=== PATIENT | male | born 1985 | race American Indian/Alaskan Native ===

== ENCOUNTER 2021-06-03 16:04 | Inpatient (IN) | payer BC, MEDICAID, OTHER ==
[2021-06-03] MEDS ORDERED: Sodium Chloride 0.9% 1,000 ML IV SCH (16:30)
[2021-06-03 17:31] LABS: PTT,PARTIAL THROMBOPLSTIN TIME 42.3 SEC (22.0-34.0)
[2021-06-03 17:43] LABS: ANION GAP 15.8 mEq/L (7-13); CHLORIDE,CL 96 mmol/L (98-107); SODIUM,NA 130 mmol/L (136-145)
[2021-06-03] MEDS: Sodium Chloride 0.9% 10 ML Syringe FLUSH PRN (17:52)
[2021-06-03] MEDS ORDERED: Cefepime 1 GM in Sodium Chloride 0.9% 50 ML IV ONE (18:07)
[2021-06-03 18:17] LABS: CORONAVIRUS COVID-19 NAA NEGATIVE (NEGATIVE); RESPIRATORY SYNCYTIAL VIR NAA NEGATIVE (NEGATIVE)
--- NOTE | 2021-06-03 18:34 | CT ---
PROCEDURE INFORMATION: Exam: CT Head Without Contrast Exam date and time: 06/03/2021 6:16 PM Age: 35 years old Clinical indication: Other: Encephalopathy, ? intracranial bleed TECHNIQUE: Imaging protocol: Computed tomography of the head without contrast. Radiation optimization: All CT scans at this facility use at least one of these dose optimization techniques: automated exposure control; mA and/or kV adjustment per patient size (includes targeted exams where dose is matched to clinical indication); or iterative reconstruction. COMPARISON: No relevant prior studies available. FINDINGS: Brain: No evidence for acute transcortical infarct. No mass effect or midline shift. No extra-axial collection. No acute intracranial hemorrhage. Basal cisterns are patent. Cerebral ventricles: No ventriculomegaly. Paranasal sinuses: Visualized sinuses are unremarkable. No fluid levels. Mastoid air cells: Visualized mastoid air cells are well aerated. Bones/joints: Unremarkable. No acute fracture. Soft tissues: Unremarkable. IMPRESSION: No evidence for acute transcortical infarct, acute intracranial hemorrhage, or mass effect.
--- NOTE | 2021-06-03 18:38 | CT ---
PROCEDURE INFORMATION: Exam: CT Chest Without Contrast; Diagnostic Exam date and time: 06/03/2021 6:20 PM Age: 35 years old Clinical indication: Other: Severe sepsis TECHNIQUE: Imaging protocol: Diagnostic computed tomography of the chest without contrast. Radiation optimization: All CT scans at this facility use at least one of these dose optimization techniques: automated exposure control; mA and/or kV adjustment per patient size (includes targeted exams where dose is matched to clinical indication); or iterative reconstruction. COMPARISON: No relevant prior studies available. FINDINGS: Lungs: Micro nodules in left lower lobe, dependent right lower lobe posterior margin of right upper lobe. No focal consolidation . Pleural spaces: Unremarkable. No pneumothorax. No pleural effusion. Heart: Unremarkable. No cardiomegaly. No pericardial effusion. Aorta: Unremarkable. No aortic aneurysm. Lymph nodes: Unremarkable. No enlarged lymph nodes. Bones/joints: Unremarkable. No acute fracture. Soft tissues: Unremarkable. IMPRESSION: Infectious or inflammatory bronchiolitis scattered throughout both lungs PROCEDURE INFORMATION: Exam: CT Abdomen And Pelvis Without Contrast Exam date and time: 06/03/2021 6:20 PM Age: 35 years old Clinical indication: Other: Severe sepsis TECHNIQUE: Imaging protocol: Computed tomography of the abdomen and pelvis without contrast. Radiation optimization: All CT scans at this facility use at least one of these dose optimization techniques: automated exposure control; mA and/or kV adjustment per patient size (includes targeted exams where dose is matched to clinical indication); or iterative reconstruction. COMPARISON: No relevant prior studies available. FINDINGS: Liver: Normal. No mass. Gallbladder and bile ducts: Normal. No calcified stones. No ductal dilation. Pancreas: Normal. No ductal dilation. Spleen: Normal. No splenomegaly. Adrenal glands: Normal. No mass. Kidneys and ureters: Normal. No hydronephrosis. Stomach and bowel: Unremarkable. No obstruction. No mucosal thickening. Appendix: No evidence of appendicitis. Intraperitoneal space: Small amount of free fluid pelvis . Vasculature: Unremarkable. No abdominal aortic aneurysm. Lymph nodes: Unremarkable. No enlarged lymph nodes. Urinary bladder: Unremarkable as visualized. Reproductive: Unremarkable as visualized. Bones/joints: Unremarkable. No acute fracture. Soft tissues: Unremarkable. IMPRESSION: Nonspecific small amount of free fluid in pelvis
[2021-06-03] MEDS ORDERED: Albuterol/Ipratropium 3.0-0.5 MG/3 ML Neb Soln NEB ONE (18:46)
[2021-06-03] MEDS ORDERED: Albuterol/Ipratropium 3.0-0.5 MG/3 ML Neb Soln ONE (18:53)
[2021-06-03] MEDS ORDERED: metroNIDAZOLE/Normal Saline 500 MG in Premix Bag 100 BAG IV ONE (19:17)
--- NOTE | 2021-06-03 19:23 | EDM.PDOC ---
Scribed by Anne-Marie Sanchez 06/03/21 1920 for Josse Aguayo MD ED HPI GENERAL MEDICAL PROBLEM - General Chief Complaint: General Stated Complaint: AMBULANCE Time Seen by Provider: 06/03/21 16:16 Source of Information: Reports: Patient, EMS, EMS Notes Reviewed, RN, RN Notes Reviewed History Limitations: Reports: No Limitations - History of Present Illness INITIAL COMMENTS - FREE TEXT/NARRATIVE: Patient arrives by [facility] Patient was seen at [facility] for weakness and was sent here after lab results in clinic indicated elevated WBC, low sodium, and pt with confusion and unexplained wt loss. Patient arrives confused and appears cachetic with dry mucous membranes and states that he has not been able to eat much for about 2 months. Patient does have complaint of bilateral leg pain and has a mild cough. Pt is unable to provide any further history. No old records are available at this time. Onset: Gradual Duration: Getting Worse Location: Reports: Generalized Quality: Reports: Ache Severity: Severe Improves with: Reports: None Worsens with: Reports: None Associated Symptoms: Reports: No Other Symptoms - Related Data Home Meds: Home Meds . [No Known Home Meds] 06/03/21 [History] Social & Family History - Family History Family Medical History: Unobtainable - Living Situation & Occupation Living situation: Reports: with Family Occupation: Unemployed ED ROS GENERAL - Review of Systems Review Of Systems: Unable To Obtain Reason Not Obtained: altered mental status ED EXAM, GENERAL - Physical Exam Exam: See Below Exam Limited By: Altered Mental Status General Appearance: Alert, Cachetic Eye Exam: Bilateral Eye: EOMI, Normal Inspection, PERRL Ears: Hearing Grossly Normal Nose: Normal Inspection Throat/Mouth: Normal Voice, No Airway Compromise, Other (Very dry oral mucosa) Head: Atraumatic, Normocephalic Neck: Normal Inspection, Supple, Non-Tender, Full Range of Motion Respiratory/Chest: No Respiratory Distress, Lungs Clear, No Accessory Muscle Use, Chest Non-Tender, Decreased Breath Sounds, Other (Occ. dry cough). No: Crackles, Rales, Rhonchi, Wheezing Cardiovascular: Regular Rate, Rhythm, No Edema GI/Abdominal: Normal Bowel Sounds, Soft, Non-Tender, No Organomegaly, No Distention, No Mass. No: Guarding, Rigid, Rebound Back Exam: Normal Inspection Extremities: Normal Inspection Neurological: No Motor/Sensory Deficits, Confused Psychiatric: Flat Affect Skin Exam: Warm, Dry, Intact, Normal Color, No Rash #1 Interpretation EKG Date: 06/03/21 Time: 16:37 Rhythm: A-Fib Rate (Beats/Min): 121 Mary D: Normal P-Wave: Present QRS: Normal ST-T: Normal QT: Normal Course - Vital Signs Last Recorded V/S: Last Vital Signs Temp 97.5 F 06/03/21 16:21 Pulse 87 06/03/21 16:21 Resp 20 06/03/21 16:21 BP 105/57 L 06/03/21 16:21 Pulse Ox 97 06/03/21 16:21 - Orders/Labs/Meds Orders: Active Orders 24 hr Category Date Time Status EKG 12 Lead [EKG Documentation Completion] [RC] STAT Care 06/03/21 16:16 Active Peripheral IV Care [RC] . DIRECTED Care 06/03/21 16:18 Active CBC WITH AUTO DIFF [HEME] Stat Lab 06/03/21 17:01 Results CULTURE BLOOD [BC] Stat Lab 06/03/21 16:55 Received CULTURE BLOOD [BC] Stat Lab 06/03/21 17:01 Received DRUG SCREEN URINE BIORAD [URCHEM] Stat Lab 06/03/21 16:16 Ordered HEPATITIS PANEL (4) [REF] Routine Lab 06/03/21 17:01 Received MANUAL DIFFERENTIAL QA/NC [HEME] Stat Lab 06/03/21 17:01 Results REFLEX LACTIC ACID YES OR NO [CHEM] Routine Lab 06/03/21 17:58 Received RPR (SYPHILIS SERO) W/ RFLX [REF] Routine Lab 06/03/21 17:01 Received UA RFX SURINDER AND CULT IF INDIC [URIN] Stat Lab 06/03/21 16:17 Ordered Sodium Chloride 0.9% [Normal Saline] 1,000 ml Med 06/03/21 16:30 Active IV ASDIRECTED Sodium Chloride 0.9% [Saline Flush] Med 06/03/21 16:17 Active 10 ml FLUSH ASDIRECTED PRN Blood Culture x2 Reflex Set [OM.PC] Stat Oth 06/03/21 16:16 Ordered Peripheral IV Insertion Adult [OM.PC] Stat Oth 06/03/21 16:16 Ordered Medication Orders Sodium Chloride (Normal Saline) 1,000 mls @ 100 mls/hr IV ASDIRECTED NABIL Last Admin: 06/03/21 17:52 Dose: 100 mls/hr Documented by: [email or web address] Sodium Chloride (Sodium Chloride 0.9% 10 Ml Syringe) 10 ml FLUSH ASDIRECTED PRN PRN Reason: Keep Vein Open Last Admin: 06/03/21 17:52 Dose: 10 ml Documented by: [email or web address] Labs: Laboratory Tests 06/03/21 06/03/21 06/03/21 Range/Units 16:55 17:01 17:01 WBC 19.2 H (5.0-10.0) 10^3/uL RBC 4.34 L (4.6-6.2) 10^6/uL Hgb 10.7 L (14.0-18.0) g/dL Hct 31.6 L (40.0-54.0) % MCV 72.8 L (80-100) fL MCH 24.7 L (27.0-34.0) pg MCHC 33.9 (33.0-35.0) g/dL Plt Count 131 L (150-450) 10^3/uL Neut % (Auto) 95.7 H (42.2-75.2) % Lymph % (Auto) 1.9 L (20.5-50.1) % [place] % (Auto) 2.3 (2-8) % Eos % (Auto) 0.0 L (1.0-3.0) % Baso % (Auto) 0.1 (0.0-1.0) % Add Manual Diff Yes PT 12.3 H (9.0-12.0) SEC INR 1.2 (0.9-1.2) APTT 42.3 H (22.0-34.0) SEC Sodium 130 L (136-145) mmol/L Potassium 4.8 (3.5-5.1) mmol/L Chloride 96 L (98-107) mmol/L Carbon Dioxide 23 (21-32) mmol/L Anion Gap 15.8 H (7-13) mEq/L BUN 35 H (7-18) mg/dL Creatinine 1.88 H (0.70-1.30) mg/dL Est Cr Clr Drug Dosing TNP Estimated GFR (MDRD) 41 BUN/Creatinine Ratio 18.6 (No establ ref range) Glucose 61 L (70-99) mg/dL Lactic Acid (0.4-2.0) mmol/L Calcium 6.5 L (8.5-10.1) mg/dL Magnesium 1.8 (1.8-2.4) mg/dL Total Bilirubin 0.6 (0.2-1.0) mg/dL AST 170 H (15-37) U/L ALT 131 H (16-63) U/L Alkaline Phosphatase 283 H (46-116) U/L Creatine Kinase 359 H (39-308) U/L Troponin I High Sens 27 (<=76) pg/mL C-Reactive Protein 18.7 H (0.0-0.9) mg/dL Total Protein 6.0 L (6.4-8.2) g/dL Albumin 1.4 L (3.4-5.0) g/dL Globulin 4.6 Albumin/Globulin Ratio 0.30 TSH, Ultra Sensitive 4.12 H (0.36-3.74) uIU/mL Ethyl Alcohol < 3 (0) mg/dL HIV-1 Antibody (NONREACTIVE) HIV-2 Antibody (NONREACTIVE) HIV P24 Antigen (NONREACTIVE) Influenza Type A RNA (NEGATIVE) RSV RNA (INAAT) (NEGATIVE) Influenza Type B RNA (NEGATIVE) SARS-CoV-2 RNA (ARGENIS) (NEGATIVE) 06/03/21 06/03/21 06/03/21 Range/Units 17:01 17:01 17:17 WBC (5.0-10.0) 10^3/uL RBC (4.6-6.2) 10^6/uL Hgb (14.0-18.0) g/dL Hct (40.0-54.0) % MCV (80-100) fL MCH (27.0-34.0) pg MCHC (33.0-35.0) g/dL Plt Count (150-450) 10^3/uL Neut % (Auto) (42.2-75.2) % Lymph % (Auto) (20.5-50.1) % [place] % (Auto) (2-8) % Eos % (Auto) (1.0-3.0) % Baso % (Auto) (0.0-1.0) % Add Manual Diff PT (9.0-12.0) SEC INR (0.9-1.2) APTT (22.0-34.0) SEC Sodium (136-145) mmol/L Potassium (3.5-5.1) mmol/L Chloride (98-107) mmol/L Carbon Dioxide (21-32) mmol/L Anion Gap (7-13) mEq/L BUN (7-18) mg/dL Creatinine (0.70-1.30) mg/dL Est Cr Clr Drug Dosing Estimated GFR (MDRD) BUN/Creatinine Ratio (No establ ref range) Glucose (70-99) mg/dL Lactic Acid 4.2 H* (0.4-2.0) mmol/L Calcium (8.5-10.1) mg/dL Magnesium (1.8-2.4) mg/dL Total Bilirubin (0.2-1.0) mg/dL AST (15-37) U/L ALT (16-63) U/L Alkaline Phosphatase (46-116) U/L Creatine Kinase (39-308) U/L Troponin I High Sens (<=76) pg/mL C-Reactive Protein (0.0-0.9) mg/dL Total Protein (6.4-8.2) g/dL Albumin (3.4-5.0) g/dL Globulin Albumin/Globulin Ratio TSH, Ultra Sensitive (0.36-3.74) uIU/mL Ethyl Alcohol (0) mg/dL HIV-1 Antibody Non-reactive (NONREACTIVE) HIV-2 Antibody Non-reactive (NONREACTIVE) HIV P24 Antigen Non-reactive (NONREACTIVE) Influenza Type A RNA Negative (NEGATIVE) RSV RNA (INAAT) Negative (NEGATIVE) Influenza Type B RNA Negative (NEGATIVE) SARS-CoV-2 RNA (ARGENIS) Negative (NEGATIVE) Meds: Medications Generic Name Dose Route Start Last Admin Trade Name Freq PRN Reason Stop Dose Admin Sodium Chloride 1,000 mls @ 100 mls/hr 06/03/21 16:30 06/03/21 17:52 Normal Saline IV 100 mls/hr ASDIRECTED NABIL Administration Sodium Chloride 10 ml 06/03/21 16:17 06/03/21 17:52 Sodium Chloride 0.9% 10 Ml Syringe FLUSH 10 ml ASDIRECTED PRN Administration Keep Vein Open Discontinued Medications Generic Name Dose Route Start Last Admin Trade Name Freq PRN Reason Stop Dose Admin Albuterol/Ipratropium 3 ml 06/03/21 18:46 06/03/21 18:53 Albuterol/Ipratropium 3.0-0.5 Mg/3 Ml Neb Soln NEB 06/03/21 18:47 3 ml ONETIME ONE Administration Albuterol/Ipratropium Confirm 06/03/21 18:53 Albuterol/Ipratropium 3.0-0.5 Mg/3 Ml Neb Soln Administered 06/03/21 18:54 Dose 3 ml .ROUTE .STK-MED ONE Cefepime HCl 1 gm/ Sodium 50 mls @ 100 mls/hr 06/03/21 18:07 06/03/21 18:48 Chloride IV 06/03/21 18:36 100 mls/hr ONETIME ONE Administration - Radiology Interpretation Free Text/Narrative:: CT Head: see Rad. report. CT Chest/Abd/Pelvic: see Rad. report. Departure - Departure Time of Disposition: 19:21 (admit to Dr. Patterson/[place]) Disposition: Admitted As Inpatient 64 Condition: Fair, Undetermined Clinical Impression: Cachexia, Hyponatremia, Unexplained weight loss Sepsis Qualifiers: Sepsis type: sepsis due to unspecified organism Sepsis acute organ dysfunction status: without acute organ dysfunction Qualified Code(s): A41.9 - Sepsis, unspecified organism - Discharge Information Sepsis Event Note (ED) - Focused Exam Vital Signs: Vital Signs Temp Pulse Resp BP Pulse Ox 06/03/21 16:21 97.5 F 87 20 105/57 L 97 - My Orders Last 24 Hours: My Active Orders 06/03/21 16:16 EKG 12 Lead [EKG Documentation Completion] [RC] STAT DRUG SCREEN URINE BIORAD [URCHEM] Stat Blood Culture x2 Reflex Set [OM.PC] Stat Peripheral IV Insertion Adult [OM.PC] Stat 06/03/21 16:17 UA RFX SURINDER AND CULT IF INDIC [URIN] Stat Sodium Chloride 0.9% [Saline Flush] 10 ml FLUSH ASDIRECTED PRN 06/03/21 16:18 Peripheral IV Care [RC] . DIRECTED 06/03/21 16:30 Sodium Chloride 0.9% [Normal Saline] 1,000 ml IV ASDIRECTED 06/03/21 16:55 CULTURE BLOOD [BC] Stat 06/03/21 17:01 CBC WITH AUTO DIFF [HEME] Stat CULTURE BLOOD [BC] Stat HEPATITIS PANEL (4) [REF] Routine MANUAL DIFFERENTIAL QA/NC [HEME] Stat RPR (SYPHILIS SERO) W/ RFLX [REF] Routine 06/03/21 17:58 REFLEX LACTIC ACID YES OR NO [CHEM] Routine - Assessment/Plan Last 24 Hours: My Active Orders 06/03/21 16:16 EKG 12 Lead [EKG Documentation Completion] [RC] STAT DRUG SCREEN URINE BIORAD [URCHEM] Stat Blood Culture x2 Reflex Set [OM.PC] Stat Peripheral IV Insertion Adult [OM.PC] Stat 06/03/21 16:17 UA RFX SURINDER AND CULT IF INDIC [URIN] Stat Sodium Chloride 0.9% [Saline Flush] 10 ml FLUSH ASDIRECTED PRN 06/03/21 16:18 Peripheral IV Care [RC] . DIRECTED 06/03/21 16:30 Sodium Chloride 0.9% [Normal Saline] 1,000 ml IV ASDIRECTED 06/03/21 16:55 CULTURE BLOOD [BC] Stat 06/03/21 17:01 CBC WITH AUTO DIFF [HEME] Stat CULTURE BLOOD [BC] Stat HEPATITIS PANEL (4) [REF] Routine MANUAL DIFFERENTIAL QA/NC [HEME] Stat RPR (SYPHILIS SERO) W/ RFLX [REF] Routine 06/03/21 17:58 REFLEX LACTIC ACID YES OR NO [CHEM] Routine I have read and agree with the documentation that has been completed regarding this visit. By signing this record, I attest that the documentation was completed in my physical presence and is an accurate record of the encounter.
[2021-06-03] MEDS ORDERED: 50% Dextrose in Water 50 ML Syringe ONE (19:49)
[2021-06-03] MEDS ORDERED: 50% Dextrose in Water 50 ML Syringe IVPUSH ONE (19:53)
[2021-06-03] MEDS ORDERED: Acetaminophen 325 MG Tab PO PRN (20:13)
[2021-06-03] MEDS ORDERED: Ondansetron 4 MG Tab.DIS PO PRN (20:13)
[2021-06-03] MEDS ORDERED: Ondansetron 4 MG/2 ML SDV IVPUSH PRN (20:13)
--- NOTE | 2021-06-03 20:26 | PCM.HP ---
H&P History of Present Illness - General Date of Service: 06/03/21 Admit Problem/Dx: Admission Diagnosis/Problem Admission Diagnosis/Problem Septicemia, Sepsis Source of Information: Patient, Provider (ER) - History of Present Illness Initial Comments - Free Text/Narative: 35 yo with limited information from his past from patient - he denies chronic medical problems has been loosing wght for 2-3 months getting weaker has cough diffuse joint pain c/o cough for days feels warm not taking meds, no known allergy went to local clinic - noted hyponatremia NA: 126, wght loss sent to ER - Related Data Allergies/Adverse Reactions: Allergies Allergy/AdvReac Type Severity Reaction Status Date / Time No Known Allergies Allergy Verified 06/03/21 17:30 Home Medications: Home Meds . [No Known Home Meds] 06/03/21 [History] Past Medical History Respiratory History: Reports: Asthma Psychiatric History: Reports: Depression Endocrine/Metabolic History: Reports: Hyperthyroidism Social & Family History - Family History Family Medical History: Unobtainable - Tobacco Use Tobacco Use Status *Q: Current Status Unknown - Recreational Drug Use Recreational Drug Use: No - Living Situation & Occupation Living situation: Reports: with Family Occupation: Unemployed H&P Review of Systems - Review of Systems: Review Of Systems: Unable To Obtain Reason Not Obtained: limited due to poor historian, confusion General: Reports: Fever (subjective) Pulmonary: Reports: Cough, Sputum. Denies: Shortness of Breath, Hemoptysis Cardiovascular: Denies: Chest Pain, Edema Gastrointestinal: Reports: Anorexia, Decreased Appetite. Denies: Nausea Musculoskeletal: Reports: Muscle Stiffness Psychiatric: Reports: Confusion Neurological: Reports: Confusion Hematologic/Lymphatic: Reports: Anemia Exam - Exam Exam: See Below - Vital Signs Vital Signs: Last Vital Signs Temp 97.5 F 06/03/21 16:21 Pulse 87 06/03/21 16:21 Resp 20 06/03/21 16:21 BP 105/57 L 06/03/21 16:21 Pulse Ox 97 06/03/21 16:21 Weight: 111 lb - Exam General: Alert, Other (severely cachectic) HEENT: EOMI Neck: Supple Lungs: Clear to Auscultation, Normal Respiratory Effort. No: Wheezing Cardiovascular: Regular Rate, Regular Rhythm, Tachycardia GI/Abdominal Exam: Normal Bowel Sounds, Soft, Non-Tender Extremities: No Pedal Edema - Patient Data Lab Results Last 24 hrs: Laboratory Results - last 24 hr 06/03/21 06/03/21 06/03/21 Range/Units 16:55 17:01 17:01 WBC 19.2 H (5.0-10.0) 10^3/uL RBC 4.34 L (4.6-6.2) 10^6/uL Hgb 10.7 L (14.0-18.0) g/dL Hct 31.6 L (40.0-54.0) % MCV 72.8 L (80-100) fL MCH 24.7 L (27.0-34.0) pg MCHC 33.9 (33.0-35.0) g/dL Plt Count 131 L (150-450) 10^3/uL Neut % (Auto) 95.7 H (42.2-75.2) % Lymph % (Auto) 1.9 L (20.5-50.1) % Starke % (Auto) 2.3 (2-8) % Eos % (Auto) 0.0 L (1.0-3.0) % Baso % (Auto) 0.1 (0.0-1.0) % Add Manual Diff Yes PT 12.3 H (9.0-12.0) SEC INR 1.2 (0.9-1.2) APTT 42.3 H (22.0-34.0) SEC Sodium 130 L (136-145) mmol/L Potassium 4.8 (3.5-5.1) mmol/L Chloride 96 L (98-107) mmol/L Carbon Dioxide 23 (21-32) mmol/L Anion Gap 15.8 H (7-13) mEq/L BUN 35 H (7-18) mg/dL Creatinine 1.88 H (0.70-1.30) mg/dL Est Cr Clr Drug Dosing TNP Estimated GFR (MDRD) 41 BUN/Creatinine Ratio 18.6 (No establ ref range) Glucose 61 L (70-99) mg/dL POC Glucose (70-99) mg/dL Lactic Acid (0.4-2.0) mmol/L Calcium 6.5 L (8.5-10.1) mg/dL Magnesium 1.8 (1.8-2.4) mg/dL Total Bilirubin 0.6 (0.2-1.0) mg/dL AST 170 H (15-37) U/L ALT 131 H (16-63) U/L Alkaline Phosphatase 283 H (46-116) U/L Creatine Kinase 359 H (39-308) U/L Troponin I High Sens 27 (<=76) pg/mL C-Reactive Protein 18.7 H (0.0-0.9) mg/dL Total Protein 6.0 L (6.4-8.2) g/dL Albumin 1.4 L (3.4-5.0) g/dL Globulin 4.6 Albumin/Globulin Ratio 0.30 TSH, Ultra Sensitive 4.12 H (0.36-3.74) uIU/mL Ethyl Alcohol < 3 (0) mg/dL HIV-1 Antibody (NONREACTIVE) HIV-2 Antibody (NONREACTIVE) HIV P24 Antigen (NONREACTIVE) Influenza Type A RNA (NEGATIVE) RSV RNA (INAAT) (NEGATIVE) Influenza Type B RNA (NEGATIVE) SARS-CoV-2 RNA (ARGENIS) (NEGATIVE) 06/03/21 06/03/21 06/03/21 Range/Units 17:01 17:01 17:17 WBC (5.0-10.0) 10^3/uL RBC (4.6-6.2) 10^6/uL Hgb (14.0-18.0) g/dL Hct (40.0-54.0) % MCV (80-100) fL MCH (27.0-34.0) pg MCHC (33.0-35.0) g/dL Plt Count (150-450) 10^3/uL Neut % (Auto) (42.2-75.2) % Lymph % (Auto) (20.5-50.1) % Starke % (Auto) (2-8) % Eos % (Auto) (1.0-3.0) % Baso % (Auto) (0.0-1.0) % Add Manual Diff PT (9.0-12.0) SEC INR (0.9-1.2) APTT (22.0-34.0) SEC Sodium (136-145) mmol/L Potassium (3.5-5.1) mmol/L Chloride (98-107) mmol/L Carbon Dioxide (21-32) mmol/L Anion Gap (7-13) mEq/L BUN (7-18) mg/dL Creatinine (0.70-1.30) mg/dL Est Cr Clr Drug Dosing Estimated GFR (MDRD) BUN/Creatinine Ratio (No establ ref range) Glucose (70-99) mg/dL POC Glucose (70-99) mg/dL Lactic Acid 4.2 H* (0.4-2.0) mmol/L Calcium (8.5-10.1) mg/dL Magnesium (1.8-2.4) mg/dL Total Bilirubin (0.2-1.0) mg/dL AST (15-37) U/L ALT (16-63) U/L Alkaline Phosphatase (46-116) U/L Creatine Kinase (39-308) U/L Troponin I High Sens (<=76) pg/mL C-Reactive Protein (0.0-0.9) mg/dL Total Protein (6.4-8.2) g/dL Albumin (3.4-5.0) g/dL Globulin Albumin/Globulin Ratio TSH, Ultra Sensitive (0.36-3.74) uIU/mL Ethyl Alcohol (0) mg/dL HIV-1 Antibody Non-reactive (NONREACTIVE) HIV-2 Antibody Non-reactive (NONREACTIVE) HIV P24 Antigen Non-reactive (NONREACTIVE) Influenza Type A RNA Negative (NEGATIVE) RSV RNA (INAAT) Negative (NEGATIVE) Influenza Type B RNA Negative (NEGATIVE) SARS-CoV-2 RNA (ARGENIS) Negative (NEGATIVE) 06/03/21 Range/Units 19:48 WBC (5.0-10.0) 10^3/uL RBC (4.6-6.2) 10^6/uL Hgb (14.0-18.0) g/dL Hct (40.0-54.0) % MCV (80-100) fL MCH (27.0-34.0) pg MCHC (33.0-35.0) g/dL Plt Count (150-450) 10^3/uL Neut % (Auto) (42.2-75.2) % Lymph % (Auto) (20.5-50.1) % Starke % (Auto) (2-8) % Eos % (Auto) (1.0-3.0) % Baso % (Auto) (0.0-1.0) % Add Manual Diff PT (9.0-12.0) SEC INR (0.9-1.2) APTT (22.0-34.0) SEC Sodium (136-145) mmol/L Potassium (3.5-5.1) mmol/L Chloride (98-107) mmol/L Carbon Dioxide (21-32) mmol/L Anion Gap (7-13) mEq/L BUN (7-18) mg/dL Creatinine (0.70-1.30) mg/dL Est Cr Clr Drug Dosing Estimated GFR (MDRD) BUN/Creatinine Ratio (No establ ref range) Glucose (70-99) mg/dL POC Glucose 37 L* (70-99) mg/dL Lactic Acid (0.4-2.0) mmol/L Calcium (8.5-10.1) mg/dL Magnesium (1.8-2.4) mg/dL Total Bilirubin (0.2-1.0) mg/dL AST (15-37) U/L ALT (16-63) U/L Alkaline Phosphatase (46-116) U/L Creatine Kinase (39-308) U/L Troponin I High Sens (<=76) pg/mL C-Reactive Protein (0.0-0.9) mg/dL Total Protein (6.4-8.2) g/dL Albumin (3.4-5.0) g/dL Globulin Albumin/Globulin Ratio TSH, Ultra Sensitive (0.36-3.74) uIU/mL Ethyl Alcohol (0) mg/dL HIV-1 Antibody (NONREACTIVE) HIV-2 Antibody (NONREACTIVE) HIV P24 Antigen (NONREACTIVE) Influenza Type A RNA (NEGATIVE) RSV RNA (INAAT) (NEGATIVE) Influenza Type B RNA (NEGATIVE) SARS-CoV-2 RNA (ARGENIS) (NEGATIVE) Result Diagrams: 06/03/21 17:01 06/03/21 17:01 - Problem List (1) Pneumonia SNOMED Code(s): 979008762 ICD Code: J18.9 - PNEUMONIA, UNSPECIFIED ORGANISM Status: Acute Current Visit: Yes (2) Pneumonia SNOMED Code(s): 702823229 ICD Code: J18.9 - PNEUMONIA, UNSPECIFIED ORGANISM Status: Acute Current Visit: Yes (3) Renal failure SNOMED Code(s): 24853026 ICD Code: N19 - UNSPECIFIED KIDNEY FAILURE Status: Acute Current Visit: Yes (4) Anemia SNOMED Code(s): 924859076 ICD Code: D64.9 - ANEMIA, UNSPECIFIED Status: Acute Current Visit: Yes (5) Acute metabolic encephalopathy SNOMED Code(s): 11654867, 702448681 ICD Code: G93.41 - METABOLIC ENCEPHALOPATHY Status: Acute Current Visit: Yes (6) Cachexia SNOMED Code(s): 047689933 ICD Code: R64 - CACHEXIA Status: Acute Current Visit: Yes (7) Hyponatremia SNOMED Code(s): 85413864 ICD Code: E87.1 - HYPO-OSMOLALITY AND HYPONATREMIA Status: Acute Current Visit: Yes (8) Sepsis SNOMED Code(s): 42026491 ICD Code: A41.9 - SEPSIS, UNSPECIFIED ORGANISM Status: Acute Current Visit: Yes Qualifiers: Sepsis type: sepsis due to unspecified organism Sepsis acute organ dysfunction status: without acute organ dysfunction Qualified Code(s): A41.9 - Sepsis, unspecified organism (9) Unexplained weight loss SNOMED Code(s): 295714969 ICD Code: R63.4 - ABNORMAL WEIGHT LOSS Status: Acute Current Visit: Yes Problem List Initiated/Reviewed/Updated: Yes Orders Last 24hrs: Active Orders 24 hr Category Date Time Status Admission Diagnosis [ADT] Stat ADT 06/03/21 18:02 Ordered Admission Status [Patient Status] [ADT] Routine ADT 06/03/21 18:02 Active Nurse Communication: Isolation [RC] ASDIRECTED Care 06/03/21 19:33 Active Oxygen Therapy [RC] PRN Care 06/03/21 20:13 Ordered Peripheral IV Care [RC] . DIRECTED Care 06/03/21 16:18 Active RT Aerosol Therapy [RC] ASDIRECTED Care 06/03/21 18:46 Active Up With Assistance [RC] ASDIRECTED Care 06/03/21 20:13 Ordered VTE/DVT Education [RC] PER UNIT ROUTINE Care 06/03/21 20:13 Ordered Vital Signs [RC] Q4H Care 06/03/21 20:13 Ordered OT Evaluation and Treatment [CONS] Routine Cons 06/03/21 20:13 Ordered PT Evaluation and Treatment [CONS] Routine Cons 06/03/21 20:13 Ordered Regular Diet [DIET] Diet 06/03/21 Breakfast Ordered ACID FAST BACILLI SMEAR [AFB] DAILY Lab 06/04/21 19:45 Ordered ACID FAST BACILLI SMEAR [AFB] DAILY Lab 06/05/21 19:45 Ordered AMMONIA VENOUS [CHEM] Routine Lab 06/03/21 19:12 Ordered BASIC METABOLIC PANEL,BMP [CHEM] AM Lab 06/04/21 05:15 Ordered CBC WITH AUTO DIFF [HEME] AM Lab 06/04/21 05:15 Ordered CBC WITH AUTO DIFF [HEME] Stat Lab 06/03/21 17:01 Results CULTURE BLOOD [BC] Stat Lab 06/03/21 16:55 Received CULTURE BLOOD [BC] Stat Lab 06/03/21 17:01 Received CULTURE SPUTUM + SMEAR [RM] Routine Lab 06/03/21 19:32 Ordered DRUG SCREEN URINE BIORAD [URCHEM] Stat Lab 06/03/21 16:16 Ordered FOLIC ACID [CHEM] AM Lab 06/04/21 05:11 Ordered FREE T3 [REF] AM Lab 06/04/21 05:11 Ordered HEPATIC FUNCTION PANEL,HFP [CHEM] AM Lab 06/04/21 05:11 Ordered HEPATITIS PANEL (4) [REF] Routine Lab 06/03/21 17:01 Received IRON,FE [CHEM] Routine Lab 06/04/21 05:00 Ordered IRON/TIBC [CHEM] Routine Lab 06/04/21 05:00 Ordered LACTIC ACID [CHEM] Q4H Lab 06/04/21 00:03 Ordered LACTIC ACID [CHEM] Q4H Lab 06/04/21 04:03 Ordered LACTIC ACID [CHEM] Routine Lab 06/03/21 19:58 Ordered MAGNESIUM [CHEM] AM Lab 06/04/21 05:11 Ordered MANUAL DIFFERENTIAL QA/NC [HEME] Stat Lab 06/03/21 17:01 Results PHOSPHORUS [CHEM] AM Lab 06/04/21 05:11 Ordered RETICULOCYTE COUNT [HEME] Routine Lab 06/03/21 20:05 Ordered RPR (SYPHILIS SERO) W/ RFLX [REF] Routine Lab 06/03/21 17:01 Received T4 FREE [CHEM] AM Lab 06/04/21 05:11 Ordered TOTAL IRON BINDING CAPACITY [CHEM] Routine Lab 06/04/21 05:00 Ordered UA RFX SURINDER AND CULT IF INDIC [URIN] Stat Lab 06/03/21 16:17 Ordered VITAMIN B12 [CHEM] AM Lab 06/04/21 05:11 Ordered Acetaminophen [TylenoL] Med 06/03/21 20:13 Ordered 650 mg PO Q4H PRN Acetaminophen/HYDROcodone [Cecil 325-10 MG] Med 06/03/21 20:13 Ordered 1 tab PO Q4H PRN Cefepime [Maxipime] 1 gm Med 06/04/21 02:00 Ordered Sodium Chloride 0.9% [Normal Saline AdvBag] 50 ml IV Q8HR Dextrose 5%-0.9% NaCl [Dextrose 5%-Normal Saline] 1,000 Med 06/03/21 20:00 Ordered ml IV ASDIRECTED Heparin Sodium Med 06/03/21 22:00 Ordered 5,000 units SUBCUT Q8HR Ondansetron [Zofran ODT] Med 06/03/21 20:13 Ordered 4 mg PO Q4H PRN Ondansetron [Zofran] Med 06/03/21 20:13 Ordered 4 mg IVPUSH Q4H PRN Sodium Chloride 0.9% [Saline Flush] Med 06/03/21 16:17 Active 10 ml FLUSH ASDIRECTED PRN metroNIDAZOLE/Normal Saline [Flagyl in NS 500 MG/100 ML Med 06/04/21 02:00 Ordered ] 500 mg Premix Bag 100 bag IV Q8H Blood Culture x2 Reflex Set [OM.PC] Stat Oth 06/03/21 16:16 Ordered Isolation [COMM] Routine Oth 06/03/21 19:32 Active Peripheral IV Insertion Adult [OM.PC] Stat Oth 06/03/21 16:16 Ordered Resuscitation Status Routine Resus Stat 06/03/21 20:13 Ordered Medication Orders Acetaminophen (Acetaminophen 325 Mg Tab) 650 mg PO Q4H PRN PRN Reason: Pain (Mild 1-3)/fever Hydrocodone Bitart/Acetaminophen (Acetaminophen/Hydrocodone 325-10 Mg Tab) 1 tab PO Q4H PRN PRN Reason: Pain (moderate 4-6) Heparin Sodium (Porcine) (Heparin Sodium 5,000 Units/Ml Vial) 5,000 units SUBCUT Q8HR NABIL Cefepime HCl 1 gm/ Sodium (Chloride) 50 mls @ 100 mls/hr IV Q8H NABIL Dextrose/Sodium Chloride (Dextrose 5%-Normal Saline) 1,000 mls @ 150 mls/hr IV ASDIRECTED NABIL Metronidazole 500 mg/ Premix 100 mls @ 100 mls/hr IV Q8H NABIL Ondansetron HCl (Ondansetron 4 Mg Tab.Dis) 4 mg PO Q4H PRN PRN Reason: nausea, able to take PO Ondansetron HCl (Ondansetron 4 Mg/2 Ml Sdv) 4 mg IVPUSH Q4H PRN PRN Reason: Nausea/Vomiting Sodium Chloride (Sodium Chloride 0.9% 10 Ml Syringe) 10 ml FLUSH ASDIRECTED PRN PRN Reason: Keep Vein Open Last Admin: 06/03/21 17:52 Dose: 10 ml Documented by: [id number] Assessment/Plan Comment:: presented with wght loss, tachycardia, cough appears chronically ill Sepsis Likely due to pulmonary infection Will give IVF Trend lactic acid Treat infection Pneumonia Atypical nodules on CT chest Obtain sputum cx Obtain blood cx Obtain ua and urine cx Obtain acid fast bacilli Droplet isolation for possible TB Hypoglycemia Severe malnutrition Give d50 one dose now Start IVF with D5 Check BS q4h and give dextrose as needed Acute encephalopathy likely acute, metabolic Might relate to sepsis Might relate to hypoglycemia correct Check ammonia, check urine drug Doubt meningitis Hyponatremia Mild Will follow with hydration Anemia, microcytic Likely anemia of chronic disease Will follow hgb Check b12, folate, iron, retic count Elevated LFts High ast/alt Normal tbili Check for viral hepatitis Malnutrition Severe HIV negative Ct chest/abd/pelvis negative for malignancy 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 Tb TSH mildly elevated likely not enough for this severe wght loss check free t3, free t4 Renal failure Likely acute Will hydrate well Dvt prophylaxis Sq heparin
[2021-06-03] MEDS: Acetaminophen/HYDROcodone 325-10 MG Tab PO PRN (21:11)
[2021-06-03] MEDS: Heparin Sodium 5,000 Units/ML Vial SUBCUT SCH (21:11)
[2021-06-03] MEDS: Dextrose 5%-0.9% NaCl 1,000 ML IV SCH (21:17)
[2021-06-03] MEDS: 50% Dextrose in Water 50 ML Syringe IVPUSH PRN (23:09)
[2021-06-03 23:46] LABS: AMPHETAMINES,URINE NEGATIVE (NEGATIVE); BARBITURATES,URINE NEGATIVE (NEGATIVE); BENZODIAZEPINE,URINE NEGATIVE (NEGATIVE); MDMA (ECSTASY), URINE NEGATIVE (NEGATIVE); METHADONE,URINE NEGATIVE (NEGATIVE); METHAMPHETAMINES,URINE NEGATIVE (NEGATIVE); OPIATES,URINE NEGATIVE (NEGATIVE); OXYCODONE,URINE NEGATIVE (NEGATIVE); PHENCYCLIDINE,URINE NEGATIVE (NEGATIVE); TCA,URINE NEGATIVE (NEGATIVE)
[2021-06-04] MEDS: Cefepime 1 GM in Sodium Chloride 0.9% 50 ML IV SCH ×3 (01:32→17:21)
[2021-06-04] MEDS: 50% Dextrose in Water 50 ML Syringe IVPUSH PRN ×4 (01:37→08:33)
[2021-06-04] MEDS: metroNIDAZOLE/Normal Saline 500 MG in Premix Bag 100 BAG IV SCH ×3 (04:05→20:40)
[2021-06-04] MEDS: Dextrose 5%-0.9% NaCl 1,000 ML IV SCH ×3 (05:01→18:20)
[2021-06-04] MEDS: Heparin Sodium 5,000 Units/ML Vial SUBCUT SCH ×3 (05:54→21:40)
[2021-06-04] MEDS: Acetaminophen/HYDROcodone 325-10 MG Tab PO PRN ×2 (06:13→14:09)
[2021-06-04 08:45] LABS: ANION GAP 16.3 mEq/L (7-13)
[2021-06-04] MEDS: Sodium Chloride 0.9% 10 ML Syringe FLUSH PRN ×2 (12:38→17:22)
--- NOTE | 2021-06-04 14:55 | PCM.PN ---
- General Info Date of Service: 06/04/21 Subjective Update: overnight had recurrent hypoglycemia, received multiple doses of D50 push more alert this morning starting to eat/drink no c/o headache, no associated focal neuro deficit had a formed BM with small amount of fresh red blood Functional Status: Reports: Tolerating Diet - Review of Systems General: Reports: Weakness. Denies: Fever Pulmonary: Denies: Shortness of Breath Cardiovascular: Denies: Chest Pain, Edema Neurological: Reports: Confusion Psychiatric: Denies: Anxiety, Agitation - Patient Data Vitals - Most Recent: Last Vital Signs Temp 96.4 F L 06/04/21 12:00 Pulse 86 06/04/21 12:00 Resp 20 06/04/21 12:00 BP 92/51 L 06/04/21 12:00 Pulse Ox 98 06/04/21 12:00 Weight - Most Recent: 107 lb 3.2 oz I&O - Last 24 Hours: Intake & Output 06/03/21 06/04/21 06/04/21 22:59 06:59 14:59 Intake Total 600 650 Output Total 500 Balance 600 -500 650 Lab Results Last 24 Hours: Laboratory Results - last 24 hr 06/03/21 06/03/21 06/03/21 Range/Units 16:55 17:01 17:01 WBC 19.2 H (5.0-10.0) 10^3/uL RBC 4.34 L (4.6-6.2) 10^6/uL Hgb 10.7 L (14.0-18.0) g/dL Hct 31.6 L (40.0-54.0) % MCV 72.8 L (80-100) fL MCH 24.7 L (27.0-34.0) pg MCHC 33.9 (33.0-35.0) g/dL Plt Count 131 L (150-450) 10^3/uL Neut % (Auto) 95.7 H (42.2-75.2) % Lymph % (Auto) 1.9 L (20.5-50.1) % [place] % (Auto) 2.3 (2-8) % Eos % (Auto) 0.0 L (1.0-3.0) % Baso % (Auto) 0.1 (0.0-1.0) % Add Manual Diff Yes Neutrophils % (Manual) 38 L (42-75) % Band Neutrophils % 60 % Lymphocytes % (Manual) 1 L (20-50) % Monocytes % (Manual) 1 L (2-8) % Vacuolated Monocytes Few Toxic Granulation Few Platelet Estimate Decreased Hypochromasia 1+ slight Poikilocytosis 2+ moderate Anisocytosis 1+ slight Microcytosis 2+ moderate Percent Retic (0.5-1.5) % PT 12.3 H (9.0-12.0) SEC INR 1.2 (0.9-1.2) APTT 42.3 H (22.0-34.0) SEC Sodium 130 L (136-145) mmol/L Potassium 4.8 (3.5-5.1) mmol/L Chloride 96 L (98-107) mmol/L Carbon Dioxide 23 (21-32) mmol/L Anion Gap 15.8 H (7-13) mEq/L BUN 35 H (7-18) mg/dL Creatinine 1.88 H (0.70-1.30) mg/dL Est Cr Clr Drug Dosing TNP Estimated GFR (MDRD) 41 BUN/Creatinine Ratio 18.6 (No establ ref range) Glucose 61 L (70-99) mg/dL POC Glucose (70-99) mg/dL Lactic Acid (0.4-2.0) mmol/L Calcium 6.5 L (8.5-10.1) mg/dL Phosphorus (2.6-4.7) mg/dL Magnesium 1.8 (1.8-2.4) mg/dL Iron (65-175) ug/dL TIBC (250-450) ug/dL % Saturation (20.0-50.0) % Total Bilirubin 0.6 (0.2-1.0) mg/dL Direct Bilirubin (0.0-0.2) mg/dL Indirect Bilirubin AST 170 H (15-37) U/L ALT 131 H (16-63) U/L Alkaline Phosphatase 283 H (46-116) U/L Ammonia (11-32) umol/L Creatine Kinase 359 H (39-308) U/L Troponin I High Sens 27 (<=76) pg/mL C-Reactive Protein 18.7 H (0.0-0.9) mg/dL Total Protein 6.0 L (6.4-8.2) g/dL Albumin 1.4 L (3.4-5.0) g/dL Globulin 4.6 Albumin/Globulin Ratio 0.30 Vitamin B12 (193-986) pg/mL Folate (8.6-58.9) ng/mL Free T4 (0.76-1.46) ng/dL TSH, Ultra Sensitive 4.12 H (0.36-3.74) uIU/mL Urine Color (YELLOW) Urine Appearance (CLEAR) Urine pH (5.0-9.0) Ur Specific [place] (1.005-1.030) Urine Protein (NEGATIVE) Urine Glucose (UA) (NEGATIVE) Urine Ketones (NEGATIVE) Urine Occult Blood (NEGATIVE) Urine Nitrite (NEGATIVE) Urine Bilirubin (NEGATIVE) Urine Urobilinogen (0.2-1.0) mg/dL Ur Leukocyte Esterase (NEGATIVE) Urine RBC (0-5) /HPF Urine WBC (0-5/HPF) /HPF Ur Epithelial Cells (NOT SEEN) /HPF Urine Bacteria (0-FEW/HPF) /HPF Fine Granular Casts (NOT SEEN) /LPF Urine Opiates Screen (NEGATIVE) Ur Oxycodone Screen (NEGATIVE) Urine Methadone Screen (NEGATIVE) Ur Barbiturates Screen (NEGATIVE) U Tricyclic Antidepress (NEGATIVE) Ur Phencyclidine Scrn (NEGATIVE) Ur Amphetamine Screen (NEGATIVE) U Methamphetamines Scrn (NEGATIVE) Urine MDMA Screen (NEGATIVE) U Benzodiazepines Scrn (NEGATIVE) Urine Cocaine Screen (NEGATIVE) U Marijuana (THC) Screen (NEGATIVE) Ethyl Alcohol < 3 (0) mg/dL HIV-1 Antibody (NONREACTIVE) HIV-2 Antibody (NONREACTIVE) HIV P24 Antigen (NONREACTIVE) Influenza Type A RNA (NEGATIVE) RSV RNA (INAAT) (NEGATIVE) Influenza Type B RNA (NEGATIVE) SARS-CoV-2 RNA (ARGENIS) (NEGATIVE) 06/03/21 06/03/21 06/03/21 Range/Units 17:01 17:01 17:01 WBC (5.0-10.0) 10^3/uL RBC (4.6-6.2) 10^6/uL Hgb (14.0-18.0) g/dL Hct (40.0-54.0) % MCV (80-100) fL MCH (27.0-34.0) pg MCHC (33.0-35.0) g/dL Plt Count (150-450) 10^3/uL Neut % (Auto) (42.2-75.2) % Lymph % (Auto) (20.5-50.1) % [place] % (Auto) (2-8) % Eos % (Auto) (1.0-3.0) % Baso % (Auto) (0.0-1.0) % Add Manual Diff Neutrophils % (Manual) (42-75) % Band Neutrophils % % Lymphocytes % (Manual) (20-50) % Monocytes % (Manual) (2-8) % Vacuolated Monocytes Toxic Granulation Platelet Estimate Hypochromasia Poikilocytosis Anisocytosis Microcytosis Percent Retic 2 H (0.5-1.5) % PT (9.0-12.0) SEC INR (0.9-1.2) APTT (22.0-34.0) SEC Sodium (136-145) mmol/L Potassium (3.5-5.1) mmol/L Chloride (98-107) mmol/L Carbon Dioxide (21-32) mmol/L Anion Gap (7-13) mEq/L BUN (7-18) mg/dL Creatinine (0.70-1.30) mg/dL Est Cr Clr Drug Dosing Estimated GFR (MDRD) BUN/Creatinine Ratio (No establ ref range) Glucose (70-99) mg/dL POC Glucose (70-99) mg/dL Lactic Acid 4.2 H* (0.4-2.0) mmol/L Calcium (8.5-10.1) mg/dL Phosphorus (2.6-4.7) mg/dL Magnesium (1.8-2.4) mg/dL Iron (65-175) ug/dL TIBC (250-450) ug/dL % Saturation (20.0-50.0) % Total Bilirubin (0.2-1.0) mg/dL Direct Bilirubin (0.0-0.2) mg/dL Indirect Bilirubin AST (15-37) U/L ALT (16-63) U/L Alkaline Phosphatase (46-116) U/L Ammonia (11-32) umol/L Creatine Kinase (39-308) U/L Troponin I High Sens (<=76) pg/mL C-Reactive Protein (0.0-0.9) mg/dL Total Protein (6.4-8.2) g/dL Albumin (3.4-5.0) g/dL Globulin Albumin/Globulin Ratio Vitamin B12 (193-986) pg/mL Folate (8.6-58.9) ng/mL Free T4 (0.76-1.46) ng/dL TSH, Ultra Sensitive (0.36-3.74) uIU/mL Urine Color (YELLOW) Urine Appearance (CLEAR) Urine pH (5.0-9.0) Ur Specific [place] (1.005-1.030) Urine Protein (NEGATIVE) Urine Glucose (UA) (NEGATIVE) Urine Ketones (NEGATIVE) Urine Occult Blood (NEGATIVE) Urine Nitrite (NEGATIVE) Urine Bilirubin (NEGATIVE) Urine Urobilinogen (0.2-1.0) mg/dL Ur Leukocyte Esterase (NEGATIVE) Urine RBC (0-5) /HPF Urine WBC (0-5/HPF) /HPF Ur Epithelial Cells (NOT SEEN) /HPF Urine Bacteria (0-FEW/HPF) /HPF Fine Granular Casts (NOT SEEN) /LPF Urine Opiates Screen (NEGATIVE) Ur Oxycodone Screen (NEGATIVE) Urine Methadone Screen (NEGATIVE) Ur Barbiturates Screen (NEGATIVE) U Tricyclic Antidepress (NEGATIVE) Ur Phencyclidine Scrn (NEGATIVE) Ur Amphetamine Screen (NEGATIVE) U Methamphetamines Scrn (NEGATIVE) Urine MDMA Screen (NEGATIVE) U Benzodiazepines Scrn (NEGATIVE) Urine Cocaine Screen (NEGATIVE) U Marijuana (THC) Screen (NEGATIVE) Ethyl Alcohol (0) mg/dL HIV-1 Antibody Non-reactive (NONREACTIVE) HIV-2 Antibody Non-reactive (NONREACTIVE) HIV P24 Antigen Non-reactive (NONREACTIVE) Influenza Type A RNA (NEGATIVE) RSV RNA (INAAT) (NEGATIVE) Influenza Type B RNA (NEGATIVE) SARS-CoV-2 RNA (ARGENIS) (NEGATIVE) 06/03/21 06/03/21 06/03/21 Range/Units 17:17 19:40 19:48 WBC (5.0-10.0) 10^3/uL RBC (4.6-6.2) 10^6/uL Hgb (14.0-18.0) g/dL Hct (40.0-54.0) % MCV (80-100) fL MCH (27.0-34.0) pg MCHC (33.0-35.0) g/dL Plt Count (150-450) 10^3/uL Neut % (Auto) (42.2-75.2) % Lymph % (Auto) (20.5-50.1) % [place] % (Auto) (2-8) % Eos % (Auto) (1.0-3.0) % Baso % (Auto) (0.0-1.0) % Add Manual Diff Neutrophils % (Manual) (42-75) % Band Neutrophils % % Lymphocytes % (Manual) (20-50) % Monocytes % (Manual) (2-8) % Vacuolated Monocytes Toxic Granulation Platelet Estimate Hypochromasia Poikilocytosis Anisocytosis Microcytosis Percent Retic (0.5-1.5) % PT (9.0-12.0) SEC INR (0.9-1.2) APTT (22.0-34.0) SEC Sodium (136-145) mmol/L Potassium (3.5-5.1) mmol/L Chloride (98-107) mmol/L Carbon Dioxide (21-32) mmol/L Anion Gap (7-13) mEq/L BUN (7-18) mg/dL Creatinine (0.70-1.30) mg/dL Est Cr Clr Drug Dosing Estimated GFR (MDRD) BUN/Creatinine Ratio (No establ ref range) Glucose (70-99) mg/dL POC Glucose 37 L* (70-99) mg/dL Lactic Acid (0.4-2.0) mmol/L Calcium (8.5-10.1) mg/dL Phosphorus (2.6-4.7) mg/dL Magnesium (1.8-2.4) mg/dL Iron (65-175) ug/dL TIBC (250-450) ug/dL % Saturation (20.0-50.0) % Total Bilirubin (0.2-1.0) mg/dL Direct Bilirubin (0.0-0.2) mg/dL Indirect Bilirubin AST (15-37) U/L ALT (16-63) U/L Alkaline Phosphatase (46-116) U/L Ammonia 18 (11-32) umol/L Creatine Kinase (39-308) U/L Troponin I High Sens (<=76) pg/mL C-Reactive Protein (0.0-0.9) mg/dL Total Protein (6.4-8.2) g/dL Albumin (3.4-5.0) g/dL Globulin Albumin/Globulin Ratio Vitamin B12 (193-986) pg/mL Folate (8.6-58.9) ng/mL Free T4 (0.76-1.46) ng/dL TSH, Ultra Sensitive (0.36-3.74) uIU/mL Urine Color (YELLOW) Urine Appearance (CLEAR) Urine pH (5.0-9.0) Ur Specific [place] (1.005-1.030) Urine Protein (NEGATIVE) Urine Glucose (UA) (NEGATIVE) Urine Ketones (NEGATIVE) Urine Occult Blood (NEGATIVE) Urine Nitrite (NEGATIVE) Urine Bilirubin (NEGATIVE) Urine Urobilinogen (0.2-1.0) mg/dL Ur Leukocyte Esterase (NEGATIVE) Urine RBC (0-5) /HPF Urine WBC (0-5/HPF) /HPF Ur Epithelial Cells (NOT SEEN) /HPF Urine Bacteria (0-FEW/HPF) /HPF Fine Granular Casts (NOT SEEN) /LPF Urine Opiates Screen (NEGATIVE) Ur Oxycodone Screen (NEGATIVE) Urine Methadone Screen (NEGATIVE) Ur Barbiturates Screen (NEGATIVE) U Tricyclic Antidepress (NEGATIVE) Ur Phencyclidine Scrn (NEGATIVE) Ur Amphetamine Screen (NEGATIVE) U Methamphetamines Scrn (NEGATIVE) Urine MDMA Screen (NEGATIVE) U Benzodiazepines Scrn (NEGATIVE) Urine Cocaine Screen (NEGATIVE) U Marijuana (THC) Screen (NEGATIVE) Ethyl Alcohol (0) mg/dL HIV-1 Antibody (NONREACTIVE) HIV-2 Antibody (NONREACTIVE) HIV P24 Antigen (NONREACTIVE) Influenza Type A RNA Negative (NEGATIVE) RSV RNA (INAAT) Negative (NEGATIVE) Influenza Type B RNA Negative (NEGATIVE) SARS-CoV-2 RNA (ARGENIS) Negative (NEGATIVE) 06/03/21 06/03/21 06/03/21 Range/Units 20:43 21:15 22:57 WBC (5.0-10.0) 10^3/uL RBC (4.6-6.2) 10^6/uL Hgb (14.0-18.0) g/dL Hct (40.0-54.0) % MCV (80-100) fL MCH (27.0-34.0) pg MCHC (33.0-35.0) g/dL Plt Count (150-450) 10^3/uL Neut % (Auto) (42.2-75.2) % Lymph % (Auto) (20.5-50.1) % [place] % (Auto) (2-8) % Eos % (Auto) (1.0-3.0) % Baso % (Auto) (0.0-1.0) % Add Manual Diff Neutrophils % (Manual) (42-75) % Band Neutrophils % % Lymphocytes % (Manual) (20-50) % Monocytes % (Manual) (2-8) % Vacuolated Monocytes Toxic Granulation Platelet Estimate Hypochromasia Poikilocytosis Anisocytosis Microcytosis Percent Retic (0.5-1.5) % PT (9.0-12.0) SEC INR (0.9-1.2) APTT (22.0-34.0) SEC Sodium (136-145) mmol/L Potassium (3.5-5.1) mmol/L Chloride (98-107) mmol/L Carbon Dioxide (21-32) mmol/L Anion Gap (7-13) mEq/L BUN (7-18) mg/dL Creatinine (0.70-1.30) mg/dL Est Cr Clr Drug Dosing Estimated GFR (MDRD) BUN/Creatinine Ratio (No establ ref range) Glucose (70-99) mg/dL POC Glucose 90 60 L (70-99) mg/dL Lactic Acid 3.1 H* (0.4-2.0) mmol/L Calcium (8.5-10.1) mg/dL Phosphorus (2.6-4.7) mg/dL Magnesium (1.8-2.4) mg/dL Iron (65-175) ug/dL TIBC (250-450) ug/dL % Saturation (20.0-50.0) % Total Bilirubin (0.2-1.0) mg/dL Direct Bilirubin (0.0-0.2) mg/dL Indirect Bilirubin AST (15-37) U/L ALT (16-63) U/L Alkaline Phosphatase (46-116) U/L Ammonia (11-32) umol/L Creatine Kinase (39-308) U/L Troponin I High Sens (<=76) pg/mL C-Reactive Protein (0.0-0.9) mg/dL Total Protein (6.4-8.2) g/dL Albumin (3.4-5.0) g/dL Globulin Albumin/Globulin Ratio Vitamin B12 (193-986) pg/mL Folate (8.6-58.9) ng/mL Free T4 (0.76-1.46) ng/dL TSH, Ultra Sensitive (0.36-3.74) uIU/mL Urine Color (YELLOW) Urine Appearance (CLEAR) Urine pH (5.0-9.0) Ur Specific [place] (1.005-1.030) Urine Protein (NEGATIVE) Urine Glucose (UA) (NEGATIVE) Urine Ketones (NEGATIVE) Urine Occult Blood (NEGATIVE) Urine Nitrite (NEGATIVE) Urine Bilirubin (NEGATIVE) Urine Urobilinogen (0.2-1.0) mg/dL Ur Leukocyte Esterase (NEGATIVE) Urine RBC (0-5) /HPF Urine WBC (0-5/HPF) /HPF Ur Epithelial Cells (NOT SEEN) /HPF Urine Bacteria (0-FEW/HPF) /HPF Fine Granular Casts (NOT SEEN) /LPF Urine Opiates Screen (NEGATIVE) Ur Oxycodone Screen (NEGATIVE) Urine Methadone Screen (NEGATIVE) Ur Barbiturates Screen (NEGATIVE) U Tricyclic Antidepress (NEGATIVE) Ur Phencyclidine Scrn (NEGATIVE) Ur Amphetamine Screen (NEGATIVE) U Methamphetamines Scrn (NEGATIVE) Urine MDMA Screen (NEGATIVE) U Benzodiazepines Scrn (NEGATIVE) Urine Cocaine Screen (NEGATIVE) U Marijuana (THC) Screen (NEGATIVE) Ethyl Alcohol (0) mg/dL HIV-1 Antibody (NONREACTIVE) HIV-2 Antibody (NONREACTIVE) HIV P24 Antigen (NONREACTIVE) Influenza Type A RNA (NEGATIVE) RSV RNA (INAAT) (NEGATIVE) Influenza Type B RNA (NEGATIVE) SARS-CoV-2 RNA (ARGENIS) (NEGATIVE) 06/03/21 06/03/21 06/04/21 Range/Units 23:00 23:00 01:35 WBC (5.0-10.0) 10^3/uL RBC (4.6-6.2) 10^6/uL Hgb (14.0-18.0) g/dL Hct (40.0-54.0) % MCV (80-100) fL MCH (27.0-34.0) pg MCHC (33.0-35.0) g/dL Plt Count (150-450) 10^3/uL Neut % (Auto) (42.2-75.2) % Lymph % (Auto) (20.5-50.1) % [place] % (Auto) (2-8) % Eos % (Auto) (1.0-3.0) % Baso % (Auto) (0.0-1.0) % Add Manual Diff Neutrophils % (Manual) (42-75) % Band Neutrophils % % Lymphocytes % (Manual) (20-50) % Monocytes % (Manual) (2-8) % Vacuolated Monocytes Toxic Granulation Platelet Estimate Hypochromasia Poikilocytosis Anisocytosis Microcytosis Percent Retic (0.5-1.5) % PT (9.0-12.0) SEC INR (0.9-1.2) APTT (22.0-34.0) SEC Sodium (136-145) mmol/L Potassium (3.5-5.1) mmol/L Chloride (98-107) mmol/L Carbon Dioxide (21-32) mmol/L Anion Gap (7-13) mEq/L BUN (7-18) mg/dL Creatinine (0.70-1.30) mg/dL Est Cr Clr Drug Dosing Estimated GFR (MDRD) BUN/Creatinine Ratio (No establ ref range) Glucose (70-99) mg/dL POC Glucose 69 L (70-99) mg/dL Lactic Acid (0.4-2.0) mmol/L Calcium (8.5-10.1) mg/dL Phosphorus (2.6-4.7) mg/dL Magnesium (1.8-2.4) mg/dL Iron (65-175) ug/dL TIBC (250-450) ug/dL % Saturation (20.0-50.0) % Total Bilirubin (0.2-1.0) mg/dL Direct Bilirubin (0.0-0.2) mg/dL Indirect Bilirubin AST (15-37) U/L ALT (16-63) U/L Alkaline Phosphatase (46-116) U/L Ammonia (11-32) umol/L Creatine Kinase (39-308) U/L Troponin I High Sens (<=76) pg/mL C-Reactive Protein (0.0-0.9) mg/dL Total Protein (6.4-8.2) g/dL Albumin (3.4-5.0) g/dL Globulin Albumin/Globulin Ratio Vitamin B12 (193-986) pg/mL Folate (8.6-58.9) ng/mL Free T4 (0.76-1.46) ng/dL TSH, Ultra Sensitive (0.36-3.74) uIU/mL Urine Color Dark yellow (YELLOW) Urine Appearance Cloudy (CLEAR) Urine pH 5.5 (5.0-9.0) Ur Specific [place] 1.020 (1.005-1.030) Urine Protein 100 H (NEGATIVE) Urine Glucose (UA) Negative (NEGATIVE) Urine Ketones Trace H (NEGATIVE) Urine Occult Blood Moderate H (NEGATIVE) Urine Nitrite Negative (NEGATIVE) Urine Bilirubin Small H (NEGATIVE) Urine Urobilinogen 1.0 (0.2-1.0) mg/dL Ur Leukocyte Esterase Negative (NEGATIVE) Urine RBC 5-10 H (0-5) /HPF Urine WBC 5-10 H (0-5/HPF) /HPF Ur Epithelial Cells Few (NOT SEEN) /HPF Urine Bacteria Many H (0-FEW/HPF) /HPF Fine Granular Casts Few H (NOT SEEN) /LPF Urine Opiates Screen Negative (NEGATIVE) Ur Oxycodone Screen Negative (NEGATIVE) Urine Methadone Screen Negative (NEGATIVE) Ur Barbiturates Screen Negative (NEGATIVE) U Tricyclic Antidepress Negative (NEGATIVE) Ur Phencyclidine Scrn Negative (NEGATIVE) Ur Amphetamine Screen Negative (NEGATIVE) U Methamphetamines Scrn Negative (NEGATIVE) Urine MDMA Screen Negative (NEGATIVE) U Benzodiazepines Scrn Negative (NEGATIVE) Urine Cocaine Screen Negative (NEGATIVE) U Marijuana (THC) Screen Negative (NEGATIVE) Ethyl Alcohol (0) mg/dL HIV-1 Antibody (NONREACTIVE) HIV-2 Antibody (NONREACTIVE) HIV P24 Antigen (NONREACTIVE) Influenza Type A RNA (NEGATIVE) RSV RNA (INAAT) (NEGATIVE) Influenza Type B RNA (NEGATIVE) SARS-CoV-2 RNA (ARGENIS) (NEGATIVE) 06/04/21 06/04/21 06/04/21 Range/Units 02:40 04:00 06:09 WBC (5.0-10.0) 10^3/uL RBC (4.6-6.2) 10^6/uL Hgb (14.0-18.0) g/dL Hct (40.0-54.0) % MCV (80-100) fL MCH (27.0-34.0) pg MCHC (33.0-35.0) g/dL Plt Count (150-450) 10^3/uL Neut % (Auto) (42.2-75.2) % Lymph % (Auto) (20.5-50.1) % [place] % (Auto) (2-8) % Eos % (Auto) (1.0-3.0) % Baso % (Auto) (0.0-1.0) % Add Manual Diff Neutrophils % (Manual) (42-75) % Band Neutrophils % % Lymphocytes % (Manual) (20-50) % Monocytes % (Manual) (2-8) % Vacuolated Monocytes Toxic Granulation Platelet Estimate Hypochromasia Poikilocytosis Anisocytosis Microcytosis Percent Retic (0.5-1.5) % PT (9.0-12.0) SEC INR (0.9-1.2) APTT (22.0-34.0) SEC Sodium (136-145) mmol/L Potassium (3.5-5.1) mmol/L Chloride (98-107) mmol/L Carbon Dioxide (21-32) mmol/L Anion Gap (7-13) mEq/L BUN (7-18) mg/dL Creatinine (0.70-1.30) mg/dL Est Cr Clr Drug Dosing Estimated GFR (MDRD) BUN/Creatinine Ratio (No establ ref range) Glucose (70-99) mg/dL POC Glucose 62 L 52 L (70-99) mg/dL Lactic Acid 3.6 H* (0.4-2.0) mmol/L Calcium (8.5-10.1) mg/dL Phosphorus (2.6-4.7) mg/dL Magnesium (1.8-2.4) mg/dL Iron (65-175) ug/dL TIBC (250-450) ug/dL % Saturation (20.0-50.0) % Total Bilirubin (0.2-1.0) mg/dL Direct Bilirubin (0.0-0.2) mg/dL Indirect Bilirubin AST (15-37) U/L ALT (16-63) U/L Alkaline Phosphatase (46-116) U/L Ammonia (11-32) umol/L Creatine Kinase (39-308) U/L Troponin I High Sens (<=76) pg/mL C-Reactive Protein (0.0-0.9) mg/dL Total Protein (6.4-8.2) g/dL Albumin (3.4-5.0) g/dL Globulin Albumin/Globulin Ratio Vitamin B12 (193-986) pg/mL Folate (8.6-58.9) ng/mL Free T4 (0.76-1.46) ng/dL TSH, Ultra Sensitive (0.36-3.74) uIU/mL Urine Color (YELLOW) Urine Appearance (CLEAR) Urine pH (5.0-9.0) Ur Specific [place] (1.005-1.030) Urine Protein (NEGATIVE) Urine Glucose (UA) (NEGATIVE) Urine Ketones (NEGATIVE) Urine Occult Blood (NEGATIVE) Urine Nitrite (NEGATIVE) Urine Bilirubin (NEGATIVE) Urine Urobilinogen (0.2-1.0) mg/dL Ur Leukocyte Esterase (NEGATIVE) Urine RBC (0-5) /HPF Urine WBC (0-5/HPF) /HPF Ur Epithelial Cells (NOT SEEN) /HPF Urine Bacteria (0-FEW/HPF) /HPF Fine Granular Casts (NOT SEEN) /LPF Urine Opiates Screen (NEGATIVE) Ur Oxycodone Screen (NEGATIVE) Urine Methadone Screen (NEGATIVE) Ur Barbiturates Screen (NEGATIVE) U Tricyclic Antidepress (NEGATIVE) Ur Phencyclidine Scrn (NEGATIVE) Ur Amphetamine Screen (NEGATIVE) U Methamphetamines Scrn (NEGATIVE) Urine MDMA Screen (NEGATIVE) U Benzodiazepines Scrn (NEGATIVE) Urine Cocaine Screen (NEGATIVE) U Marijuana (THC) Screen (NEGATIVE) Ethyl Alcohol (0) mg/dL HIV-1 Antibody (NONREACTIVE) HIV-2 Antibody (NONREACTIVE) HIV P24 Antigen (NONREACTIVE) Influenza Type A RNA (NEGATIVE) RSV RNA (INAAT) (NEGATIVE) Influenza Type B RNA (NEGATIVE) SARS-CoV-2 RNA (ARGENIS) (NEGATIVE) 06/04/21 06/04/21 06/04/21 Range/Units 06:50 06:50 06:50 WBC 5.6 (5.0-10.0) 10^3/uL RBC 3.45 L (4.6-6.2) 10^6/uL Hgb 8.6 L D (14.0-18.0) g/dL Hct 25.7 L (40.0-54.0) % MCV 74.5 L (80-100) fL MCH 24.9 L (27.0-34.0) pg MCHC 33.5 (33.0-35.0) g/dL Plt Count 79 L (150-450) 10^3/uL Neut % (Auto) 94.2 H (42.2-75.2) % Lymph % (Auto) 3.6 L (20.5-50.1) % [place] % (Auto) 2.0 (2-8) % Eos % (Auto) 0.0 L (1.0-3.0) % Baso % (Auto) 0.2 (0.0-1.0) % Add Manual Diff Neutrophils % (Manual) (42-75) % Band Neutrophils % % Lymphocytes % (Manual) (20-50) % Monocytes % (Manual) (2-8) % Vacuolated Monocytes Toxic Granulation Platelet Estimate Hypochromasia Poikilocytosis Anisocytosis Microcytosis Percent Retic (0.5-1.5) % PT (9.0-12.0) SEC INR (0.9-1.2) APTT (22.0-34.0) SEC Sodium 129 L (136-145) mmol/L Potassium 4.3 (3.5-5.1) mmol/L Chloride 98 (98-107) mmol/L Carbon Dioxide 19 L (21-32) mmol/L Anion Gap 16.3 H (7-13) mEq/L BUN 37 H (7-18) mg/dL Creatinine 1.68 H (0.70-1.30) mg/dL Est Cr Clr Drug Dosing 41.41 Estimated GFR (MDRD) 46 BUN/Creatinine Ratio (No establ ref range) Glucose 83 (70-99) mg/dL POC Glucose (70-99) mg/dL Lactic Acid 3.7 H* (0.4-2.0) mmol/L Calcium 6.0 L (8.5-10.1) mg/dL Phosphorus 3.8 (2.6-4.7) mg/dL Magnesium 1.3 L (1.8-2.4) mg/dL Iron (65-175) ug/dL TIBC (250-450) ug/dL % Saturation (20.0-50.0) % Total Bilirubin 0.8 (0.2-1.0) mg/dL Direct Bilirubin 0.5 H (0.0-0.2) mg/dL Indirect Bilirubin 0.3 AST 128 H (15-37) U/L ALT 94 H (16-63) U/L Alkaline Phosphatase 175 H (46-116) U/L Ammonia (11-32) umol/L Creatine Kinase (39-308) U/L Troponin I High Sens (<=76) pg/mL C-Reactive Protein (0.0-0.9) mg/dL Total Protein 4.3 L (6.4-8.2) g/dL Albumin 0.9 L (3.4-5.0) g/dL Globulin 3.4 Albumin/Globulin Ratio 0.26 Vitamin B12 4084 H (193-986) pg/mL Folate 3.9 L (8.6-58.9) ng/mL Free T4 1.44 (0.76-1.46) ng/dL TSH, Ultra Sensitive (0.36-3.74) uIU/mL Urine Color (YELLOW) Urine Appearance (CLEAR) Urine pH (5.0-9.0) Ur Specific [place] (1.005-1.030) Urine Protein (NEGATIVE) Urine Glucose (UA) (NEGATIVE) Urine Ketones (NEGATIVE) Urine Occult Blood (NEGATIVE) Urine Nitrite (NEGATIVE) Urine Bilirubin (NEGATIVE) Urine Urobilinogen (0.2-1.0) mg/dL Ur Leukocyte Esterase (NEGATIVE) Urine RBC (0-5) /HPF Urine WBC (0-5/HPF) /HPF Ur Epithelial Cells (NOT SEEN) /HPF Urine Bacteria (0-FEW/HPF) /HPF Fine Granular Casts (NOT SEEN) /LPF Urine Opiates Screen (NEGATIVE) Ur Oxycodone Screen (NEGATIVE) Urine Methadone Screen (NEGATIVE) Ur Barbiturates Screen (NEGATIVE) U Tricyclic Antidepress (NEGATIVE) Ur Phencyclidine Scrn (NEGATIVE) Ur Amphetamine Screen (NEGATIVE) U Methamphetamines Scrn (NEGATIVE) Urine MDMA Screen (NEGATIVE) U Benzodiazepines Scrn (NEGATIVE) Urine Cocaine Screen (NEGATIVE) U Marijuana (THC) Screen (NEGATIVE) Ethyl Alcohol (0) mg/dL HIV-1 Antibody (NONREACTIVE) HIV-2 Antibody (NONREACTIVE) HIV P24 Antigen (NONREACTIVE) Influenza Type A RNA (NEGATIVE) RSV RNA (INAAT) (NEGATIVE) Influenza Type B RNA (NEGATIVE) SARS-CoV-2 RNA (ARGENIS) (NEGATIVE) 06/04/21 06/04/21 06/04/21 Range/Units 06:50 08:21 10:47 WBC (5.0-10.0) 10^3/uL RBC (4.6-6.2) 10^6/uL Hgb (14.0-18.0) g/dL Hct (40.0-54.0) % MCV (80-100) fL MCH (27.0-34.0) pg MCHC (33.0-35.0) g/dL Plt Count (150-450) 10^3/uL Neut % (Auto) (42.2-75.2) % Lymph % (Auto) (20.5-50.1) % [place] % (Auto) (2-8) % Eos % (Auto) (1.0-3.0) % Baso % (Auto) (0.0-1.0) % Add Manual Diff Neutrophils % (Manual) (42-75) % Band Neutrophils % % Lymphocytes % (Manual) (20-50) % Monocytes % (Manual) (2-8) % Vacuolated Monocytes Toxic Granulation Platelet Estimate Hypochromasia Poikilocytosis Anisocytosis Microcytosis Percent Retic (0.5-1.5) % PT (9.0-12.0) SEC INR (0.9-1.2) APTT (22.0-34.0) SEC Sodium (136-145) mmol/L Potassium (3.5-5.1) mmol/L Chloride (98-107) mmol/L Carbon Dioxide (21-32) mmol/L Anion Gap (7-13) mEq/L BUN (7-18) mg/dL Creatinine (0.70-1.30) mg/dL Est Cr Clr Drug Dosing Estimated GFR (MDRD) BUN/Creatinine Ratio (No establ ref range) Glucose (70-99) mg/dL POC Glucose 50 L 102 H (70-99) mg/dL Lactic Acid (0.4-2.0) mmol/L Calcium (8.5-10.1) mg/dL Phosphorus (2.6-4.7) mg/dL Magnesium (1.8-2.4) mg/dL Iron 12 L (65-175) ug/dL TIBC 79 L (250-450) ug/dL % Saturation 15.2 L (20.0-50.0) % Total Bilirubin (0.2-1.0) mg/dL Direct Bilirubin (0.0-0.2) mg/dL Indirect Bilirubin AST (15-37) U/L ALT (16-63) U/L Alkaline Phosphatase (46-116) U/L Ammonia (11-32) umol/L Creatine Kinase (39-308) U/L Troponin I High Sens (<=76) pg/mL C-Reactive Protein (0.0-0.9) mg/dL Total Protein (6.4-8.2) g/dL Albumin (3.4-5.0) g/dL Globulin Albumin/Globulin Ratio Vitamin B12 (193-986) pg/mL Folate (8.6-58.9) ng/mL Free T4 (0.76-1.46) ng/dL TSH, Ultra Sensitive (0.36-3.74) uIU/mL Urine Color (YELLOW) Urine Appearance (CLEAR) Urine pH (5.0-9.0) Ur Specific [place] (1.005-1.030) Urine Protein (NEGATIVE) Urine Glucose (UA) (NEGATIVE) Urine Ketones (NEGATIVE) Urine Occult Blood (NEGATIVE) Urine Nitrite (NEGATIVE) Urine Bilirubin (NEGATIVE) Urine Urobilinogen (0.2-1.0) mg/dL Ur Leukocyte Esterase (NEGATIVE) Urine RBC (0-5) /HPF Urine WBC (0-5/HPF) /HPF Ur Epithelial Cells (NOT SEEN) /HPF Urine Bacteria (0-FEW/HPF) /HPF Fine Granular Casts (NOT SEEN) /LPF Urine Opiates Screen (NEGATIVE) Ur Oxycodone Screen (NEGATIVE) Urine Methadone Screen (NEGATIVE) Ur Barbiturates Screen (NEGATIVE) U Tricyclic Antidepress (NEGATIVE) Ur Phencyclidine Scrn (NEGATIVE) Ur Amphetamine Screen (NEGATIVE) U Methamphetamines Scrn (NEGATIVE) Urine MDMA Screen (NEGATIVE) U Benzodiazepines Scrn (NEGATIVE) Urine Cocaine Screen (NEGATIVE) U Marijuana (THC) Screen (NEGATIVE) Ethyl Alcohol (0) mg/dL HIV-1 Antibody (NONREACTIVE) HIV-2 Antibody (NONREACTIVE) HIV P24 Antigen (NONREACTIVE) Influenza Type A RNA (NEGATIVE) RSV RNA (INAAT) (NEGATIVE) Influenza Type B RNA (NEGATIVE) SARS-CoV-2 RNA (ARGENIS) (NEGATIVE) 06/04/21 06/04/21 Range/Units 11:52 13:44 WBC (5.0-10.0) 10^3/uL RBC (4.6-6.2) 10^6/uL Hgb (14.0-18.0) g/dL Hct (40.0-54.0) % MCV (80-100) fL MCH (27.0-34.0) pg MCHC (33.0-35.0) g/dL Plt Count (150-450) 10^3/uL Neut % (Auto) (42.2-75.2) % Lymph % (Auto) (20.5-50.1) % [place] % (Auto) (2-8) % Eos % (Auto) (1.0-3.0) % Baso % (Auto) (0.0-1.0) % Add Manual Diff Neutrophils % (Manual) (42-75) % Band Neutrophils % % Lymphocytes % (Manual) (20-50) % Monocytes % (Manual) (2-8) % Vacuolated Monocytes Toxic Granulation Platelet Estimate Hypochromasia Poikilocytosis Anisocytosis Microcytosis Percent Retic (0.5-1.5) % PT (9.0-12.0) SEC INR (0.9-1.2) APTT (22.0-34.0) SEC Sodium (136-145) mmol/L Potassium (3.5-5.1) mmol/L Chloride (98-107) mmol/L Carbon Dioxide (21-32) mmol/L Anion Gap (7-13) mEq/L BUN (7-18) mg/dL Creatinine (0.70-1.30) mg/dL Est Cr Clr Drug Dosing Estimated GFR (MDRD) BUN/Creatinine Ratio (No establ ref range) Glucose (70-99) mg/dL POC Glucose 80 72 (70-99) mg/dL Lactic Acid (0.4-2.0) mmol/L Calcium (8.5-10.1) mg/dL Phosphorus (2.6-4.7) mg/dL Magnesium (1.8-2.4) mg/dL Iron (65-175) ug/dL TIBC (250-450) ug/dL % Saturation (20.0-50.0) % Total Bilirubin (0.2-1.0) mg/dL Direct Bilirubin (0.0-0.2) mg/dL Indirect Bilirubin AST (15-37) U/L ALT (16-63) U/L Alkaline Phosphatase (46-116) U/L Ammonia (11-32) umol/L Creatine Kinase (39-308) U/L Troponin I High Sens (<=76) pg/mL C-Reactive Protein (0.0-0.9) mg/dL Total Protein (6.4-8.2) g/dL Albumin (3.4-5.0) g/dL Globulin Albumin/Globulin Ratio Vitamin B12 (193-986) pg/mL Folate (8.6-58.9) ng/mL Free T4 (0.76-1.46) ng/dL TSH, Ultra Sensitive (0.36-3.74) uIU/mL Urine Color (YELLOW) Urine Appearance (CLEAR) Urine pH (5.0-9.0) Ur Specific [place] (1.005-1.030) Urine Protein (NEGATIVE) Urine Glucose (UA) (NEGATIVE) Urine Ketones (NEGATIVE) Urine Occult Blood (NEGATIVE) Urine Nitrite (NEGATIVE) Urine Bilirubin (NEGATIVE) Urine Urobilinogen (0.2-1.0) mg/dL Ur Leukocyte Esterase (NEGATIVE) Urine RBC (0-5) /HPF Urine WBC (0-5/HPF) /HPF Ur Epithelial Cells (NOT SEEN) /HPF Urine Bacteria (0-FEW/HPF) /HPF Fine Granular Casts (NOT SEEN) /LPF Urine Opiates Screen (NEGATIVE) Ur Oxycodone Screen (NEGATIVE) Urine Methadone Screen (NEGATIVE) Ur Barbiturates Screen (NEGATIVE) U Tricyclic Antidepress (NEGATIVE) Ur Phencyclidine Scrn (NEGATIVE) Ur Amphetamine Screen (NEGATIVE) U Methamphetamines Scrn (NEGATIVE) Urine MDMA Screen (NEGATIVE) U Benzodiazepines Scrn (NEGATIVE) Urine Cocaine Screen (NEGATIVE) U Marijuana (THC) Screen (NEGATIVE) Ethyl Alcohol (0) mg/dL HIV-1 Antibody (NONREACTIVE) HIV-2 Antibody (NONREACTIVE) HIV P24 Antigen (NONREACTIVE) Influenza Type A RNA (NEGATIVE) RSV RNA (INAAT) (NEGATIVE) Influenza Type B RNA (NEGATIVE) SARS-CoV-2 RNA (ARGENIS) (NEGATIVE) Lane Results Last 24 Hours: Microbiology 06/03/21 16:55 Aerobic Blood Culture - Preliminary Blood - Arm, Left Anaerobic Blood Culture - Preliminary 06/03/21 17:01 Aerobic Blood Culture - Preliminary Blood - Arm, Right Anaerobic Blood Culture - Preliminary Med Orders - Current: Current Medications Acetaminophen (Acetaminophen 325 Mg Tab) 650 mg PO Q4H PRN PRN Reason: Pain (Mild 1-3)/fever Hydrocodone Bitart/Acetaminophen (Acetaminophen/Hydrocodone 325-10 Mg Tab) 1 tab PO Q4H PRN PRN Reason: Pain (moderate 4-6) Last Admin: 06/04/21 14:09 Dose: 1 tab Documented by: Dextrose/Water (50% Dextrose In Water 50 Ml Syringe) 50 ml IVPUSH ASDIRECTED PRN PRN Reason: Hypoglycemia BS<70 Last Admin: 06/04/21 08:33 Dose: 50 ml Documented by: Folic Acid (Folic Acid 1 Mg Tab) 1 mg PO DAILY [facility] Heparin Sodium (Porcine) (Heparin Sodium 5,000 Units/Ml Vial) 5,000 units SUBCUT Q8HR [facility] Last Admin: 06/04/21 14:11 Dose: 5,000 units Documented by: Cefepime HCl 1 gm/ Sodium (Chloride) 50 mls @ 100 mls/hr IV Q8H [facility] Last Infusion: 06/04/21 12:39 Dose: Infused Documented by: Dextrose/Sodium Chloride (Dextrose 5%-Normal Saline) 1,000 mls @ 150 mls/hr IV ASDIRECTED [facility] Last Admin: 06/04/21 11:19 Dose: 150 mls/hr Documented by: Metronidazole 500 mg/ Premix 100 mls @ 100 mls/hr IV Q8H [facility] Last Admin: 06/04/21 12:38 Dose: 100 mls/hr Documented by: Multivitamins/Minerals (Multivitamins With Iron/Calcium/Folic Acid/Minerals Tab) 1 tab PO DAILY [facility] Ondansetron HCl (Ondansetron 4 Mg Tab.Dis) 4 mg PO Q4H PRN PRN Reason: nausea, able to take PO Ondansetron HCl (Ondansetron 4 Mg/2 Ml Sdv) 4 mg IVPUSH Q4H PRN PRN Reason: Nausea/Vomiting Polysaccharide Iron Complex (Iron Polysaccharides Complex 150 Mg Cap) 150 mg PO DAILY [facility] Sodium Chloride (Sodium Chloride 0.9% 10 Ml Syringe) 10 ml FLUSH ASDIRECTED PRN PRN Reason: Keep Vein Open Last Admin: 06/04/21 12:38 Dose: 10 ml Documented by: Thiamine HCl (Thiamine 100 Mg Tab) 100 mg PO DAILY [facility] Discontinued Medications Albuterol/Ipratropium (Albuterol/Ipratropium 3.0-0.5 Mg/3 Ml Neb Soln) 3 ml NEB ONETIME ONE Stop: 06/03/21 18:47 Last Admin: 06/03/21 18:53 Dose: 3 ml Documented by: Albuterol/Ipratropium (Albuterol/Ipratropium 3.0-0.5 Mg/3 Ml Neb Soln) Confirm Administered Dose 3 ml .ROUTE .STK-MED ONE Stop: 06/03/21 18:54 Last Admin: 06/03/21 19:24 Dose: Not Given Documented by: Dextrose/Water (50% Dextrose In Water 50 Ml Syringe) Confirm Administered Dose 50 ml .ROUTE .STK-MED ONE Stop: 06/03/21 19:50 Last Admin: 06/03/21 19:51 Dose: 50 ml Documented by: Dextrose/Water (50% Dextrose In Water 50 Ml Syringe) 50 ml IVPUSH ONETIME ONE Stop: 06/03/21 19:54 Last Admin: 06/04/21 01:14 Dose: Not Given Documented by: Dextrose/Water (50% Dextrose In Water 50 Ml Syringe) 25 ml IVPUSH ASDIRECTED PRN PRN Reason: Hypoglycemia BS<70 Last Admin: 06/04/21 06:12 Dose: 25 ml Documented by: Sodium Chloride (Normal Saline) 1,000 mls @ 100 mls/hr IV ASDIRECTED [facility] Last Admin: 06/03/21 17:52 Dose: 100 mls/hr Documented by: Cefepime HCl 1 gm/ Sodium (Chloride) 50 mls @ 100 mls/hr IV ONETIME ONE Stop: 06/03/21 18:36 Last Admin: 06/03/21 18:48 Dose: 100 mls/hr Documented by: Metronidazole 500 mg/ Premix 100 mls @ 100 mls/hr IV ONETIME ONE Stop: 06/03/21 20:16 Last Admin: 06/03/21 21:10 Dose: 100 mls/hr Documented by: - Exam General: Alert, Lethargic (but improved, ) HEENT: Pupils Equal, EOMI Neck: Supple Lungs: Clear to Auscultation, Normal Respiratory Effort Cardiovascular: Regular Rate, Regular Rhythm GI/Abdominal Exam: Normal Bowel Sounds, Soft, Non-Tender Extremities: No Pedal Edema Psy/Mental Status: Alert. No: Agitated - Patient Data Lab Results Last 24 hrs: Laboratory Results - last 24 hr 06/03/21 06/03/21 06/03/21 Range/Units 16:55 17:01 17:01 WBC 19.2 H (5.0-10.0) 10^3/uL RBC 4.34 L (4.6-6.2) 10^6/uL Hgb 10.7 L (14.0-18.0) g/dL Hct 31.6 L (40.0-54.0) % MCV 72.8 L (80-100) fL MCH 24.7 L (27.0-34.0) pg MCHC 33.9 (33.0-35.0) g/dL Plt Count 131 L (150-450) 10^3/uL Neut % (Auto) 95.7 H (42.2-75.2) % Lymph % (Auto) 1.9 L (20.5-50.1) % [place] % (Auto) 2.3 (2-8) % Eos % (Auto) 0.0 L (1.0-3.0) % Baso % (Auto) 0.1 (0.0-1.0) % Add Manual Diff Yes Neutrophils % (Manual) 38 L (42-75) % Band Neutrophils % 60 % Lymphocytes % (Manual) 1 L (20-50) % Monocytes % (Manual) 1 L (2-8) % Vacuolated Monocytes Few Toxic Granulation Few Platelet Estimate Decreased Hypochromasia 1+ slight Poikilocytosis 2+ moderate Anisocytosis 1+ slight Microcytosis 2+ moderate Percent Retic (0.5-1.5) % PT 12.3 H (9.0-12.0) SEC INR 1.2 (0.9-1.2) APTT 42.3 H (22.0-34.0) SEC Sodium 130 L (136-145) mmol/L Potassium 4.8 (3.5-5.1) mmol/L Chloride 96 L (98-107) mmol/L Carbon Dioxide 23 (21-32) mmol/L Anion Gap 15.8 H (7-13) mEq/L BUN 35 H (7-18) mg/dL Creatinine 1.88 H (0.70-1.30) mg/dL Est Cr Clr Drug Dosing TNP Estimated GFR (MDRD) 41 BUN/Creatinine Ratio 18.6 (No establ ref range) Glucose 61 L (70-99) mg/dL POC Glucose (70-99) mg/dL Lactic Acid (0.4-2.0) mmol/L Calcium 6.5 L (8.5-10.1) mg/dL Phosphorus (2.6-4.7) mg/dL Magnesium 1.8 (1.8-2.4) mg/dL Iron (65-175) ug/dL TIBC (250-450) ug/dL % Saturation (20.0-50.0) % Total Bilirubin 0.6 (0.2-1.0) mg/dL Direct Bilirubin (0.0-0.2) mg/dL Indirect Bilirubin AST 170 H (15-37) U/L ALT 131 H (16-63) U/L Alkaline Phosphatase 283 H (46-116) U/L Ammonia (11-32) umol/L Creatine Kinase 359 H (39-308) U/L Troponin I High Sens 27 (<=76) pg/mL C-Reactive Protein 18.7 H (0.0-0.9) mg/dL Total Protein 6.0 L (6.4-8.2) g/dL Albumin 1.4 L (3.4-5.0) g/dL Globulin 4.6 Albumin/Globulin Ratio 0.30 Vitamin B12 (193-986) pg/mL Folate (8.6-58.9) ng/mL Free T4 (0.76-1.46) ng/dL TSH, Ultra Sensitive 4.12 H (0.36-3.74) uIU/mL Urine Color (YELLOW) Urine Appearance (CLEAR) Urine pH (5.0-9.0) Ur Specific [place] (1.005-1.030) Urine Protein (NEGATIVE) Urine Glucose (UA) (NEGATIVE) Urine Ketones (NEGATIVE) Urine Occult Blood (NEGATIVE) Urine Nitrite (NEGATIVE) Urine Bilirubin (NEGATIVE) Urine Urobilinogen (0.2-1.0) mg/dL Ur Leukocyte Esterase (NEGATIVE) Urine RBC (0-5) /HPF Urine WBC (0-5/HPF) /HPF Ur Epithelial Cells (NOT SEEN) /HPF Urine Bacteria (0-FEW/HPF) /HPF Fine Granular Casts (NOT SEEN) /LPF Urine Opiates Screen (NEGATIVE) Ur Oxycodone Screen (NEGATIVE) Urine Methadone Screen (NEGATIVE) Ur Barbiturates Screen (NEGATIVE) U Tricyclic Antidepress (NEGATIVE) Ur Phencyclidine Scrn (NEGATIVE) Ur Amphetamine Screen (NEGATIVE) U Methamphetamines Scrn (NEGATIVE) Urine MDMA Screen (NEGATIVE) U Benzodiazepines Scrn (NEGATIVE) Urine Cocaine Screen (NEGATIVE) U Marijuana (THC) Screen (NEGATIVE) Ethyl Alcohol < 3 (0) mg/dL HIV-1 Antibody (NONREACTIVE) HIV-2 Antibody (NONREACTIVE) HIV P24 Antigen (NONREACTIVE) Influenza Type A RNA (NEGATIVE) RSV RNA (INAAT) (NEGATIVE) Influenza Type B RNA (NEGATIVE) SARS-CoV-2 RNA (ARGENIS) (NEGATIVE) 06/03/21 06/03/21 06/03/21 Range/Units 17:01 17:01 17:01 WBC (5.0-10.0) 10^3/uL RBC (4.6-6.2) 10^6/uL Hgb (14.0-18.0) g/dL Hct (40.0-54.0) % MCV (80-100) fL MCH (27.0-34.0) pg MCHC (33.0-35.0) g/dL Plt Count (150-450) 10^3/uL Neut % (Auto) (42.2-75.2) % Lymph % (Auto) (20.5-50.1) % [place] % (Auto) (2-8) % Eos % (Auto) (1.0-3.0) % Baso % (Auto) (0.0-1.0) % Add Manual Diff Neutrophils % (Manual) (42-75) % Band Neutrophils % % Lymphocytes % (Manual) (20-50) % Monocytes % (Manual) (2-8) % Vacuolated Monocytes Toxic Granulation Platelet Estimate Hypochromasia Poikilocytosis Anisocytosis Microcytosis Percent Retic 2 H (0.5-1.5) % PT (9.0-12.0) SEC INR (0.9-1.2) APTT (22.0-34.0) SEC Sodium (136-145) mmol/L Potassium (3.5-5.1) mmol/L Chloride (98-107) mmol/L Carbon Dioxide (21-32) mmol/L Anion Gap (7-13) mEq/L BUN (7-18) mg/dL Creatinine (0.70-1.30) mg/dL Est Cr Clr Drug Dosing Estimated GFR (MDRD) BUN/Creatinine Ratio (No establ ref range) Glucose (70-99) mg/dL POC Glucose (70-99) mg/dL Lactic Acid 4.2 H* (0.4-2.0) mmol/L Calcium (8.5-10.1) mg/dL Phosphorus (2.6-4.7) mg/dL Magnesium (1.8-2.4) mg/dL Iron (65-175) ug/dL TIBC (250-450) ug/dL % Saturation (20.0-50.0) % Total Bilirubin (0.2-1.0) mg/dL Direct Bilirubin (0.0-0.2) mg/dL Indirect Bilirubin AST (15-37) U/L ALT (16-63) U/L Alkaline Phosphatase (46-116) U/L Ammonia (11-32) umol/L Creatine Kinase (39-308) U/L Troponin I High Sens (<=76) pg/mL C-Reactive Protein (0.0-0.9) mg/dL Total Protein (6.4-8.2) g/dL Albumin (3.4-5.0) g/dL Globulin Albumin/Globulin Ratio Vitamin B12 (193-986) pg/mL Folate (8.6-58.9) ng/mL Free T4 (0.76-1.46) ng/dL TSH, Ultra Sensitive (0.36-3.74) uIU/mL Urine Color (YELLOW) Urine Appearance (CLEAR) Urine pH (5.0-9.0) Ur Specific [place] (1.005-1.030) Urine Protein (NEGATIVE) Urine Glucose (UA) (NEGATIVE) Urine Ketones (NEGATIVE) Urine Occult Blood (NEGATIVE) Urine Nitrite (NEGATIVE) Urine Bilirubin (NEGATIVE) Urine Urobilinogen (0.2-1.0) mg/dL Ur Leukocyte Esterase (NEGATIVE) Urine RBC (0-5) /HPF Urine WBC (0-5/HPF) /HPF Ur Epithelial Cells (NOT SEEN) /HPF Urine Bacteria (0-FEW/HPF) /HPF Fine Granular Casts (NOT SEEN) /LPF Urine Opiates Screen (NEGATIVE) Ur Oxycodone Screen (NEGATIVE) Urine Methadone Screen (NEGATIVE) Ur Barbiturates Screen (NEGATIVE) U Tricyclic Antidepress (NEGATIVE) Ur Phencyclidine Scrn (NEGATIVE) Ur Amphetamine Screen (NEGATIVE) U Methamphetamines Scrn (NEGATIVE) Urine MDMA Screen (NEGATIVE) U Benzodiazepines Scrn (NEGATIVE) Urine Cocaine Screen (NEGATIVE) U Marijuana (THC) Screen (NEGATIVE) Ethyl Alcohol (0) mg/dL HIV-1 Antibody Non-reactive (NONREACTIVE) HIV-2 Antibody Non-reactive (NONREACTIVE) HIV P24 Antigen Non-reactive (NONREACTIVE) Influenza Type A RNA (NEGATIVE) RSV RNA (INAAT) (NEGATIVE) Influenza Type B RNA (NEGATIVE) SARS-CoV-2 RNA (ARGENIS) (NEGATIVE) 06/03/21 06/03/21 06/03/21 Range/Units 17:17 19:40 19:48 WBC (5.0-10.0) 10^3/uL RBC (4.6-6.2) 10^6/uL Hgb (14.0-18.0) g/dL Hct (40.0-54.0) % MCV (80-100) fL MCH (27.0-34.0) pg MCHC (33.0-35.0) g/dL Plt Count (150-450) 10^3/uL Neut % (Auto) (42.2-75.2) % Lymph % (Auto) (20.5-50.1) % [place] % (Auto) (2-8) % Eos % (Auto) (1.0-3.0) % Baso % (Auto) (0.0-1.0) % Add Manual Diff Neutrophils % (Manual) (42-75) % Band Neutrophils % % Lymphocytes % (Manual) (20-50) % Monocytes % (Manual) (2-8) % Vacuolated Monocytes Toxic Granulation Platelet Estimate Hypochromasia Poikilocytosis Anisocytosis Microcytosis Percent Retic (0.5-1.5) % PT (9.0-12.0) SEC INR (0.9-1.2) APTT (22.0-34.0) SEC Sodium (136-145) mmol/L Potassium (3.5-5.1) mmol/L Chloride (98-107) mmol/L Carbon Dioxide (21-32) mmol/L Anion Gap (7-13) mEq/L BUN (7-18) mg/dL Creatinine (0.70-1.30) mg/dL Est Cr Clr Drug Dosing Estimated GFR (MDRD) BUN/Creatinine Ratio (No establ ref range) Glucose (70-99) mg/dL POC Glucose 37 L* (70-99) mg/dL Lactic Acid (0.4-2.0) mmol/L Calcium (8.5-10.1) mg/dL Phosphorus (2.6-4.7) mg/dL Magnesium (1.8-2.4) mg/dL Iron (65-175) ug/dL TIBC (250-450) ug/dL % Saturation (20.0-50.0) % Total Bilirubin (0.2-1.0) mg/dL Direct Bilirubin (0.0-0.2) mg/dL Indirect Bilirubin AST (15-37) U/L ALT (16-63) U/L Alkaline Phosphatase (46-116) U/L Ammonia 18 (11-32) umol/L Creatine Kinase (39-308) U/L Troponin I High Sens (<=76) pg/mL C-Reactive Protein (0.0-0.9) mg/dL Total Protein (6.4-8.2) g/dL Albumin (3.4-5.0) g/dL Globulin Albumin/Globulin Ratio Vitamin B12 (193-986) pg/mL Folate (8.6-58.9) ng/mL Free T4 (0.76-1.46) ng/dL TSH, Ultra Sensitive (0.36-3.74) uIU/mL Urine Color (YELLOW) Urine Appearance (CLEAR) Urine pH (5.0-9.0) Ur Specific [place] (1.005-1.030) Urine Protein (NEGATIVE) Urine Glucose (UA) (NEGATIVE) Urine Ketones (NEGATIVE) Urine Occult Blood (NEGATIVE) Urine Nitrite (NEGATIVE) Urine Bilirubin (NEGATIVE) Urine Urobilinogen (0.2-1.0) mg/dL Ur Leukocyte Esterase (NEGATIVE) Urine RBC (0-5) /HPF Urine WBC (0-5/HPF) /HPF Ur Epithelial Cells (NOT SEEN) /HPF Urine Bacteria (0-FEW/HPF) /HPF Fine Granular Casts (NOT SEEN) /LPF Urine Opiates Screen (NEGATIVE) Ur Oxycodone Screen (NEGATIVE) Urine Methadone Screen (NEGATIVE) Ur Barbiturates Screen (NEGATIVE) U Tricyclic Antidepress (NEGATIVE) Ur Phencyclidine Scrn (NEGATIVE) Ur Amphetamine Screen (NEGATIVE) U Methamphetamines Scrn (NEGATIVE) Urine MDMA Screen (NEGATIVE) U Benzodiazepines Scrn (NEGATIVE) Urine Cocaine Screen (NEGATIVE) U Marijuana (THC) Screen (NEGATIVE) Ethyl Alcohol (0) mg/dL HIV-1 Antibody (NONREACTIVE) HIV-2 Antibody (NONREACTIVE) HIV P24 Antigen (NONREACTIVE) Influenza Type A RNA Negative (NEGATIVE) RSV RNA (INAAT) Negative (NEGATIVE) Influenza Type B RNA Negative (NEGATIVE) SARS-CoV-2 RNA (ARGEINS) Negative (NEGATIVE) 06/03/21 06/03/21 06/03/21 Range/Units 20:43 21:15 22:57 WBC (5.0-10.0) 10^3/uL RBC (4.6-6.2) 10^6/uL Hgb (14.0-18.0) g/dL Hct (40.0-54.0) % MCV (80-100) fL MCH (27.0-34.0) pg MCHC (33.0-35.0) g/dL Plt Count (150-450) 10^3/uL Neut % (Auto) (42.2-75.2) % Lymph % (Auto) (20.5-50.1) % [place] % (Auto) (2-8) % Eos % (Auto) (1.0-3.0) % Baso % (Auto) (0.0-1.0) % Add Manual Diff Neutrophils % (Manual) (42-75) % Band Neutrophils % % Lymphocytes % (Manual) (20-50) % Monocytes % (Manual) (2-8) % Vacuolated Monocytes Toxic Granulation Platelet Estimate Hypochromasia Poikilocytosis Anisocytosis Microcytosis Percent Retic (0.5-1.5) % PT (9.0-12.0) SEC INR (0.9-1.2) APTT (22.0-34.0) SEC Sodium (136-145) mmol/L Potassium (3.5-5.1) mmol/L Chloride (98-107) mmol/L Carbon Dioxide (21-32) mmol/L Anion Gap (7-13) mEq/L BUN (7-18) mg/dL Creatinine (0.70-1.30) mg/dL Est Cr Clr Drug Dosing Estimated GFR (MDRD) BUN/Creatinine Ratio (No establ ref range) Glucose (70-99) mg/dL POC Glucose 90 60 L (70-99) mg/dL Lactic Acid 3.1 H* (0.4-2.0) mmol/L Calcium (8.5-10.1) mg/dL Phosphorus (2.6-4.7) mg/dL Magnesium (1.8-2.4) mg/dL Iron (65-175) ug/dL TIBC (250-450) ug/dL % Saturation (20.0-50.0) % Total Bilirubin (0.2-1.0) mg/dL Direct Bilirubin (0.0-0.2) mg/dL Indirect Bilirubin AST (15-37) U/L ALT (16-63) U/L Alkaline Phosphatase (46-116) U/L Ammonia (11-32) umol/L Creatine Kinase (39-308) U/L Troponin I High Sens (<=76) pg/mL C-Reactive Protein (0.0-0.9) mg/dL Total Protein (6.4-8.2) g/dL Albumin (3.4-5.0) g/dL Globulin Albumin/Globulin Ratio Vitamin B12 (193-986) pg/mL Folate (8.6-58.9) ng/mL Free T4 (0.76-1.46) ng/dL TSH, Ultra Sensitive (0.36-3.74) uIU/mL Urine Color (YELLOW) Urine Appearance (CLEAR) Urine pH (5.0-9.0) Ur Specific [place] (1.005-1.030) Urine Protein (NEGATIVE) Urine Glucose (UA) (NEGATIVE) Urine Ketones (NEGATIVE) Urine Occult Blood (NEGATIVE) Urine Nitrite (NEGATIVE) Urine Bilirubin (NEGATIVE) Urine Urobilinogen (0.2-1.0) mg/dL Ur Leukocyte Esterase (NEGATIVE) Urine RBC (0-5) /HPF Urine WBC (0-5/HPF) /HPF Ur Epithelial Cells (NOT SEEN) /HPF Urine Bacteria (0-FEW/HPF) /HPF Fine Granular Casts (NOT SEEN) /LPF Urine Opiates Screen (NEGATIVE) Ur Oxycodone Screen (NEGATIVE) Urine Methadone Screen (NEGATIVE) Ur Barbiturates Screen (NEGATIVE) U Tricyclic Antidepress (NEGATIVE) Ur Phencyclidine Scrn (NEGATIVE) Ur Amphetamine Screen (NEGATIVE) U Methamphetamines Scrn (NEGATIVE) Urine MDMA Screen (NEGATIVE) U Benzodiazepines Scrn (NEGATIVE) Urine Cocaine Screen (NEGATIVE) U Marijuana (THC) Screen (NEGATIVE) Ethyl Alcohol (0) mg/dL HIV-1 Antibody (NONREACTIVE) HIV-2 Antibody (NONREACTIVE) HIV P24 Antigen (NONREACTIVE) Influenza Type A RNA (NEGATIVE) RSV RNA (INAAT) (NEGATIVE) Influenza Type B RNA (NEGATIVE) SARS-CoV-2 RNA (ARGENIS) (NEGATIVE) 06/03/21 06/03/21 06/04/21 Range/Units 23:00 23:00 01:35 WBC (5.0-10.0) 10^3/uL RBC (4.6-6.2) 10^6/uL Hgb (14.0-18.0) g/dL Hct (40.0-54.0) % MCV (80-100) fL MCH (27.0-34.0) pg MCHC (33.0-35.0) g/dL Plt Count (150-450) 10^3/uL Neut % (Auto) (42.2-75.2) % Lymph % (Auto) (20.5-50.1) % [place] % (Auto) (2-8) % Eos % (Auto) (1.0-3.0) % Baso % (Auto) (0.0-1.0) % Add Manual Diff Neutrophils % (Manual) (42-75) % Band Neutrophils % % Lymphocytes % (Manual) (20-50) % Monocytes % (Manual) (2-8) % Vacuolated Monocytes Toxic Granulation Platelet Estimate Hypochromasia Poikilocytosis Anisocytosis Microcytosis Percent Retic (0.5-1.5) % PT (9.0-12.0) SEC INR (0.9-1.2) APTT (22.0-34.0) SEC Sodium (136-145) mmol/L Potassium (3.5-5.1) mmol/L Chloride (98-107) mmol/L Carbon Dioxide (21-32) mmol/L Anion Gap (7-13) mEq/L BUN (7-18) mg/dL Creatinine (0.70-1.30) mg/dL Est Cr Clr Drug Dosing Estimated GFR (MDRD) BUN/Creatinine Ratio (No establ ref range) Glucose (70-99) mg/dL POC Glucose 69 L (70-99) mg/dL Lactic Acid (0.4-2.0) mmol/L Calcium (8.5-10.1) mg/dL Phosphorus (2.6-4.7) mg/dL Magnesium (1.8-2.4) mg/dL Iron (65-175) ug/dL TIBC (250-450) ug/dL % Saturation (20.0-50.0) % Total Bilirubin (0.2-1.0) mg/dL Direct Bilirubin (0.0-0.2) mg/dL Indirect Bilirubin AST (15-37) U/L ALT (16-63) U/L Alkaline Phosphatase (46-116) U/L Ammonia (11-32) umol/L Creatine Kinase (39-308) U/L Troponin I High Sens (<=76) pg/mL C-Reactive Protein (0.0-0.9) mg/dL Total Protein (6.4-8.2) g/dL Albumin (3.4-5.0) g/dL Globulin Albumin/Globulin Ratio Vitamin B12 (193-986) pg/mL Folate (8.6-58.9) ng/mL Free T4 (0.76-1.46) ng/dL TSH, Ultra Sensitive (0.36-3.74) uIU/mL Urine Color Dark yellow (YELLOW) Urine Appearance Cloudy (CLEAR) Urine pH 5.5 (5.0-9.0) Ur Specific [place] 1.020 (1.005-1.030) Urine Protein 100 H (NEGATIVE) Urine Glucose (UA) Negative (NEGATIVE) Urine Ketones Trace H (NEGATIVE) Urine Occult Blood Moderate H (NEGATIVE) Urine Nitrite Negative (NEGATIVE) Urine Bilirubin Small H (NEGATIVE) Urine Urobilinogen 1.0 (0.2-1.0) mg/dL Ur Leukocyte Esterase Negative (NEGATIVE) Urine RBC 5-10 H (0-5) /HPF Urine WBC 5-10 H (0-5/HPF) /HPF Ur Epithelial Cells Few (NOT SEEN) /HPF Urine Bacteria Many H (0-FEW/HPF) /HPF Fine Granular Casts Few H (NOT SEEN) /LPF Urine Opiates Screen Negative (NEGATIVE) Ur Oxycodone Screen Negative (NEGATIVE) Urine Methadone Screen Negative (NEGATIVE) Ur Barbiturates Screen Negative (NEGATIVE) U Tricyclic Antidepress Negative (NEGATIVE) Ur Phencyclidine Scrn Negative (NEGATIVE) Ur Amphetamine Screen Negative (NEGATIVE) U Methamphetamines Scrn Negative (NEGATIVE) Urine MDMA Screen Negative (NEGATIVE) U Benzodiazepines Scrn Negative (NEGATIVE) Urine Cocaine Screen Negative (NEGATIVE) U Marijuana (THC) Screen Negative (NEGATIVE) Ethyl Alcohol (0) mg/dL HIV-1 Antibody (NONREACTIVE) HIV-2 Antibody (NONREACTIVE) HIV P24 Antigen (NONREACTIVE) Influenza Type A RNA (NEGATIVE) RSV RNA (INAAT) (NEGATIVE) Influenza Type B RNA (NEGATIVE) SARS-CoV-2 RNA (ARGENIS) (NEGATIVE) 06/04/21 06/04/21 06/04/21 Range/Units 02:40 04:00 06:09 WBC (5.0-10.0) 10^3/uL RBC (4.6-6.2) 10^6/uL Hgb (14.0-18.0) g/dL Hct (40.0-54.0) % MCV (80-100) fL MCH (27.0-34.0) pg MCHC (33.0-35.0) g/dL Plt Count (150-450) 10^3/uL Neut % (Auto) (42.2-75.2) % Lymph % (Auto) (20.5-50.1) % [place] % (Auto) (2-8) % Eos % (Auto) (1.0-3.0) % Baso % (Auto) (0.0-1.0) % Add Manual Diff Neutrophils % (Manual) (42-75) % Band Neutrophils % % Lymphocytes % (Manual) (20-50) % Monocytes % (Manual) (2-8) % Vacuolated Monocytes Toxic Granulation Platelet Estimate Hypochromasia Poikilocytosis Anisocytosis Microcytosis Percent Retic (0.5-1.5) % PT (9.0-12.0) SEC INR (0.9-1.2) APTT (22.0-34.0) SEC Sodium (136-145) mmol/L Potassium (3.5-5.1) mmol/L Chloride (98-107) mmol/L Carbon Dioxide (21-32) mmol/L Anion Gap (7-13) mEq/L BUN (7-18) mg/dL Creatinine (0.70-1.30) mg/dL Est Cr Clr Drug Dosing Estimated GFR (MDRD) BUN/Creatinine Ratio (No establ ref range) Glucose (70-99) mg/dL POC Glucose 62 L 52 L (70-99) mg/dL Lactic Acid 3.6 H* (0.4-2.0) mmol/L Calcium (8.5-10.1) mg/dL Phosphorus (2.6-4.7) mg/dL Magnesium (1.8-2.4) mg/dL Iron (65-175) ug/dL TIBC (250-450) ug/dL % Saturation (20.0-50.0) % Total Bilirubin (0.2-1.0) mg/dL Direct Bilirubin (0.0-0.2) mg/dL Indirect Bilirubin AST (15-37) U/L ALT (16-63) U/L Alkaline Phosphatase (46-116) U/L Ammonia (11-32) umol/L Creatine Kinase (39-308) U/L Troponin I High Sens (<=76) pg/mL C-Reactive Protein (0.0-0.9) mg/dL Total Protein (6.4-8.2) g/dL Albumin (3.4-5.0) g/dL Globulin Albumin/Globulin Ratio Vitamin B12 (193-986) pg/mL Folate (8.6-58.9) ng/mL Free T4 (0.76-1.46) ng/dL TSH, Ultra Sensitive (0.36-3.74) uIU/mL Urine Color (YELLOW) Urine Appearance (CLEAR) Urine pH (5.0-9.0) Ur Specific [place] (1.005-1.030) Urine Protein (NEGATIVE) Urine Glucose (UA) (NEGATIVE) Urine Ketones (NEGATIVE) Urine Occult Blood (NEGATIVE) Urine Nitrite (NEGATIVE) Urine Bilirubin (NEGATIVE) Urine Urobilinogen (0.2-1.0) mg/dL Ur Leukocyte Esterase (NEGATIVE) Urine RBC (0-5) /HPF Urine WBC (0-5/HPF) /HPF Ur Epithelial Cells (NOT SEEN) /HPF Urine Bacteria (0-FEW/HPF) /HPF Fine Granular Casts (NOT SEEN) /LPF Urine Opiates Screen (NEGATIVE) Ur Oxycodone Screen (NEGATIVE) Urine Methadone Screen (NEGATIVE) Ur Barbiturates Screen (NEGATIVE) U Tricyclic Antidepress (NEGATIVE) Ur Phencyclidine Scrn (NEGATIVE) Ur Amphetamine Screen (NEGATIVE) U Methamphetamines Scrn (NEGATIVE) Urine MDMA Screen (NEGATIVE) U Benzodiazepines Scrn (NEGATIVE) Urine Cocaine Screen (NEGATIVE) U Marijuana (THC) Screen (NEGATIVE) Ethyl Alcohol (0) mg/dL HIV-1 Antibody (NONREACTIVE) HIV-2 Antibody (NONREACTIVE) HIV P24 Antigen (NONREACTIVE) Influenza Type A RNA (NEGATIVE) RSV RNA (INAAT) (NEGATIVE) Influenza Type B RNA (NEGATIVE) SARS-CoV-2 RNA (ARGENIS) (NEGATIVE) 06/04/21 06/04/21 06/04/21 Range/Units 06:50 06:50 06:50 WBC 5.6 (5.0-10.0) 10^3/uL RBC 3.45 L (4.6-6.2) 10^6/uL Hgb 8.6 L D (14.0-18.0) g/dL Hct 25.7 L (40.0-54.0) % MCV 74.5 L (80-100) fL MCH 24.9 L (27.0-34.0) pg MCHC 33.5 (33.0-35.0) g/dL Plt Count 79 L (150-450) 10^3/uL Neut % (Auto) 94.2 H (42.2-75.2) % Lymph % (Auto) 3.6 L (20.5-50.1) % [place] % (Auto) 2.0 (2-8) % Eos % (Auto) 0.0 L (1.0-3.0) % Baso % (Auto) 0.2 (0.0-1.0) % Add Manual Diff Neutrophils % (Manual) (42-75) % Band Neutrophils % % Lymphocytes % (Manual) (20-50) % Monocytes % (Manual) (2-8) % Vacuolated Monocytes Toxic Granulation Platelet Estimate Hypochromasia Poikilocytosis Anisocytosis Microcytosis Percent Retic (0.5-1.5) % PT (9.0-12.0) SEC INR (0.9-1.2) APTT (22.0-34.0) SEC Sodium 129 L (136-145) mmol/L Potassium 4.3 (3.5-5.1) mmol/L Chloride 98 (98-107) mmol/L Carbon Dioxide 19 L (21-32) mmol/L Anion Gap 16.3 H (7-13) mEq/L BUN 37 H (7-18) mg/dL Creatinine 1.68 H (0.70-1.30) mg/dL Est Cr Clr Drug Dosing 41.41 Estimated GFR (MDRD) 46 BUN/Creatinine Ratio (No establ ref range) Glucose 83 (70-99) mg/dL POC Glucose (70-99) mg/dL Lactic Acid 3.7 H* (0.4-2.0) mmol/L Calcium 6.0 L (8.5-10.1) mg/dL Phosphorus 3.8 (2.6-4.7) mg/dL Magnesium 1.3 L (1.8-2.4) mg/dL Iron (65-175) ug/dL TIBC (250-450) ug/dL % Saturation (20.0-50.0) % Total Bilirubin 0.8 (0.2-1.0) mg/dL Direct Bilirubin 0.5 H (0.0-0.2) mg/dL Indirect Bilirubin 0.3 AST 128 H (15-37) U/L ALT 94 H (16-63) U/L Alkaline Phosphatase 175 H (46-116) U/L Ammonia (11-32) umol/L Creatine Kinase (39-308) U/L Troponin I High Sens (<=76) pg/mL C-Reactive Protein (0.0-0.9) mg/dL Total Protein 4.3 L (6.4-8.2) g/dL Albumin 0.9 L (3.4-5.0) g/dL Globulin 3.4 Albumin/Globulin Ratio 0.26 Vitamin B12 4084 H (193-986) pg/mL Folate 3.9 L (8.6-58.9) ng/mL Free T4 1.44 (0.76-1.46) ng/dL TSH, Ultra Sensitive (0.36-3.74) uIU/mL Urine Color (YELLOW) Urine Appearance (CLEAR) Urine pH (5.0-9.0) Ur Specific [place] (1.005-1.030) Urine Protein (NEGATIVE) Urine Glucose (UA) (NEGATIVE) Urine Ketones (NEGATIVE) Urine Occult Blood (NEGATIVE) Urine Nitrite (NEGATIVE) Urine Bilirubin (NEGATIVE) Urine Urobilinogen (0.2-1.0) mg/dL Ur Leukocyte Esterase (NEGATIVE) Urine RBC (0-5) /HPF Urine WBC (0-5/HPF) /HPF Ur Epithelial Cells (NOT SEEN) /HPF Urine Bacteria (0-FEW/HPF) /HPF Fine Granular Casts (NOT SEEN) /LPF Urine Opiates Screen (NEGATIVE) Ur Oxycodone Screen (NEGATIVE) Urine Methadone Screen (NEGATIVE) Ur Barbiturates Screen (NEGATIVE) U Tricyclic Antidepress (NEGATIVE) Ur Phencyclidine Scrn (NEGATIVE) Ur Amphetamine Screen (NEGATIVE) U Methamphetamines Scrn (NEGATIVE) Urine MDMA Screen (NEGATIVE) U Benzodiazepines Scrn (NEGATIVE) Urine Cocaine Screen (NEGATIVE) U Marijuana (THC) Screen (NEGATIVE) Ethyl Alcohol (0) mg/dL HIV-1 Antibody (NONREACTIVE) HIV-2 Antibody (NONREACTIVE) HIV P24 Antigen (NONREACTIVE) Influenza Type A RNA (NEGATIVE) RSV RNA (INAAT) (NEGATIVE) Influenza Type B RNA (NEGATIVE) SARS-CoV-2 RNA (ARGENIS) (NEGATIVE) 06/04/21 06/04/21 06/04/21 Range/Units 06:50 08:21 10:47 WBC (5.0-10.0) 10^3/uL RBC (4.6-6.2) 10^6/uL Hgb (14.0-18.0) g/dL Hct (40.0-54.0) % MCV (80-100) fL MCH (27.0-34.0) pg MCHC (33.0-35.0) g/dL Plt Count (150-450) 10^3/uL Neut % (Auto) (42.2-75.2) % Lymph % (Auto) (20.5-50.1) % [place] % (Auto) (2-8) % Eos % (Auto) (1.0-3.0) % Baso % (Auto) (0.0-1.0) % Add Manual Diff Neutrophils % (Manual) (42-75) % Band Neutrophils % % Lymphocytes % (Manual) (20-50) % Monocytes % (Manual) (2-8) % Vacuolated Monocytes Toxic Granulation Platelet Estimate Hypochromasia Poikilocytosis Anisocytosis Microcytosis Percent Retic (0.5-1.5) % PT (9.0-12.0) SEC INR (0.9-1.2) APTT (22.0-34.0) SEC Sodium (136-145) mmol/L Potassium (3.5-5.1) mmol/L Chloride (98-107) mmol/L Carbon Dioxide (21-32) mmol/L Anion Gap (7-13) mEq/L BUN (7-18) mg/dL Creatinine (0.70-1.30) mg/dL Est Cr Clr Drug Dosing Estimated GFR (MDRD) BUN/Creatinine Ratio (No establ ref range) Glucose (70-99) mg/dL POC Glucose 50 L 102 H (70-99) mg/dL Lactic Acid (0.4-2.0) mmol/L Calcium (8.5-10.1) mg/dL Phosphorus (2.6-4.7) mg/dL Magnesium (1.8-2.4) mg/dL Iron 12 L (65-175) ug/dL TIBC 79 L (250-450) ug/dL % Saturation 15.2 L (20.0-50.0) % Total Bilirubin (0.2-1.0) mg/dL Direct Bilirubin (0.0-0.2) mg/dL Indirect Bilirubin AST (15-37) U/L ALT (16-63) U/L Alkaline Phosphatase (46-116) U/L Ammonia (11-32) umol/L Creatine Kinase (39-308) U/L Troponin I High Sens (<=76) pg/mL C-Reactive Protein (0.0-0.9) mg/dL Total Protein (6.4-8.2) g/dL Albumin (3.4-5.0) g/dL Globulin Albumin/Globulin Ratio Vitamin B12 (193-986) pg/mL Folate (8.6-58.9) ng/mL Free T4 (0.76-1.46) ng/dL TSH, Ultra Sensitive (0.36-3.74) uIU/mL Urine Color (YELLOW) Urine Appearance (CLEAR) Urine pH (5.0-9.0) Ur Specific [place] (1.005-1.030) Urine Protein (NEGATIVE) Urine Glucose (UA) (NEGATIVE) Urine Ketones (NEGATIVE) Urine Occult Blood (NEGATIVE) Urine Nitrite (NEGATIVE) Urine Bilirubin (NEGATIVE) Urine Urobilinogen (0.2-1.0) mg/dL Ur Leukocyte Esterase (NEGATIVE) Urine RBC (0-5) /HPF Urine WBC (0-5/HPF) /HPF Ur Epithelial Cells (NOT SEEN) /HPF Urine Bacteria (0-FEW/HPF) /HPF Fine Granular Casts (NOT SEEN) /LPF Urine Opiates Screen (NEGATIVE) Ur Oxycodone Screen (NEGATIVE) Urine Methadone Screen (NEGATIVE) Ur Barbiturates Screen (NEGATIVE) U Tricyclic Antidepress (NEGATIVE) Ur Phencyclidine Scrn (NEGATIVE) Ur Amphetamine Screen (NEGATIVE) U Methamphetamines Scrn (NEGATIVE) Urine MDMA Screen (NEGATIVE) U Benzodiazepines Scrn (NEGATIVE) Urine Cocaine Screen (NEGATIVE) U Marijuana (THC) Screen (NEGATIVE) Ethyl Alcohol (0) mg/dL HIV-1 Antibody (NONREACTIVE) HIV-2 Antibody (NONREACTIVE) HIV P24 Antigen (NONREACTIVE) Influenza Type A RNA (NEGATIVE) RSV RNA (INAAT) (NEGATIVE) Influenza Type B RNA (NEGATIVE) SARS-CoV-2 RNA (ARGENIS) (NEGATIVE) 06/04/21 06/04/21 Range/Units 11:52 13:44 WBC (5.0-10.0) 10^3/uL RBC (4.6-6.2) 10^6/uL Hgb (14.0-18.0) g/dL Hct (40.0-54.0) % MCV (80-100) fL MCH (27.0-34.0) pg MCHC (33.0-35.0) g/dL Plt Count (150-450) 10^3/uL Neut % (Auto) (42.2-75.2) % Lymph % (Auto) (20.5-50.1) % [place] % (Auto) (2-8) % Eos % (Auto) (1.0-3.0) % Baso % (Auto) (0.0-1.0) % Add Manual Diff Neutrophils % (Manual) (42-75) % Band Neutrophils % % Lymphocytes % (Manual) (20-50) % Monocytes % (Manual) (2-8) % Vacuolated Monocytes Toxic Granulation Platelet Estimate Hypochromasia Poikilocytosis Anisocytosis Microcytosis Percent Retic (0.5-1.5) % PT (9.0-12.0) SEC INR (0.9-1.2) APTT (22.0-34.0) SEC Sodium (136-145) mmol/L Potassium (3.5-5.1) mmol/L Chloride (98-107) mmol/L Carbon Dioxide (21-32) mmol/L Anion Gap (7-13) mEq/L BUN (7-18) mg/dL Creatinine (0.70-1.30) mg/dL Est Cr Clr Drug Dosing Estimated GFR (MDRD) BUN/Creatinine Ratio (No establ ref range) Glucose (70-99) mg/dL POC Glucose 80 72 (70-99) mg/dL Lactic Acid (0.4-2.0) mmol/L Calcium (8.5-10.1) mg/dL Phosphorus (2.6-4.7) mg/dL Magnesium (1.8-2.4) mg/dL Iron (65-175) ug/dL TIBC (250-450) ug/dL % Saturation (20.0-50.0) % Total Bilirubin (0.2-1.0) mg/dL Direct Bilirubin (0.0-0.2) mg/dL Indirect Bilirubin AST (15-37) U/L ALT (16-63) U/L Alkaline Phosphatase (46-116) U/L Ammonia (11-32) umol/L Creatine Kinase (39-308) U/L Troponin I High Sens (<=76) pg/mL C-Reactive Protein (0.0-0.9) mg/dL Total Protein (6.4-8.2) g/dL Albumin (3.4-5.0) g/dL Globulin Albumin/Globulin Ratio Vitamin B12 (193-986) pg/mL Folate (8.6-58.9) ng/mL Free T4 (0.76-1.46) ng/dL TSH, Ultra Sensitive (0.36-3.74) uIU/mL Urine Color (YELLOW) Urine Appearance (CLEAR) Urine pH (5.0-9.0) Ur Specific [place] (1.005-1.030) Urine Protein (NEGATIVE) Urine Glucose (UA) (NEGATIVE) Urine Ketones (NEGATIVE) Urine Occult Blood (NEGATIVE) Urine Nitrite (NEGATIVE) Urine Bilirubin (NEGATIVE) Urine Urobilinogen (0.2-1.0) mg/dL Ur Leukocyte Esterase (NEGATIVE) Urine RBC (0-5) /HPF Urine WBC (0-5/HPF) /HPF Ur Epithelial Cells (NOT SEEN) /HPF Urine Bacteria (0-FEW/HPF) /HPF Fine Granular Casts (NOT SEEN) /LPF Urine Opiates Screen (NEGATIVE) Ur Oxycodone Screen (NEGATIVE) Urine Methadone Screen (NEGATIVE) Ur Barbiturates Screen (NEGATIVE) U Tricyclic Antidepress (NEGATIVE) Ur Phencyclidine Scrn (NEGATIVE) Ur Amphetamine Screen (NEGATIVE) U Methamphetamines Scrn (NEGATIVE) Urine MDMA Screen (NEGATIVE) U Benzodiazepines Scrn (NEGATIVE) Urine Cocaine Screen (NEGATIVE) U Marijuana (THC) Screen (NEGATIVE) Ethyl Alcohol (0) mg/dL HIV-1 Antibody (NONREACTIVE) HIV-2 Antibody (NONREACTIVE) HIV P24 Antigen (NONREACTIVE) Influenza Type A RNA (NEGATIVE) RSV RNA (INAAT) (NEGATIVE) Influenza Type B RNA (NEGATIVE) SARS-CoV-2 RNA (ARGENIS) (NEGATIVE) Result Diagrams: 06/04/21 06:50 06/04/21 06:50 Lane Results Last 24 hrs: Microbiology 06/03/21 16:55 Aerobic Blood Culture - Preliminary Blood - Arm, Left Anaerobic Blood Culture - Preliminary 06/03/21 17:01 Aerobic Blood Culture - Preliminary Blood - Arm, Right Anaerobic Blood Culture - Preliminary Sepsis Event Note - Evaluation Sepsis Screening Result: Possible Sepsis Risk - Focused Exam Vital Signs: Vital Signs Temp Pulse Resp BP Pulse Ox 06/04/21 12:00 96.4 F L 86 20 92/51 L 98 06/04/21 08:46 96.1 F L 89 20 89/47 L 98 06/04/21 04:00 98.9 F 92 22 H 94/54 L 96 - Problem List & Annotations (1) Pneumonia SNOMED Code(s): 679596405 Code(s): J18.9 - PNEUMONIA, UNSPECIFIED ORGANISM Status: Acute Current Visit: Yes (2) Pneumonia SNOMED Code(s): 638700753 Code(s): J18.9 - PNEUMONIA, UNSPECIFIED ORGANISM Status: Acute Current Visit: Yes (3) Renal failure SNOMED Code(s): 06645039 Code(s): N19 - UNSPECIFIED KIDNEY FAILURE Status: Acute Current Visit: Yes (4) Anemia SNOMED Code(s): 272804914 Code(s): D64.9 - ANEMIA, UNSPECIFIED Status: Acute Current Visit: Yes (5) Acute metabolic encephalopathy SNOMED Code(s): 43414013, 346558142 Code(s): G93.41 - METABOLIC ENCEPHALOPATHY Status: Acute Current Visit: Yes (6) Cachexia SNOMED Code(s): 861983201 Code(s): R64 - CACHEXIA Status: Acute Current Visit: Yes (7) Hyponatremia SNOMED Code(s): 41500199 Code(s): E87.1 - HYPO-OSMOLALITY AND HYPONATREMIA Status: Acute Current Visit: Yes (8) Sepsis SNOMED Code(s): 87306577 Code(s): A41.9 - SEPSIS, UNSPECIFIED ORGANISM Status: Acute Current Visit: Yes Qualifiers: Sepsis type: sepsis due to unspecified organism Sepsis acute organ dysfunction status: without acute organ dysfunction Qualified Code(s): A41.9 - Sepsis, unspecified organism (9) Unexplained weight loss SNOMED Code(s): 648747926 Code(s): R63.4 - ABNORMAL WEIGHT LOSS Status: Acute Current Visit: Yes - Problem List Review Problem List Initiated/Reviewed/Updated: Yes - My Orders Last 24 Hours: My Active Orders 06/03/21 20:00 Dextrose 5%-0.9% NaCl [Dextrose 5%-Normal Saline] 1,000 ml IV ASDIRECTED 06/03/21 20:13 Oxygen Therapy [RC] PRN Up With Assistance [RC] ASDIRECTED VTE/DVT Education [RC] 08,20 Vital Signs [RC] 00,04,08,12,16,20 OT Evaluation and Treatment [CONS] Routine PT Evaluation and Treatment [CONS] Routine Acetaminophen [TylenoL] 650 mg PO Q4H PRN Acetaminophen/HYDROcodone [Varna 325-10 MG] 1 tab PO Q4H PRN Ondansetron [Zofran ODT] 4 mg PO Q4H PRN Ondansetron [Zofran] 4 mg IVPUSH Q4H PRN Resuscitation Status Routine 06/03/21 20:50 Blood Glucose Check, Bedside [RC] 01,05,09,13,17,21 06/03/21 22:00 Heparin Sodium 5,000 units SUBCUT Q8HR 06/04/21 02:00 Cefepime [Maxipime] 1 gm Sodium Chloride 0.9% [Normal Saline AdvBag] 50 ml IV Q8H 06/04/21 04:00 metroNIDAZOLE/Normal Saline [Flagyl in NS 500 MG/100 ML] 500 mg Premix Bag 100 bag IV Q8H 06/04/21 06:42 Dextrose 50% in Water 50 ml IVPUSH ASDIRECTED PRN 06/04/21 06:50 FREE T3 [REF] AM 06/04/21 14:45 Folic Acid 1 mg PO DAILY Iron Polysaccharides Complex [Ferrex 150] 150 mg PO DAILY Multivitamins w-Iron/Ca/FA/Min [Thera M Plus] 1 tab PO DAILY Thiamine [Vitamin B-1] 100 mg PO DAILY 06/05/21 05:11 ACTH, PLASMA [REF] AM CORTISOL [REF] AM HEPATIC FUNCTION PANEL,HFP [CHEM] AM LACTIC ACID [CHEM] AM MAGNESIUM [CHEM] AM PHOSPHORUS [CHEM] AM 06/05/21 05:15 BASIC METABOLIC PANEL,BMP [CHEM] AM CBC WITH AUTO DIFF [HEME] AM 06/05/21 19:45 ACID FAST BACILLI SMEAR [AFB] DAILY - Plan Plan:: presented with wght loss, tachycardia, cough appears chronically ill Sepsis Likely due to pulmonary infection Blood cx: positive Continue IVF Recheck lactic acid in AM Treat infection Pneumonia Atypical nodules on CT chest putum cx: pending 06/03/21 blood cx: gram pos cocci Ua: neg nitrate, leuk but + bacteria likely contaminant- urine cx pending Obtain acid fast bacilli from sputum Droplet isolation for possible TB Hypoglycemia, severe recurrent Severe malnutrition Received multiple d50 iv injections overnight Cont IVF with D5 Encourage PO intake Check BS q4h and give dextrose as needed Acute encephalopathy likely acute, metabolic Might relate to sepsis Might relate to hypoglycemia correct Negative ammonia, check urine drug Doubt meningitis Hyponatremia Mild Will follow with hydration Anemia, microcytic thrombocytopenia Likely anemia of chronic disease, iron def Will follow hgb b12 normal low folate, iron, elevated retic count will supplement MVI, thiamine, b12, folate, iron check cbc in AM Elevated LFts High ast/alt Normal tbili Check for viral hepatitis Malnutrition Severe HIV negative Ct chest/abd/pelvis negative for malignancy [employer] 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 Tb TSH mildly elevated - likely not enough for this severe wght loss - pending free t3, normal free t4 Check acth and cortisol level Renal failure Likely acute, POA Some improvement Will continue to hydrate well Dvt prophylaxis Sq heparin depending on course he might benefit from specialist consultation with ID, endoc rinology, neurology I have called NHUNG Olivarez, Dami Gutiérrez, Christy Del Cid [facility] - no bed available
[2021-06-04] MEDS: Folic Acid 1 MG Tab PO SCH (17:18)
[2021-06-04] MEDS: Thiamine 100 MG Tab PO SCH (17:19)
[2021-06-04] MEDS: Multivitamins with Iron/Calcium/Folic Acid/Minerals Tab PO SCH (17:19)
[2021-06-04] MEDS: Iron Polysaccharides Complex 150 MG Cap PO SCH (17:19)
[2021-06-05] MEDS: Dextrose 5%-0.9% NaCl 1,000 ML IV SCH ×3 (01:00→16:03)
[2021-06-05] MEDS: 50% Dextrose in Water 50 ML Syringe IVPUSH PRN ×3 (01:53→17:35)
[2021-06-05] MEDS: Cefepime 1 GM in Sodium Chloride 0.9% 50 ML IV SCH ×3 (01:53→17:39)
[2021-06-05] MEDS: metroNIDAZOLE/Normal Saline 500 MG in Premix Bag 100 BAG IV SCH ×2 (03:50→13:03)
[2021-06-05] MEDS: Heparin Sodium 5,000 Units/ML Vial SUBCUT SCH ×2 (05:43→14:56)
[2021-06-05 07:05] LABS: ANION GAP 14.7 mEq/L (7-13)
[2021-06-05] MEDS: Iron Polysaccharides Complex 150 MG Cap PO SCH (10:08)
[2021-06-05] MEDS: Folic Acid 1 MG Tab PO SCH (10:08)
[2021-06-05] MEDS: Thiamine 100 MG Tab PO SCH (10:08)
[2021-06-05] MEDS: Multivitamins with Iron/Calcium/Folic Acid/Minerals Tab PO SCH (10:09)
--- NOTE | 2021-06-05 12:22 | PCM.PN ---
- General Info Date of Service: 06/05/21 Admission Dx/Problem (Free Text): Admission Diagnosis/Problem Admission Diagnosis/Problem Septicemia, Sepsis Subjective Update: continued to have recurrent hypoglycemia, received multiple doses of D50 push, continued IV D5NS alert this morning starting to eat/drink ensure no c/o headache, no associated focal neuro deficit dark urine noted no more blood per rectum - Review of Systems General: Denies: Fever Pulmonary: Denies: Shortness of Breath Cardiovascular: Reports: Edema (trace) Genitourinary: Reports: Hematuria (dark urine). Denies: Dysuria Neurological: Reports: Confusion (improved) - Patient Data Vitals - Most Recent: Last Vital Signs Temp 99.8 F 06/05/21 08:16 Pulse 85 06/05/21 08:16 Resp 20 06/05/21 08:16 BP 82/44 L 06/05/21 08:16 Pulse Ox 97 06/05/21 08:16 Weight - Most Recent: 120 lb 11.2 oz I&O - Last 24 Hours: Intake & Output 06/04/21 06/05/21 06/05/21 22:59 06:59 14:59 Intake Total 320 50 Output Total 150 625 Balance 170 -575 Lab Results Last 24 Hours: Laboratory Results - last 24 hr 06/04/21 06/04/21 06/04/21 Range/Units 06:50 13:44 16:23 WBC (5.0-10.0) 10^3/uL RBC (4.6-6.2) 10^6/uL Hgb (14.0-18.0) g/dL Hct (40.0-54.0) % MCV (80-100) fL MCH (27.0-34.0) pg MCHC (33.0-35.0) g/dL Plt Count (150-450) 10^3/uL Neut % (Auto) (42.2-75.2) % Lymph % (Auto) (20.5-50.1) % [place] % (Auto) (2-8) % Eos % (Auto) (1.0-3.0) % Baso % (Auto) (0.0-1.0) % Add Manual Diff Sodium (136-145) mmol/L Potassium (3.5-5.1) mmol/L Chloride (98-107) mmol/L Carbon Dioxide (21-32) mmol/L Anion Gap (7-13) mEq/L BUN (7-18) mg/dL Creatinine (0.70-1.30) mg/dL Est Cr Clr Drug Dosing mL/min Estimated GFR (MDRD) Glucose (70-99) mg/dL POC Glucose 72 109 H (70-99) mg/dL Lactic Acid (0.4-2.0) mmol/L Calcium (8.5-10.1) mg/dL Phosphorus (2.6-4.7) mg/dL Magnesium (1.8-2.4) mg/dL Total Bilirubin (0.2-1.0) mg/dL Direct Bilirubin (0.0-0.2) mg/dL Indirect Bilirubin AST (15-37) U/L ALT (16-63) U/L Alkaline Phosphatase (46-116) U/L Total Protein (6.4-8.2) g/dL Albumin (3.4-5.0) g/dL Globulin Albumin/Globulin Ratio Free T3 pg/mL 1.55 L (2.50-3.90) pg/mL 06/04/21 06/05/21 06/05/21 Range/Units 20:11 01:45 02:23 WBC (5.0-10.0) 10^3/uL RBC (4.6-6.2) 10^6/uL Hgb (14.0-18.0) g/dL Hct (40.0-54.0) % MCV (80-100) fL MCH (27.0-34.0) pg MCHC (33.0-35.0) g/dL Plt Count (150-450) 10^3/uL Neut % (Auto) (42.2-75.2) % Lymph % (Auto) (20.5-50.1) % [place] % (Auto) (2-8) % Eos % (Auto) (1.0-3.0) % Baso % (Auto) (0.0-1.0) % Add Manual Diff Sodium (136-145) mmol/L Potassium (3.5-5.1) mmol/L Chloride (98-107) mmol/L Carbon Dioxide (21-32) mmol/L Anion Gap (7-13) mEq/L BUN (7-18) mg/dL Creatinine (0.70-1.30) mg/dL Est Cr Clr Drug Dosing mL/min Estimated GFR (MDRD) Glucose (70-99) mg/dL POC Glucose 77 48 L* 125 H (70-99) mg/dL Lactic Acid (0.4-2.0) mmol/L Calcium (8.5-10.1) mg/dL Phosphorus (2.6-4.7) mg/dL Magnesium (1.8-2.4) mg/dL Total Bilirubin (0.2-1.0) mg/dL Direct Bilirubin (0.0-0.2) mg/dL Indirect Bilirubin AST (15-37) U/L ALT (16-63) U/L Alkaline Phosphatase (46-116) U/L Total Protein (6.4-8.2) g/dL Albumin (3.4-5.0) g/dL Globulin Albumin/Globulin Ratio Free T3 pg/mL (2.50-3.90) pg/mL 06/05/21 06/05/21 06/05/21 Range/Units 05:41 06:16 06:16 WBC 20.2 H (5.0-10.0) 10^3/uL RBC 2.63 L (4.6-6.2) 10^6/uL Hgb 6.5 L* D (14.0-18.0) g/dL Hct 19.8 L* (40.0-54.0) % MCV 75.3 L (80-100) fL MCH 24.7 L (27.0-34.0) pg MCHC 32.8 L (33.0-35.0) g/dL Plt Count 52 L (150-450) 10^3/uL Neut % (Auto) 98.1 H (42.2-75.2) % Lymph % (Auto) 0.9 L (20.5-50.1) % [place] % (Auto) 0.9 L (2-8) % Eos % (Auto) 0.0 L (1.0-3.0) % Baso % (Auto) 0.1 (0.0-1.0) % Add Manual Diff Sodium 133 L (136-145) mmol/L Potassium 3.7 (3.5-5.1) mmol/L Chloride 104 (98-107) mmol/L Carbon Dioxide 18 L (21-32) mmol/L Anion Gap 14.7 H (7-13) mEq/L BUN 30 H (7-18) mg/dL Creatinine 1.45 H (0.70-1.30) mg/dL Est Cr Clr Drug Dosing 54.01 mL/min Estimated GFR (MDRD) 55 Glucose 131 H (70-99) mg/dL POC Glucose 45 L* (70-99) mg/dL Lactic Acid (0.4-2.0) mmol/L Calcium 5.9 L* (8.5-10.1) mg/dL Phosphorus 2.9 (2.6-4.7) mg/dL Magnesium 1.3 L (1.8-2.4) mg/dL Total Bilirubin 0.6 (0.2-1.0) mg/dL Direct Bilirubin 0.5 H (0.0-0.2) mg/dL Indirect Bilirubin 0.1 AST 95 H (15-37) U/L ALT 71 H (16-63) U/L Alkaline Phosphatase 146 H (46-116) U/L Total Protein 4.0 L (6.4-8.2) g/dL Albumin 0.7 L (3.4-5.0) g/dL Globulin 3.3 Albumin/Globulin Ratio 0.21 Free T3 pg/mL (2.50-3.90) pg/mL 06/05/21 06/05/21 06/05/21 Range/Units 06:16 07:49 11:46 WBC (5.0-10.0) 10^3/uL RBC (4.6-6.2) 10^6/uL Hgb (14.0-18.0) g/dL Hct (40.0-54.0) % MCV (80-100) fL MCH (27.0-34.0) pg MCHC (33.0-35.0) g/dL Plt Count (150-450) 10^3/uL Neut % (Auto) (42.2-75.2) % Lymph % (Auto) (20.5-50.1) % [place] % (Auto) (2-8) % Eos % (Auto) (1.0-3.0) % Baso % (Auto) (0.0-1.0) % Add Manual Diff Sodium (136-145) mmol/L Potassium (3.5-5.1) mmol/L Chloride (98-107) mmol/L Carbon Dioxide (21-32) mmol/L Anion Gap (7-13) mEq/L BUN (7-18) mg/dL Creatinine (0.70-1.30) mg/dL Est Cr Clr Drug Dosing mL/min Estimated GFR (MDRD) Glucose (70-99) mg/dL POC Glucose 70 70 (70-99) mg/dL Lactic Acid 2.8 H* (0.4-2.0) mmol/L Calcium (8.5-10.1) mg/dL Phosphorus (2.6-4.7) mg/dL Magnesium (1.8-2.4) mg/dL Total Bilirubin (0.2-1.0) mg/dL Direct Bilirubin (0.0-0.2) mg/dL Indirect Bilirubin AST (15-37) U/L ALT (16-63) U/L Alkaline Phosphatase (46-116) U/L Total Protein (6.4-8.2) g/dL Albumin (3.4-5.0) g/dL Globulin Albumin/Globulin Ratio Free T3 pg/mL (2.50-3.90) pg/mL Lane Results Last 24 Hours: Microbiology 06/04/21 16:58 Aerobic Blood Culture - Preliminary Blood - Arm, Right 06/03/21 17:01 Aerobic Blood Culture - Preliminary Blood - Arm, Right Anaerobic Blood Culture - Preliminary 06/03/21 16:55 Aerobic Blood Culture - Preliminary Blood - Arm, Left Anaerobic Blood Culture - Preliminary Med Orders - Current: Current Medications Acetaminophen (Acetaminophen 325 Mg Tab) 650 mg PO Q4H PRN PRN Reason: Pain (Mild 1-3)/fever Hydrocodone Bitart/Acetaminophen (Acetaminophen/Hydrocodone 325-10 Mg Tab) 1 tab PO Q4H PRN PRN Reason: Pain (moderate 4-6) Last Admin: 06/04/21 14:09 Dose: 1 tab Documented by: Dextrose/Water (50% Dextrose In Water 50 Ml Syringe) 50 ml IVPUSH ASDIRECTED PRN PRN Reason: Hypoglycemia BS<70 Last Admin: 06/05/21 05:45 Dose: 50 ml Documented by: Folic Acid (Folic Acid 1 Mg Tab) 1 mg PO DAILY NABIL Last Admin: 06/05/21 10:08 Dose: 1 mg Documented by: Heparin Sodium (Porcine) (Heparin Sodium 5,000 Units/Ml Vial) 5,000 units SUBCUT Q8HR [facility] Last Admin: 06/05/21 05:43 Dose: 5,000 units Documented by: Cefepime HCl 1 gm/ Sodium (Chloride) 50 mls @ 100 mls/hr IV Q8H [facility] Last Admin: 06/05/21 10:09 Dose: 100 mls/hr Documented by: Dextrose/Sodium Chloride (Dextrose 5%-Normal Saline) 1,000 mls @ 150 mls/hr IV ASDIRECTED [facility] Last Admin: 06/05/21 07:53 Dose: 150 mls/hr Documented by: Vancomycin HCl 1 gm/ Sodium (Chloride) 250 mls @ 167 mls/hr IV Q12H [facility] Multivitamins/Minerals (Multivitamins With Iron/Calcium/Folic Acid/Minerals Tab) 1 tab PO DAILY [facility] Last Admin: 06/05/21 10:09 Dose: 1 tab Documented by: Ondansetron HCl (Ondansetron 4 Mg Tab.Dis) 4 mg PO Q4H PRN PRN Reason: nausea, able to take PO Ondansetron HCl (Ondansetron 4 Mg/2 Ml Sdv) 4 mg IVPUSH Q4H PRN PRN Reason: Nausea/Vomiting Polysaccharide Iron Complex (Iron Polysaccharides Complex 150 Mg Cap) 150 mg PO DAILY [facility] Last Admin: 06/05/21 10:08 Dose: 150 mg Documented by: Sodium Chloride (Sodium Chloride 0.9% 10 Ml Syringe) 10 ml FLUSH ASDIRECTED PRN PRN Reason: Keep Vein Open Last Admin: 06/04/21 17:22 Dose: 10 ml Documented by: Thiamine HCl (Thiamine 100 Mg Tab) 100 mg PO DAILY [facility] Last Admin: 06/05/21 10:08 Dose: 100 mg Documented by: Vancomycin HCl (Pharmacy To Dose - Vancomycin) 1 dose .XX ASDIRECTED [facility] Discontinued Medications Albuterol/Ipratropium (Albuterol/Ipratropium 3.0-0.5 Mg/3 Ml Neb Soln) 3 ml NEB ONETIME ONE Stop: 06/03/21 18:47 Last Admin: 06/03/21 18:53 Dose: 3 ml Documented by: Albuterol/Ipratropium (Albuterol/Ipratropium 3.0-0.5 Mg/3 Ml Neb Soln) Confirm Administered Dose 3 ml .ROUTE .STK-MED ONE Stop: 06/03/21 18:54 Last Admin: 06/03/21 19:24 Dose: Not Given Documented by: Dextrose/Water (50% Dextrose In Water 50 Ml Syringe) Confirm Administered Dose 50 ml .ROUTE .STK-MED ONE Stop: 06/03/21 19:50 Last Admin: 06/03/21 19:51 Dose: 50 ml Documented by: Dextrose/Water (50% Dextrose In Water 50 Ml Syringe) 50 ml IVPUSH ONETIME ONE Stop: 06/03/21 19:54 Last Admin: 06/04/21 01:14 Dose: Not Given Documented by: Dextrose/Water (50% Dextrose In Water 50 Ml Syringe) 25 ml IVPUSH ASDIRECTED PRN PRN Reason: Hypoglycemia BS<70 Last Admin: 06/04/21 06:12 Dose: 25 ml Documented by: Sodium Chloride (Normal Saline) 1,000 mls @ 100 mls/hr IV ASDIRECTED [facility] Last Admin: 06/03/21 17:52 Dose: 100 mls/hr Documented by: Cefepime HCl 1 gm/ Sodium (Chloride) 50 mls @ 100 mls/hr IV ONETIME ONE Stop: 06/03/21 18:36 Last Admin: 06/03/21 18:48 Dose: 100 mls/hr Documented by: Metronidazole 500 mg/ Premix 100 mls @ 100 mls/hr IV ONETIME ONE Stop: 06/03/21 20:16 Last Admin: 06/03/21 21:10 Dose: 100 mls/hr Documented by: Metronidazole 500 mg/ Premix 100 mls @ 100 mls/hr IV Q8H [facility] Last Admin: 06/05/21 03:50 Dose: 100 mls/hr Documented by: Magnesium Oxide (Magnesium Oxide 250 Mg Tab) 500 mg PO BIDMEALS [facility] Stop: 06/04/21 18:01 Last Admin: 06/04/21 17:24 Dose: 500 mg Documented by: - Exam General: Alert, Oriented (to place person, recent events), Other (cachectic) Neck: Supple Lungs: Clear to Auscultation, Normal Respiratory Effort Cardiovascular: Regular Rate, Regular Rhythm GI/Abdominal Exam: Normal Bowel Sounds, Soft, Non-Tender Extremities: Pedal Edema (trace b/l ) Skin: Warm, Dry Neurological: No New Focal Deficit Psy/Mental Status: Alert, Normal Affect, Normal Mood - Patient Data Lab Results Last 24 hrs: Laboratory Results - last 24 hr 06/04/21 06/04/21 06/04/21 Range/Units 06:50 13:44 16:23 WBC (5.0-10.0) 10^3/uL RBC (4.6-6.2) 10^6/uL Hgb (14.0-18.0) g/dL Hct (40.0-54.0) % MCV (80-100) fL MCH (27.0-34.0) pg MCHC (33.0-35.0) g/dL Plt Count (150-450) 10^3/uL Neut % (Auto) (42.2-75.2) % Lymph % (Auto) (20.5-50.1) % [place] % (Auto) (2-8) % Eos % (Auto) (1.0-3.0) % Baso % (Auto) (0.0-1.0) % Add Manual Diff Sodium (136-145) mmol/L Potassium (3.5-5.1) mmol/L Chloride (98-107) mmol/L Carbon Dioxide (21-32) mmol/L Anion Gap (7-13) mEq/L BUN (7-18) mg/dL Creatinine (0.70-1.30) mg/dL Est Cr Clr Drug Dosing mL/min Estimated GFR (MDRD) Glucose (70-99) mg/dL POC Glucose 72 109 H (70-99) mg/dL Lactic Acid (0.4-2.0) mmol/L Calcium (8.5-10.1) mg/dL Phosphorus (2.6-4.7) mg/dL Magnesium (1.8-2.4) mg/dL Total Bilirubin (0.2-1.0) mg/dL Direct Bilirubin (0.0-0.2) mg/dL Indirect Bilirubin AST (15-37) U/L ALT (16-63) U/L Alkaline Phosphatase (46-116) U/L Total Protein (6.4-8.2) g/dL Albumin (3.4-5.0) g/dL Globulin Albumin/Globulin Ratio Free T3 pg/mL 1.55 L (2.50-3.90) pg/mL 06/04/21 06/05/21 06/05/21 Range/Units 20:11 01:45 02:23 WBC (5.0-10.0) 10^3/uL RBC (4.6-6.2) 10^6/uL Hgb (14.0-18.0) g/dL Hct (40.0-54.0) % MCV (80-100) fL MCH (27.0-34.0) pg MCHC (33.0-35.0) g/dL Plt Count (150-450) 10^3/uL Neut % (Auto) (42.2-75.2) % Lymph % (Auto) (20.5-50.1) % [place] % (Auto) (2-8) % Eos % (Auto) (1.0-3.0) % Baso % (Auto) (0.0-1.0) % Add Manual Diff Sodium (136-145) mmol/L Potassium (3.5-5.1) mmol/L Chloride (98-107) mmol/L Carbon Dioxide (21-32) mmol/L Anion Gap (7-13) mEq/L BUN (7-18) mg/dL Creatinine (0.70-1.30) mg/dL Est Cr Clr Drug Dosing mL/min Estimated GFR (MDRD) Glucose (70-99) mg/dL POC Glucose 77 48 L* 125 H (70-99) mg/dL Lactic Acid (0.4-2.0) mmol/L Calcium (8.5-10.1) mg/dL Phosphorus (2.6-4.7) mg/dL Magnesium (1.8-2.4) mg/dL Total Bilirubin (0.2-1.0) mg/dL Direct Bilirubin (0.0-0.2) mg/dL Indirect Bilirubin AST (15-37) U/L ALT (16-63) U/L Alkaline Phosphatase (46-116) U/L Total Protein (6.4-8.2) g/dL Albumin (3.4-5.0) g/dL Globulin Albumin/Globulin Ratio Free T3 pg/mL (2.50-3.90) pg/mL 06/05/21 06/05/21 06/05/21 Range/Units 05:41 06:16 06:16 WBC 20.2 H (5.0-10.0) 10^3/uL RBC 2.63 L (4.6-6.2) 10^6/uL Hgb 6.5 L* D (14.0-18.0) g/dL Hct 19.8 L* (40.0-54.0) % MCV 75.3 L (80-100) fL MCH 24.7 L (27.0-34.0) pg MCHC 32.8 L (33.0-35.0) g/dL Plt Count 52 L (150-450) 10^3/uL Neut % (Auto) 98.1 H (42.2-75.2) % Lymph % (Auto) 0.9 L (20.5-50.1) % [place] % (Auto) 0.9 L (2-8) % Eos % (Auto) 0.0 L (1.0-3.0) % Baso % (Auto) 0.1 (0.0-1.0) % Add Manual Diff Sodium 133 L (136-145) mmol/L Potassium 3.7 (3.5-5.1) mmol/L Chloride 104 (98-107) mmol/L Carbon Dioxide 18 L (21-32) mmol/L Anion Gap 14.7 H (7-13) mEq/L BUN 30 H (7-18) mg/dL Creatinine 1.45 H (0.70-1.30) mg/dL Est Cr Clr Drug Dosing 54.01 mL/min Estimated GFR (MDRD) 55 Glucose 131 H (70-99) mg/dL POC Glucose 45 L* (70-99) mg/dL Lactic Acid (0.4-2.0) mmol/L Calcium 5.9 L* (8.5-10.1) mg/dL Phosphorus 2.9 (2.6-4.7) mg/dL Magnesium 1.3 L (1.8-2.4) mg/dL Total Bilirubin 0.6 (0.2-1.0) mg/dL Direct Bilirubin 0.5 H (0.0-0.2) mg/dL Indirect Bilirubin 0.1 AST 95 H (15-37) U/L ALT 71 H (16-63) U/L Alkaline Phosphatase 146 H (46-116) U/L Total Protein 4.0 L (6.4-8.2) g/dL Albumin 0.7 L (3.4-5.0) g/dL Globulin 3.3 Albumin/Globulin Ratio 0.21 Free T3 pg/mL (2.50-3.90) pg/mL 06/05/21 06/05/21 06/05/21 Range/Units 06:16 07:49 11:46 WBC (5.0-10.0) 10^3/uL RBC (4.6-6.2) 10^6/uL Hgb (14.0-18.0) g/dL Hct (40.0-54.0) % MCV (80-100) fL MCH (27.0-34.0) pg MCHC (33.0-35.0) g/dL Plt Count (150-450) 10^3/uL Neut % (Auto) (42.2-75.2) % Lymph % (Auto) (20.5-50.1) % [place] % (Auto) (2-8) % Eos % (Auto) (1.0-3.0) % Baso % (Auto) (0.0-1.0) % Add Manual Diff Sodium (136-145) mmol/L Potassium (3.5-5.1) mmol/L Chloride (98-107) mmol/L Carbon Dioxide (21-32) mmol/L Anion Gap (7-13) mEq/L BUN (7-18) mg/dL Creatinine (0.70-1.30) mg/dL Est Cr Clr Drug Dosing mL/min Estimated GFR (MDRD) Glucose (70-99) mg/dL POC Glucose 70 70 (70-99) mg/dL Lactic Acid 2.8 H* (0.4-2.0) mmol/L Calcium (8.5-10.1) mg/dL Phosphorus (2.6-4.7) mg/dL Magnesium (1.8-2.4) mg/dL Total Bilirubin (0.2-1.0) mg/dL Direct Bilirubin (0.0-0.2) mg/dL Indirect Bilirubin AST (15-37) U/L ALT (16-63) U/L Alkaline Phosphatase (46-116) U/L Total Protein (6.4-8.2) g/dL Albumin (3.4-5.0) g/dL Globulin Albumin/Globulin Ratio Free T3 pg/mL (2.50-3.90) pg/mL Result Diagrams: 06/05/21 06:16 06/05/21 06:16 Lane Results Last 24 hrs: Microbiology 06/04/21 16:58 Aerobic Blood Culture - Preliminary Blood - Arm, Right 06/03/21 17:01 Aerobic Blood Culture - Preliminary Blood - Arm, Right Anaerobic Blood Culture - Preliminary 06/03/21 16:55 Aerobic Blood Culture - Preliminary Blood - Arm, Left Anaerobic Blood Culture - Preliminary Sepsis Event Note - Evaluation Sepsis Screening Result: Severe Sepsis Risk - Focused Exam Vital Signs: Vital Signs Temp Pulse Resp BP Pulse Ox 06/05/21 08:16 99.8 F 85 20 82/44 L 97 06/05/21 04:00 98.3 F 120 H 20 90/50 L 94 L - Problem List & Annotations (1) Pneumonia SNOMED Code(s): 617409664 Code(s): J18.9 - PNEUMONIA, UNSPECIFIED ORGANISM Status: Acute Current Visit: Yes (2) Pneumonia SNOMED Code(s): 537967134 Code(s): J18.9 - PNEUMONIA, UNSPECIFIED ORGANISM Status: Acute Current Visit: Yes (3) Renal failure SNOMED Code(s): 19066855 Code(s): N19 - UNSPECIFIED KIDNEY FAILURE Status: Acute Current Visit: Yes (4) Anemia SNOMED Code(s): 158746342 Code(s): D64.9 - ANEMIA, UNSPECIFIED Status: Acute Current Visit: Yes (5) Acute metabolic encephalopathy SNOMED Code(s): 33181625, 979424444 Code(s): G93.41 - METABOLIC ENCEPHALOPATHY Status: Acute Current Visit: Yes (6) Cachexia SNOMED Code(s): 840247557 Code(s): R64 - CACHEXIA Status: Acute Current Visit: Yes (7) Hyponatremia SNOMED Code(s): 27071810 Code(s): E87.1 - HYPO-OSMOLALITY AND HYPONATREMIA Status: Acute Current Visit: Yes (8) Sepsis SNOMED Code(s): 55440882 Code(s): A41.9 - SEPSIS, UNSPECIFIED ORGANISM Status: Acute Current Visit: Yes Qualifiers: Sepsis type: sepsis due to unspecified organism Sepsis acute organ dysfunction status: without acute organ dysfunction Qualified Code(s): A41.9 - Sepsis, unspecified organism (9) Unexplained weight loss SNOMED Code(s): 015481461 Code(s): R63.4 - ABNORMAL WEIGHT LOSS Status: Acute Current Visit: Yes (10) Thrombocytopenia SNOMED Code(s): 913780166 Code(s): D69.6 - THROMBOCYTOPENIA, UNSPECIFIED Status: Acute Current Visit: Yes - Problem List Review Problem List Initiated/Reviewed/Updated: Yes - My Orders Last 24 Hours: My Active Orders 06/04/21 14:45 Folic Acid 1 mg PO DAILY Iron Polysaccharides Complex [Ferrex 150] 150 mg PO DAILY Multivitamins w-Iron/Ca/FA/Min [Thera M Plus] 1 tab PO DAILY Thiamine [Vitamin B-1] 100 mg PO DAILY 06/04/21 16:58 CULTURE BLOOD [BC] Stat QUANTIFERON TB PLUS [REF] Routine 06/04/21 17:03 CULTURE BLOOD [BC] Stat 06/04/21 19:18 Dietary Supplements [RC] ASDIRECTED 06/05/21 05:11 Blood Culture x2 Reflex Set [OM.PC] AM 06/05/21 06:16 ACTH, PLASMA [REF] AM CORTISOL [REF] AM 06/05/21 12:03 CULTURE URINE [RM] Routine 06/05/21 12:11 RED BLOOD CELLS LP [BBK] Routine TYPE AND SCREEN [BBK] Routine Transfuse RBC [Transfuse Red Blood Cells] [COMM] Routine 06/05/21 12:15 Pharmacy to Dose - Vancomycin 1 dose .XX ASDIRECTED 06/05/21 13:00 Vancomycin 1 gm Sodium Chloride 0.9% [Normal Saline AdvBag] 250 ml IV Q12H 06/06/21 05:11 CBC WITH AUTO DIFF [HEME] AM CMP [COMPREHENSIVE METABOLIC PN,CMP] [CHEM] AM LACTIC ACID [CHEM] AM 06/07/21 05:11 CBC WITH AUTO DIFF [HEME] AM CMP [COMPREHENSIVE METABOLIC PN,CMP] [CHEM] AM LACTIC ACID [CHEM] AM 06/07/21 13:30 VANCOMYCIN TROUGH [CHEM] Timed 06/08/21 05:11 CBC WITH AUTO DIFF [HEME] AM LACTIC ACID [CHEM] AM - Plan Plan:: presented with wght loss, tachycardia, cough appears chronically ill Sepsis Likely due to pulmonary infection Blood cx: positive Continue IVF lactic acid is persistently elevated - Recheck in AM Treat infection Pneumonia Atypical nodules on CT chest putum cx: pending 06/03/21 blood cx: gram pos cocci likely staph 06/04/21 blood cx: gram pos cocci Ua: neg nitrate, leuk but + bacteria likely contaminant- urine cx pending Obtain acid fast bacilli from sputum no sputum to collect Droplet isolation for possible TB Treat with cefepime, vanc Stop flagyl Concern for endocarditis Benefit from echo not available here Called [facility]) [facility] no bed available Hypoglycemia, severe recurrent Severe malnutrition Received multiple d50 iv injections Cont IVF with D5 Encourage PO intake Check BS q4h and give dextrose as needed Acute encephalopathy likely acute, metabolic Might relate to sepsis Might relate to hypoglycemia correct Negative ammonia, urine drug Doubt meningitis improving Hyponatremia Mild Will follow with hydration Anemia, microcytic thrombocytopenia Likely anemia of chronic disease, iron def Worsening is due to hydration B12 normal low folate, iron, elevated retic count will supplement MVI, thiamine, b12, folate, iron will give one unit of prbc tx discussed risks, benefits, alternatives with patient check cbc in AM Elevated LFts High ast/alt Normal tbili Improving Serology for viral hepatitis is pendig Malnutrition, wght loss, cachexia Severe HIV negative Ct chest/abd/pelvis negative for malignancy 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 Tb TSH mildly elevated - likely not enough for this severe wght loss - pending f ree t3, normal free t4 Check acth and cortisol level Renal failure Likely acute, POA Continued improvement (cr. On admission 1.88, Now 1.45) Will continue to hydrate well Dvt prophylaxis Sq heparin depending on course he might benefit from specialist consultation with ID, endocrinology, neurology I have called D[facility] - no bed available [facility] might have bed available early afternoon
--- NOTE | 2021-06-05 18:08 | PCM.DCSUM1 ---
Discharge Summary - Hospital Course Free Text/Narrative:: presented with wght loss, tachycardia, cough appears chronically ill Sepsis Likely due to pulmonary infection Blood cx: positive - likely staph lactic acid is persistently elevated - Recheck in AM Treat infection Continue IVF Pneumonia Atypical nodules, bronchiolitis seen on CT chest ct abd: non specific, small amount of ascites sputum cx: pending 06/03/21 blood cx: gram pos cocci likely staph 06/04/21 blood cx: gram pos cocci Ua: neg nitrate, leuk but + bacteria likely contaminant- urine cx pending tried to obtain acid fast bacilli from sputum but had no sputum to collect Treat with cefepime, vanc Concern for endocarditis would benefit from echo Hypoglycemia, severe, recurrent - continuously present for days Severe malnutrition Received multiple d50 iv injections Cont IVF with D5 Encourage PO intake Check BS q4h and give dextrose as needed Acute encephalopathy likely acute, metabolic Might relate to sepsis Might relate to hypoglycemia - correct Negative ammonia, urine drug Doubt meningitis improving Hyponatremia Mild Will follow with hydration Anemia, microcytic thrombocytopenia Likely anemia of chronic disease, iron def Worsening is due to hydration B12 normal low folate, iron, elevated retic count will supplement MVI, thiamine, b12, folate, iron given one unit of prbc tx on 06/05/20 discussed risks, benefits, alternatives with patient Elevated LFts High ast/alt Normal tbili Improving Serology for viral hepatitis is pending Malnutrition, wght loss, cachexia Severe HIV negative Ct chest/abd/pelvis negative for malignancy [employer] follow up Might relate to chronic lung infection ie. Tb TSH mildly elevated - likely not enough for this severe wght loss - pending free t3, normal free t4 Check acth and cortisol level Renal failure Likely acute, POA Continued improvement (cr. On admission 1.88, Now 1.45) Will continue to hydrate well Dvt prophylaxis Scd (thrombocytopenia) Diagnosis: Stroke: No - Discharge Data Discharge Date: 06/05/21 Discharge Disposition: DC/Tfer to Acute Hospital 02 Condition: Poor - Referral to Home Health Primary Care Physician: PCP None - Discharge Diagnosis/Problem(s) (1) Pneumonia SNOMED Code(s): 889540887 ICD Code: J18.9 - PNEUMONIA, UNSPECIFIED ORGANISM Status: Acute Current Visit: Yes (2) Pneumonia SNOMED Code(s): 871098150 ICD Code: J18.9 - PNEUMONIA, UNSPECIFIED ORGANISM Status: Acute Current Visit: Yes (3) Renal failure SNOMED Code(s): 81444133 ICD Code: N19 - UNSPECIFIED KIDNEY FAILURE Status: Acute Current Visit: Yes (4) Anemia SNOMED Code(s): 601745474 ICD Code: D64.9 - ANEMIA, UNSPECIFIED Status: Acute Current Visit: Yes (5) Acute metabolic encephalopathy SNOMED Code(s): 98080417, 650862631 ICD Code: G93.41 - METABOLIC ENCEPHALOPATHY Status: Acute Current Visit: Yes (6) Cachexia SNOMED Code(s): 037466182 ICD Code: R64 - CACHEXIA Status: Acute Current Visit: Yes (7) Hyponatremia SNOMED Code(s): 36982418 ICD Code: E87.1 - HYPO-OSMOLALITY AND HYPONATREMIA Status: Acute Current Visit: Yes (8) Sepsis SNOMED Code(s): 63482761 ICD Code: A41.9 - SEPSIS, UNSPECIFIED ORGANISM Status: Acute Current Visit: Yes Qualifiers: Sepsis type: sepsis due to unspecified organism Sepsis acute organ dysfunction status: without acute organ dysfunction Qualified Code(s): A41.9 - Sepsis, unspecified organism (9) Unexplained weight loss SNOMED Code(s): 432063564 ICD Code: R63.4 - ABNORMAL WEIGHT LOSS Status: Acute Current Visit: Yes (10) Thrombocytopenia SNOMED Code(s): 854189151 ICD Code: D69.6 - THROMBOCYTOPENIA, UNSPECIFIED Status: Acute Current Visit: Yes - Patient Summary/Data Consults: Consultations 06/03/21 20:13 OT Evaluation and Treatment [CONS] Routine PT Evaluation and Treatment [CONS] Routine - Patient Instructions Diet: Usual Diet as Tolerated Activity: As Tolerated - Discharge Plan *PRESCRIPTION DRUG MONITORING PROGRAM REVIEWED*: Not Applicable *COPY OF PRESCRIPTION DRUG MONITORING REPORT IN PATIENT ISAAC: Not Applicable Home Medications: Home Meds Cefepime [Maxipime] 1 gm IV Q8H vial 06/05/21 [Rx] Dextrose 50% in Water [Dextrose 50%-Water] 50 ml IVPUSH ASDIRECTED PRN syringe 06/05/21 [Rx] Folic Acid 1 mg PO DAILY tablet 06/05/21 [Rx] Iron Polysaccharides Complex [Ferrex 150] 150 mg PO DAILY cap 06/05/21 [Rx] Pharmacy to Dose - Vancomycin 1 dose .XX ASDIRECTED each 06/05/21 [Rx] Thiamine [Vitamin B-1] 100 mg PO DAILY tablet 06/05/21 [Rx] Oxygen Therapy Mode: Room Air - Discharge Summary/Plan Comment DC Time >30 min.: Yes Total # of Minutes for Discharge Time: 40 min, discussed with dr. Lange, ambulance forms, transfer arrangements - General Info Date of Service: 06/05/21 - Review of Systems General: Denies: Fever Pulmonary: Denies: Shortness of Breath Cardiovascular: Denies: Edema Gastrointestinal: Denies: Abdominal Pain Neurological: Reports: Confusion (improved) - Patient Data Vitals - Most Recent: Last Vital Signs Temp 99.4 F 06/05/21 17:53 Pulse 125 H 06/05/21 17:53 Resp 20 06/05/21 17:53 BP 85/48 L 06/05/21 17:53 Pulse Ox 96 06/05/21 17:53 Weight - Most Recent: 120 lb 11.2 oz I&O - Last 24 hours: Intake & Output 06/05/21 06/05/21 06/05/21 06:59 14:59 22:59 Intake Total 50 390 Output Total 625 Balance -575 390 Lab Results - Last 24 hrs: Laboratory Results - last 24 hr 06/04/21 06/04/21 06/05/21 Range/Units 06:50 20:11 01:45 WBC (5.0-10.0) 10^3/uL RBC (4.6-6.2) 10^6/uL Hgb (14.0-18.0) g/dL Hct (40.0-54.0) % MCV (80-100) fL MCH (27.0-34.0) pg MCHC (33.0-35.0) g/dL Plt Count (150-450) 10^3/uL Neut % (Auto) (42.2-75.2) % Lymph % (Auto) (20.5-50.1) % [place] % (Auto) (2-8) % Eos % (Auto) (1.0-3.0) % Baso % (Auto) (0.0-1.0) % Add Manual Diff Sodium (136-145) mmol/L Potassium (3.5-5.1) mmol/L Chloride (98-107) mmol/L Carbon Dioxide (21-32) mmol/L Anion Gap (7-13) mEq/L BUN (7-18) mg/dL Creatinine (0.70-1.30) mg/dL Est Cr Clr Drug Dosing mL/min Estimated GFR (MDRD) Glucose (70-99) mg/dL POC Glucose 77 48 L* (70-99) mg/dL Lactic Acid (0.4-2.0) mmol/L Calcium (8.5-10.1) mg/dL Phosphorus (2.6-4.7) mg/dL Magnesium (1.8-2.4) mg/dL Total Bilirubin (0.2-1.0) mg/dL Direct Bilirubin (0.0-0.2) mg/dL Indirect Bilirubin AST (15-37) U/L ALT (16-63) U/L Alkaline Phosphatase (46-116) U/L Total Protein (6.4-8.2) g/dL Albumin (3.4-5.0) g/dL Globulin Albumin/Globulin Ratio Free T3 pg/mL 1.55 L (2.50-3.90) pg/mL Blood Type Gel Antibody Screen Crossmatch 06/05/21 06/05/21 06/05/21 Range/Units 02:23 05:41 06:16 WBC (5.0-10.0) 10^3/uL RBC (4.6-6.2) 10^6/uL Hgb (14.0-18.0) g/dL Hct (40.0-54.0) % MCV (80-100) fL MCH (27.0-34.0) pg MCHC (33.0-35.0) g/dL Plt Count (150-450) 10^3/uL Neut % (Auto) (42.2-75.2) % Lymph % (Auto) (20.5-50.1) % [place] % (Auto) (2-8) % Eos % (Auto) (1.0-3.0) % Baso % (Auto) (0.0-1.0) % Add Manual Diff Sodium 133 L (136-145) mmol/L Potassium 3.7 (3.5-5.1) mmol/L Chloride 104 (98-107) mmol/L Carbon Dioxide 18 L (21-32) mmol/L Anion Gap 14.7 H (7-13) mEq/L BUN 30 H (7-18) mg/dL Creatinine 1.45 H (0.70-1.30) mg/dL Est Cr Clr Drug Dosing 54.01 mL/min Estimated GFR (MDRD) 55 Glucose 131 H (70-99) mg/dL POC Glucose 125 H 45 L* (70-99) mg/dL Lactic Acid (0.4-2.0) mmol/L Calcium 5.9 L* (8.5-10.1) mg/dL Phosphorus 2.9 (2.6-4.7) mg/dL Magnesium 1.3 L (1.8-2.4) mg/dL Total Bilirubin 0.6 (0.2-1.0) mg/dL Direct Bilirubin 0.5 H (0.0-0.2) mg/dL Indirect Bilirubin 0.1 AST 95 H (15-37) U/L ALT 71 H (16-63) U/L Alkaline Phosphatase 146 H (46-116) U/L Total Protein 4.0 L (6.4-8.2) g/dL Albumin 0.7 L (3.4-5.0) g/dL Globulin 3.3 Albumin/Globulin Ratio 0.21 Free T3 pg/mL (2.50-3.90) pg/mL Blood Type Gel Antibody Screen Crossmatch 06/05/21 06/05/21 06/05/21 Range/Units 06:16 06:16 06:16 WBC 20.2 H (5.0-10.0) 10^3/uL RBC 2.63 L (4.6-6.2) 10^6/uL Hgb 6.5 L* D (14.0-18.0) g/dL Hct 19.8 L* (40.0-54.0) % MCV 75.3 L (80-100) fL MCH 24.7 L (27.0-34.0) pg MCHC 32.8 L (33.0-35.0) g/dL Plt Count 52 L (150-450) 10^3/uL Neut % (Auto) 98.1 H (42.2-75.2) % Lymph % (Auto) 0.9 L (20.5-50.1) % [place] % (Auto) 0.9 L (2-8) % Eos % (Auto) 0.0 L (1.0-3.0) % Baso % (Auto) 0.1 (0.0-1.0) % Add Manual Diff Sodium (136-145) mmol/L Potassium (3.5-5.1) mmol/L Chloride (98-107) mmol/L Carbon Dioxide (21-32) mmol/L Anion Gap (7-13) mEq/L BUN (7-18) mg/dL Creatinine (0.70-1.30) mg/dL Est Cr Clr Drug Dosing mL/min Estimated GFR (MDRD) Glucose (70-99) mg/dL POC Glucose (70-99) mg/dL Lactic Acid 2.8 H* (0.4-2.0) mmol/L Calcium (8.5-10.1) mg/dL Phosphorus (2.6-4.7) mg/dL Magnesium (1.8-2.4) mg/dL Total Bilirubin (0.2-1.0) mg/dL Direct Bilirubin (0.0-0.2) mg/dL Indirect Bilirubin AST (15-37) U/L ALT (16-63) U/L Alkaline Phosphatase (46-116) U/L Total Protein (6.4-8.2) g/dL Albumin (3.4-5.0) g/dL Globulin Albumin/Globulin Ratio Free T3 pg/mL (2.50-3.90) pg/mL Blood Type O POSITIVE Gel Antibody Screen Negative Crossmatch See Detail 06/05/21 06/05/21 06/05/21 Range/Units 07:49 11:46 16:51 WBC (5.0-10.0) 10^3/uL RBC (4.6-6.2) 10^6/uL Hgb (14.0-18.0) g/dL Hct (40.0-54.0) % MCV (80-100) fL MCH (27.0-34.0) pg MCHC (33.0-35.0) g/dL Plt Count (150-450) 10^3/uL Neut % (Auto) (42.2-75.2) % Lymph % (Auto) (20.5-50.1) % [place] % (Auto) (2-8) % Eos % (Auto) (1.0-3.0) % Baso % (Auto) (0.0-1.0) % Add Manual Diff Sodium (136-145) mmol/L Potassium (3.5-5.1) mmol/L Chloride (98-107) mmol/L Carbon Dioxide (21-32) mmol/L Anion Gap (7-13) mEq/L BUN (7-18) mg/dL Creatinine (0.70-1.30) mg/dL Est Cr Clr Drug Dosing mL/min Estimated GFR (MDRD) Glucose (70-99) mg/dL POC Glucose 70 70 58 L (70-99) mg/dL Lactic Acid (0.4-2.0) mmol/L Calcium (8.5-10.1) mg/dL Phosphorus (2.6-4.7) mg/dL Magnesium (1.8-2.4) mg/dL Total Bilirubin (0.2-1.0) mg/dL Direct Bilirubin (0.0-0.2) mg/dL Indirect Bilirubin AST (15-37) U/L ALT (16-63) U/L Alkaline Phosphatase (46-116) U/L Total Protein (6.4-8.2) g/dL Albumin (3.4-5.0) g/dL Globulin Albumin/Globulin Ratio Free T3 pg/mL (2.50-3.90) pg/mL Blood Type Gel Antibody Screen Crossmatch SURINDER Results - Last 24 hrs: Microbiology 06/04/21 17:03 Aerobic Blood Culture - Preliminary Blood - Arm, Right Anaerobic Blood Culture - Preliminary NO GROWTH AFTER 1 DAY 06/04/21 16:58 Aerobic Blood Culture - Preliminary Blood - Arm, Right Anaerobic Blood Culture - Preliminary NO GROWTH AFTER 1 DAY 06/05/21 13:40 Gram Stain - Final Sputum - Expectorated 06/03/21 17:01 Aerobic Blood Culture - Preliminary Blood - Arm, Right Anaerobic Blood Culture - Preliminary 06/03/21 16:55 Aerobic Blood Culture - Preliminary Blood - Arm, Left Anaerobic Blood Culture - Preliminary Med Orders - Current: Current Medications Acetaminophen (Acetaminophen 325 Mg Tab) 650 mg PO Q4H PRN PRN Reason: Pain (Mild 1-3)/fever Last Admin: 06/05/21 15:07 Dose: 650 mg Documented by: Hydrocodone Bitart/Acetaminophen (Acetaminophen/Hydrocodone 325-10 Mg Tab) 1 tab PO Q4H PRN PRN Reason: Pain (moderate 4-6) Last Admin: 06/04/21 14:09 Dose: 1 tab Documented by: Dextrose/Water (50% Dextrose In Water 50 Ml Syringe) 50 ml IVPUSH ASDIRECTED PRN PRN Reason: Hypoglycemia BS<70 Last Admin: 06/05/21 17:35 Dose: 50 ml Documented by: Folic Acid (Folic Acid 1 Mg Tab) 1 mg PO DAILY [facility] Last Admin: 06/05/21 10:08 Dose: 1 mg Documented by: Cefepime HCl 1 gm/ Sodium (Chloride) 50 mls @ 100 mls/hr IV Q8H [facility] Last Admin: 06/05/21 17:39 Dose: 100 mls/hr Documented by: Dextrose/Sodium Chloride (Dextrose 5%-Normal Saline) 1,000 mls @ 150 mls/hr IV ASDIRECTED [facility] Last Admin: 06/05/21 16:03 Dose: 150 mls/hr Documented by: Vancomycin HCl 1 gm/ Sodium (Chloride) 250 mls @ 167 mls/hr IV Q12H [facility] Last Admin: 06/05/21 13:17 Dose: 167 mls/hr Documented by: Multivitamins/Minerals (Multivitamins With Iron/Calcium/Folic Acid/Minerals Tab) 1 tab PO DAILY [facility] Last Admin: 06/05/21 10:09 Dose: 1 tab Documented by: Ondansetron HCl (Ondansetron 4 Mg Tab.Dis) 4 mg PO Q4H PRN PRN Reason: nausea, able to take PO Ondansetron HCl (Ondansetron 4 Mg/2 Ml Sdv) 4 mg IVPUSH Q4H PRN PRN Reason: Nausea/Vomiting Polysaccharide Iron Complex (Iron Polysaccharides Complex 150 Mg Cap) 150 mg PO DAILY [facility] Last Admin: 06/05/21 10:08 Dose: 150 mg Documented by: Sodium Chloride (Sodium Chloride 0.9% 10 Ml Syringe) 10 ml FLUSH ASDIRECTED PRN PRN Reason: Keep Vein Open Last Admin: 06/04/21 17:22 Dose: 10 ml Documented by: Thiamine HCl (Thiamine 100 Mg Tab) 100 mg PO DAILY [facility] Last Admin: 06/05/21 10:08 Dose: 100 mg Documented by: Vancomycin HCl (Pharmacy To Dose - Vancomycin) 1 dose .XX ASDIRECTED [facility] Discontinued Medications Albuterol/Ipratropium (Albuterol/Ipratropium 3.0-0.5 Mg/3 Ml Neb Soln) 3 ml NEB ONETIME ONE Stop: 06/03/21 18:47 Last Admin: 06/03/21 18:53 Dose: 3 ml Documented by: Albuterol/Ipratropium (Albuterol/Ipratropium 3.0-0.5 Mg/3 Ml Neb Soln) Confirm Administered Dose 3 ml .ROUTE .STK-MED ONE Stop: 06/03/21 18:54 Last Admin: 06/03/21 19:24 Dose: Not Given Documented by: Dextrose/Water (50% Dextrose In Water 50 Ml Syringe) Confirm Administered Dose 50 ml .ROUTE .STK-MED ONE Stop: 06/03/21 19:50 Last Admin: 06/03/21 19:51 Dose: 50 ml Documented by: Dextrose/Water (50% Dextrose In Water 50 Ml Syringe) 50 ml IVPUSH ONETIME ONE Stop: 06/03/21 19:54 Last Admin: 06/04/21 01:14 Dose: Not Given Documented by: Dextrose/Water (50% Dextrose In Water 50 Ml Syringe) 25 ml IVPUSH ASDIRECTED PRN PRN Reason: Hypoglycemia BS<70 Last Admin: 06/04/21 06:12 Dose: 25 ml Documented by: Heparin Sodium (Porcine) (Heparin Sodium 5,000 Units/Ml Vial) 5,000 units SUBCUT Q8HR [facility] Last Admin: 06/05/21 14:56 Dose: Not Given Documented by: Sodium Chloride (Normal Saline) 1,000 mls @ 100 mls/hr IV ASDIRECTED [facility] Last Admin: 06/03/21 17:52 Dose: 100 mls/hr Documented by: Cefepime HCl 1 gm/ Sodium (Chloride) 50 mls @ 100 mls/hr IV ONETIME ONE Stop: 06/03/21 18:36 Last Admin: 06/03/21 18:48 Dose: 100 mls/hr Documented by: Metronidazole 500 mg/ Premix 100 mls @ 100 mls/hr IV ONETIME ONE Stop: 06/03/21 20:16 Last Admin: 06/03/21 21:10 Dose: 100 mls/hr Documented by: Metronidazole 500 mg/ Premix 100 mls @ 100 mls/hr IV Q8H [facility] Last Admin: 06/05/21 13:03 Dose: Not Given Documented by: Magnesium Oxide (Magnesium Oxide 250 Mg Tab) 500 mg PO BIDMEALS [facility] Stop: 06/04/21 18:01 Last Admin: 06/04/21 17:24 Dose: 500 mg Documented by: - Exam General: Reports: Alert, Oriented, Other (cachectic) Lungs: Reports: Clear to Auscultation, Normal Respiratory Effort Cardiovascular: Reports: Regular Rate, Regular Rhythm GI/Abdominal Exam: Normal Bowel Sounds, Soft Extremities: Pedal Edema (trace) Skin: Reports: Warm Neurological: Reports: No New Focal Deficit
== END 2021-06-05 20:22 | DRG 871 ==
LOC: DL.ED 16:04 → UNDOADMIN 18:02 → DL.MS 18:02
PROVIDERS: ADMIT Student in an Organized Health Care Education/Training Program; ATTEND Internal Medicine
PROC: 30233N1 Transfusion of Nonautologous Red Blood Cells into Peripheral Vein, Percutaneous Approach (ICD-10-PCS; principal; 2021-06-05)
DX: A41.9 Sepsis, unspecified organism (principal); A41.2 Sepsis due to unspecified staphylococcus; R64 Cachexia; R63.4 Abnormal weight loss; J18.9 Pneumonia, unspecified organism; E43 Unspecified severe protein-calorie malnutrition; G93.41 Metabolic encephalopathy; E87.1 Hypo-osmolality and hyponatremia; N17.9 Acute kidney failure, unspecified; Z68.1 Body mass index [BMI] 19.9 or less, adult; D69.6 Thrombocytopenia, unspecified; Z20.822 Contact with and (suspected) exposure to COVID-19; D63.8 Anemia in other chronic diseases classified elsewhere; D50.9 Iron deficiency anemia, unspecified; J45.909 Unspecified asthma, uncomplicated; F32.A Depression, unspecified; E05.90 Thyrotoxicosis, unspecified without thyrotoxic crisis or storm; E16.2 Hypoglycemia, unspecified; R79.89 Other specified abnormal findings of blood chemistry
CPT/HCPCS: 0241U; 36415; 36430; 70450; 71250; 74176; 80048; 80053; 80074; 80076; 80305; 80307; 81001; 82024; 82140; 82533; 82550; 82607; 82746; 82947; 83540; 83550; 83605; 83735; 84100; 84439; 84443; 84481; 84484; 85025; 85045; 85610; 85730; 86140; 86480; 86592; 86850; 86900; 86901; 86920; 86922; 87040; 87070; 87086; 87205; 87389; 93005; 97161; 97165; 99285; 86593; 86780; 87077; 87186; A9270-GY; J0692; J1644; J3370; J3490; J7030; J7042; J7050; J7620-GY; P9016

== ENCOUNTER 2021-07-12 00:26 | Inpatient (IN) | payer MEDICAID, OTHER ==
[2021-07-12] MEDS ORDERED: Acetaminophen 500 MG Tab PO ONE (00:59)
[2021-07-12] MEDS ORDERED: Sodium Chloride 0.9% 1,000 ML IV ONE (00:59)
[2021-07-12 01:47] LABS: CORONAVIRUS COVID-19 NAA NEGATIVE (NEGATIVE)
[2021-07-12 02:05] LABS: AMPHETAMINES,URINE NEGATIVE (NEGATIVE); BARBITURATES,URINE NEGATIVE (NEGATIVE); BENZODIAZEPINE,URINE NEGATIVE (NEGATIVE); MDMA (ECSTASY), URINE NEGATIVE (NEGATIVE); METHADONE,URINE NEGATIVE (NEGATIVE); METHAMPHETAMINES,URINE NEGATIVE (NEGATIVE); OPIATES,URINE NEGATIVE (NEGATIVE); OXYCODONE,URINE NEGATIVE (NEGATIVE); PHENCYCLIDINE,URINE NEGATIVE (NEGATIVE); TCA,URINE NEGATIVE (NEGATIVE)
[2021-07-12 02:12] LABS: ANION GAP 13.7 mEq/L (7-13); CHLORIDE,CL 97 mmol/L (98-107); SODIUM,NA 128 mmol/L (136-145)
[2021-07-12] MEDS ORDERED: Iopamidol 612 MG/ML 100 ML Bottle IVPUSH ONE ×2 (02:31→04:05)
[2021-07-12] MEDS ORDERED: Ketorolac 30 MG/ML SDV IVPUSH ONE (02:59)
[2021-07-12] MEDS ORDERED: Piperacillin/Tazobactam 3.375 GM in Sodium Chloride 0.9% 100 ML IV ONE (06:22)
[2021-07-12] MEDS ORDERED: Sodium Chloride 0.9% 1,000 ML IV SCH (07:45)
[2021-07-12] MEDS ORDERED: Enoxaparin 40 MG/0.4 ML Syringe SUBCUT SCH (09:00)
[2021-07-12] MEDS: D5 1/2 NS w/ 10 mEq/L KCl 1,000 ML IV SCH (09:47)
[2021-07-12] MEDS: Piperacillin/Tazobactam 3.375 GM in Sodium Chloride 0.9% 100 ML IV SCH ×2 (13:13→20:58)
[2021-07-12] MEDS: Acetaminophen 325 MG Tab PO PRN ×2 (15:25→21:00)
[2021-07-12] MEDS: predniSONE 20 MG Tab PO SCH (21:59)
[2021-07-12] MEDS ORDERED: Vancomycin 1 GM SDV ONE (23:56)
[2021-07-13] MEDS: Piperacillin/Tazobactam 3.375 GM in Sodium Chloride 0.9% 100 ML IV SCH ×4 (00:03→20:09)
[2021-07-13] MEDS: Acetaminophen 325 MG Tab PO PRN ×2 (00:34→18:16)
[2021-07-13] MEDS: D5 1/2 NS w/ 10 mEq/L KCl 1,000 ML IV SCH (03:49)
[2021-07-13] MEDS: predniSONE 20 MG Tab PO SCH (08:00)
[2021-07-13 08:46] LABS: CHLORIDE,CL 106 mmol/L (98-107); SODIUM,NA 134 mmol/L (136-145)
[2021-07-13] MEDS: Sodium Chloride 0.9% 1,000 ML IV SCH (13:32)
[2021-07-14] MEDS: Piperacillin/Tazobactam 3.375 GM in Sodium Chloride 0.9% 100 ML IV SCH ×4 (01:09→19:02)
[2021-07-14] MEDS: predniSONE 20 MG Tab PO SCH (08:13)
[2021-07-14] MEDS: Sodium Chloride 0.9% 1,000 ML IV SCH (08:15)
[2021-07-14 09:38] LABS: ANION GAP 14.4 mEq/L (7-13); CHLORIDE,CL 109 mmol/L (98-107); SODIUM,NA 139 mmol/L (136-145)
[2021-07-14] MEDS ORDERED: Potassium Chloride 10 MEQ Tab.ER PO ONE (10:00)
[2021-07-14] MEDS: Omeprazole 20 MG Cap.CR PO SCH (10:35)
[2021-07-14] MEDS: Acetaminophen 325 MG Tab PO PRN (23:59)
[2021-07-15] MEDS: Piperacillin/Tazobactam 3.375 GM in Sodium Chloride 0.9% 100 ML IV SCH ×4 (01:45→18:18)
[2021-07-15] MEDS: Acetaminophen 325 MG Tab PO PRN ×4 (04:11→21:30)
[2021-07-15] MEDS: Omeprazole 20 MG Cap.CR PO SCH (06:11)
[2021-07-15 09:03] LABS: ANION GAP 12.4 mEq/L (7-13); CHLORIDE,CL 110 mmol/L (98-107); SODIUM,NA 140 mmol/L (136-145)
[2021-07-15] MEDS: predniSONE 20 MG Tab PO SCH (09:53)
[2021-07-16] MEDS: Piperacillin/Tazobactam 3.375 GM in Sodium Chloride 0.9% 100 ML IV SCH ×2 (00:34→06:26)
[2021-07-16] MEDS: Omeprazole 20 MG Cap.CR PO SCH (06:26)
[2021-07-16 07:09] LABS: ANION GAP 14.1 mEq/L (7-13); CHLORIDE,CL 110 mmol/L (98-107); SODIUM,NA 141 mmol/L (136-145)
[2021-07-16] MEDS: predniSONE 20 MG Tab PO SCH (08:48)
[2021-07-16] MEDS: Acetaminophen 325 MG Tab PO PRN (08:48)
[2021-07-16] MEDS ORDERED: Potassium Chloride 10 MEQ Tab.ER PO ONE (10:34)
[2021-07-16] MEDS ORDERED: Potassium Chloride 20 MEQ in Premix Bag 1 BAG IV ONE (10:34)
[2021-07-16] MEDS ORDERED: Magnesium Sulfate/Water 4 GM in Premix Bag 1 BAG IV ONE (11:00)
[2021-07-16] MEDS ORDERED: FLU VAC QS 21-22(6MS UP)CEL/PF 60 MCG/0.5 ML SYRINGE IM ONE (16:30)
== END 2021-07-16 16:58 | disposition home or self-care (01) | DRG 545 ==
LOC: DL.ED 00:26 → DL.MS 07:07
PROVIDERS: ADMIT Internal Medicine; ATTEND Internal Medicine
DX: M32.9 Systemic lupus erythematosus, unspecified (principal); E43 Unspecified severe protein-calorie malnutrition; J16.8 Pneumonia due to other specified infectious organisms; D76.1 Hemophagocytic lymphohistiocytosis; Z68.1 Body mass index [BMI] 19.9 or less, adult; R64 Cachexia; E87.1 Hypo-osmolality and hyponatremia; F32.A Depression, unspecified; J45.909 Unspecified asthma, uncomplicated; D64.9 Anemia, unspecified; Z20.822 Contact with and (suspected) exposure to COVID-19; R50.9 Fever, unspecified; E16.2 Hypoglycemia, unspecified
CPT/HCPCS: 0240U; 36415; 71045; 72128; 72131; 74177; 80048; 80053; 80202; 80305-QW; 80307; 81001; 82550; 82728; 82947; 83605; 83690; 83735; 84443; 85018; 85025; 85027; 85651; 86140; 86850; 86900; 86901; 87040; 87086; 96374; 99284; 99285-25; A9270-GY; G0008; J1650; J1885; J2543; J3370; J3475; J3480; J7030; J7050; J7512; Q9967

== ENCOUNTER 2021-08-05 17:14 | Inpatient (IN) | payer MEDICAID ==
[2021-08-05] MEDS ORDERED: Sodium Chloride 0.9% 1,000 ML IV ONE (17:18)
[2021-08-05] MEDS ORDERED: Acetaminophen 500 MG Tab PO ONE (17:19)
[2021-08-05] MEDS ORDERED: Fluconazole 100 MG Tab PO ONE (17:19)
[2021-08-05] MEDS ORDERED: diphenhydrAMINE 50 MG/ML SDV IVPUSH ONE (17:26)
[2021-08-05] MEDS ORDERED: Piperacillin/Tazobactam 3.375 GM in Sodium Chloride 0.9% 100 ML IV ONE (17:27)
[2021-08-05] MEDS ORDERED: Morphine 2 MG/ML SYRINGE IVPUSH ONE (17:29)
[2021-08-05] MEDS ORDERED: Ondansetron 4 MG/2 ML SDV IV ONE (17:29)
[2021-08-05 18:16] LABS: ANION GAP 11.9 mEq/L (7-13); CHLORIDE,CL 99 mmol/L (98-107); SODIUM,NA 131 mmol/L (136-145)
[2021-08-05] MEDS: Sodium Chloride 0.9% 10 ML Syringe FLUSH PRN (18:36)
[2021-08-05 20:05] LABS: CORONAVIRUS COVID-19 NAA NEGATIVE (NEGATIVE); RESPIRATORY SYNCYTIAL VIR NAA NEGATIVE (NEGATIVE)
[2021-08-05] MEDS ORDERED: Ondansetron 4 MG/2 ML SDV IVPUSH PRN (21:07)
[2021-08-05] MEDS ORDERED: Temazepam 15 MG Cap PO PRN (21:07)
[2021-08-05] MEDS ORDERED: Docusate Sodium 100 MG Cap PO PRN (21:07)
[2021-08-05] MEDS ORDERED: oxyCODONE 5 MG Tab PO PRN (21:07)
[2021-08-05] MEDS: NS + KCl 20mEq/L 1,000 ML IV SCH (22:07)
[2021-08-05] MEDS: Heparin Sodium 5,000 Units/ML Vial SUBCUT SCH (22:10)
[2021-08-05] MEDS: Acetaminophen 325 MG Tab PO PRN (22:14)
[2021-08-06] MEDS ORDERED: Piperacillin/Tazobactam 3.375 GM in Sodium Chloride 0.9% 100 ML IV SCH ×2
[2021-08-06] MEDS ORDERED: Ibuprofen 600 MG Tab PO PRN (00:49)
[2021-08-06] MEDS: Piperacillin/Tazobactam 3.375 GM in Sodium Chloride 0.9% 100 ML IV SCH ×4 (01:47→22:49)
[2021-08-06] MEDS: Acetaminophen 325 MG Tab PO PRN (03:44)
[2021-08-06] MEDS ORDERED: Lactated Ringers 500 ML IV ONE ×2 (04:00→04:10)
[2021-08-06] MEDS ORDERED: Lactated Ringers 1,000 ML IV ONE (04:30)
[2021-08-06] MEDS: Omeprazole 20 MG Cap.CR PO SCH (07:39)
[2021-08-06] MEDS: Heparin Sodium 5,000 Units/ML Vial SUBCUT SCH ×3 (07:39→22:52)
[2021-08-06] MEDS: predniSONE 20 MG Tab PO SCH (07:39)
[2021-08-06] MEDS: Nystatin Susp 100,000 Unit/ML 5 ML UD Cup PO SCH ×5 (07:41→22:51)
[2021-08-06] MEDS: NS + KCl 20mEq/L 1,000 ML IV SCH (12:24)
[2021-08-07] MEDS: NS + KCl 20mEq/L 1,000 ML IV SCH (03:50)
[2021-08-07] MEDS: Piperacillin/Tazobactam 3.375 GM in Sodium Chloride 0.9% 100 ML IV SCH ×3 (03:52→13:35)
[2021-08-07] MEDS: Omeprazole 20 MG Cap.CR PO SCH (05:35)
[2021-08-07] MEDS: Heparin Sodium 5,000 Units/ML Vial SUBCUT SCH ×2 (05:35→13:37)
[2021-08-07 07:23] LABS: CHLORIDE,CL 107 mmol/L (98-107); SODIUM,NA 135 mmol/L (136-145)
[2021-08-07] MEDS: predniSONE 20 MG Tab PO SCH (08:52)
[2021-08-07] MEDS: Nystatin Susp 100,000 Unit/ML 5 ML UD Cup PO SCH ×2 (08:54→13:38)
[2021-08-07] MEDS: Sodium Chloride 0.9% 10 ML Syringe FLUSH PRN (13:38)
== END 2021-08-07 15:00 | disposition home or self-care (01) | DRG 546 ==
LOC: DL.ED 17:14 → DL.MS 19:47 → DL.OB 19:47 → UNDOADMOB 19:47 → OBSVTOIN 08-06 12:00
PROVIDERS: ADMIT Internal Medicine; ATTEND Internal Medicine
DX: M32.9 Systemic lupus erythematosus, unspecified (principal); B37.0 Candidal stomatitis; R64 Cachexia; E87.1 Hypo-osmolality and hyponatremia; E46 Unspecified protein-calorie malnutrition; N17.9 Acute kidney failure, unspecified; E44.0 Moderate protein-calorie malnutrition; Z20.822 Contact with and (suspected) exposure to COVID-19; J45.909 Unspecified asthma, uncomplicated; E11.9 Type 2 diabetes mellitus without complications; F32.A Depression, unspecified; Z68.34 Body mass index [BMI] 34.0-34.9, adult; Z79.4 Long term (current) use of insulin; Z79.899 Other long term (current) drug therapy
CPT/HCPCS: 0241U; 36415; 71045; 80048; 80053; 81001; 83605; 85014; 85018; 85025; 85027; 86140; 87040; 87081; 87430; 96365; 96366; 96372; 96375; 99221; 99232; 99239; 99284; 99284-25; A9270-GY; G0378; J1200; J1644; J2270; J2405; J2543; J3370; J3480; J3490; J7030; J7050; J7120; J7512

== ENCOUNTER 2021-08-18 11:45 | Emergency (ER) | payer MEDICAID ==
[2021-08-18 13:22] LABS: ANION GAP 14.2 mEq/L (7-13); CHLORIDE,CL 100 mmol/L (98-107); SODIUM,NA 134 mmol/L (136-145)
[2021-08-18] MEDS ORDERED: Iopamidol 755 Mg/ML 100 ML Bottle IVPUSH ONE (14:33)
[2021-08-18 16:56] LABS: AMPHETAMINES,URINE NEGATIVE (NEGATIVE); BARBITURATES,URINE NEGATIVE (NEGATIVE); BENZODIAZEPINE,URINE NEGATIVE (NEGATIVE); MDMA (ECSTASY), URINE NEGATIVE (NEGATIVE); METHADONE,URINE NEGATIVE (NEGATIVE); METHAMPHETAMINES,URINE NEGATIVE (NEGATIVE); OPIATES,URINE NEGATIVE (NEGATIVE); OXYCODONE,URINE NEGATIVE (NEGATIVE); PHENCYCLIDINE,URINE NEGATIVE (NEGATIVE); TCA,URINE NEGATIVE (NEGATIVE)
== END 2021-08-18 19:32 | disposition home or self-care (01) ==
LOC: DL.ED 11:45
DX: M32.9 Systemic lupus erythematosus, unspecified (principal); D64.9 Anemia, unspecified; R64 Cachexia; E46 Unspecified protein-calorie malnutrition; Z68.1 Body mass index [BMI] 19.9 or less, adult
CPT/HCPCS: 36415; 71045; 71260; 80053; 80305; 80307; 81001; 83605; 84443; 84484; 85025; 85379; 85651; 86140; 93005; 99284; Q9967

== ENCOUNTER 2021-09-26 19:32 | Emergency (ER) | payer MEDICAID ==
[2021-09-26] MEDS ORDERED: Acetaminophen 500 MG Tab PO ONE (20:26)
[2021-09-26 20:32] LABS: ANION GAP 12.1 mEq/L (7-13); CHLORIDE,CL 104 mmol/L (98-107); SODIUM,NA 137 mmol/L (136-145)
[2021-09-26] MEDS ORDERED: Potassium Chloride 10 MEQ Tab.ER PO ONE (20:45)
[2021-09-26 20:49] LABS: CORONAVIRUS COVID-19 NAA NEGATIVE (NEGATIVE)
== END 2021-09-26 22:25 | disposition home or self-care (01) ==
LOC: DL.ED 19:32
DX: M79.10 Myalgia, unspecified site (principal); E11.9 Type 2 diabetes mellitus without complications; E05.90 Thyrotoxicosis, unspecified without thyrotoxic crisis or storm; Z20.822 Contact with and (suspected) exposure to COVID-19
CPT/HCPCS: 0240U; 36415; 80053; 85025; 85651; 86140; 99283; A9270-GY

== ENCOUNTER 2021-09-29 21:44 | Emergency (ER) | payer MEDICAID ==
[2021-09-29] MEDS ORDERED: Acetaminophen/HYDROcodone 325-5 MG Tab PO ONE (21:45)
[2021-09-29 22:14] LABS: ANION GAP 10.6 mEq/L (7-13); CHLORIDE,CL 100 mmol/L (98-107); SODIUM,NA 132 mmol/L (136-145)
[2021-09-29] MEDS ORDERED: Iopamidol 755 Mg/ML 100 ML Bottle IVPUSH ONE (22:28)
[2021-09-29] MEDS ORDERED: methylPREDNISolone Sodium Succinate 125 MG/2 ML SDV IVPUSH ONE (22:36)
[2021-09-29] MEDS ORDERED: Sodium Chloride 0.9% 1,000 ML IV ONE (23:27)
[2021-09-29] MEDS ORDERED: fentaNYL 100 MCG/2 ML SDV IVPUSH ONE (23:40)
[2021-09-30] MEDS ORDERED: HYDROmorphone 0.5 MG/0.5 ML Syringe IVPUSH ONE (00:58)
[2021-09-30] MEDS ORDERED: Acetaminophen/HYDROcodone 325-5 MG Tab ONE (01:02)
== END 2021-09-30 01:58 | disposition home or self-care (01) ==
LOC: DL.ED 21:44
DX: R53.1 Weakness (principal); M79.10 Myalgia, unspecified site; F19.20 Other psychoactive substance dependence, uncomplicated; E11.9 Type 2 diabetes mellitus without complications; E05.90 Thyrotoxicosis, unspecified without thyrotoxic crisis or storm; Z87.891 Personal history of nicotine dependence; Z20.822 Contact with and (suspected) exposure to COVID-19
CPT/HCPCS: 36415; 71260; 80053; 80307; 81001; 82150; 83605; 83690; 84484; 85025; 85379; 86140; 96374; 96375; 99284-25; A9270-GY; J1170; J2930; J3010; J7030; Q9967; U0002

== ENCOUNTER 2021-10-05 22:33 | Emergency (ER) | payer MEDICAID ==
[2021-10-05] MEDS ORDERED: Ondansetron 4 MG/2 ML SDV IVPUSH ONE (22:37)
[2021-10-05 23:08] LABS: ACETAMINOPHEN 5 ug/mL (10-30 (Therapeutic)); ANION GAP 17.8 mEq/L (7-13); CHLORIDE,CL 102 mmol/L (98-107); SODIUM,NA 136 mmol/L (136-145)
[2021-10-06 00:05] LABS: AMPHETAMINES,URINE POSITIVE (NEGATIVE); BARBITURATES,URINE NEGATIVE (NEGATIVE); BENZODIAZEPINE,URINE POSITIVE (NEGATIVE); MDMA (ECSTASY), URINE POSITIVE (NEGATIVE); METHADONE,URINE NEGATIVE (NEGATIVE); METHAMPHETAMINES,URINE POSITIVE (NEGATIVE); OPIATES,URINE NEGATIVE (NEGATIVE); OXYCODONE,URINE NEGATIVE (NEGATIVE); PHENCYCLIDINE,URINE NEGATIVE (NEGATIVE); TCA,URINE NEGATIVE (NEGATIVE)
== END 2021-10-06 00:29 | disposition home or self-care (01) ==
LOC: DL.ED 22:33
DX: R11.2 Nausea with vomiting, unspecified (principal); F15.10 Other stimulant abuse, uncomplicated; E11.9 Type 2 diabetes mellitus without complications; Z79.899 Other long term (current) drug therapy
CPT/HCPCS: 36415; 80053; 80143; 80179; 80305-QW; 80307; 81001; 85025; 96374; 99282; 99284-25; J2405

== ENCOUNTER 2021-10-06 13:08 | Emergency (ER) | payer MEDICAID ==
[2021-10-06 12:51] LABS: ANION GAP 15.8 mEq/L (7-13); CHLORIDE,CL 100 mmol/L (98-107); SODIUM,NA 133 mmol/L (136-145)
[~2021-10-06 13:08] MED LIST: Racepinephrine 2.25% 0.5 ML Neb Soln NEB ONE; Racepinephrine 2.25% 0.5 ML Neb Soln ONE
[2021-10-06] MEDS ORDERED: methylPREDNISolone Sodium Succinate 125 MG/2 ML SDV IVPUSH ONE (13:26)
[2021-10-06] MEDS ORDERED: diphenhydrAMINE 50 MG/ML SDV IVPUSH ONE (13:26)
== END 2021-10-06 15:00 ==
LOC: DL.ED 13:08
DX: T78.3XXA Angioneurotic edema, initial encounter (principal); Z79.899 Other long term (current) drug therapy
CPT/HCPCS: 36415; 71045; 80053; 85025; 85651; 86140; 96374; 96375; 99285; 99285-25; J1200; J2930

== ENCOUNTER 2021-10-14 22:41 | Emergency (ER) | payer MEDICAID ==
[2021-10-14] MEDS ORDERED: Metoclopramide 10 MG/2 ML SDV IVPUSH ONE (23:31)
[2021-10-14] MEDS ORDERED: Sodium Chloride 0.9% 1,000 ML IV ONE (23:31)
[2021-10-14] MEDS ORDERED: Ketorolac 30 MG/ML SDV IVPUSH ONE (23:36)
[2021-10-14] MEDS ORDERED: Pantoprazole 40 MG Vial IVPUSH ONE (23:37)
[2021-10-15 00:07] LABS: ANION GAP 16.5 mEq/L (7-13); CHLORIDE,CL 98 mmol/L (98-107); SODIUM,NA 132 mmol/L (136-145)
== END 2021-10-15 01:47 | disposition home or self-care (01) ==
LOC: DL.ED 22:41
DX: M32.9 Systemic lupus erythematosus, unspecified (principal); E86.0 Dehydration; E11.9 Type 2 diabetes mellitus without complications; E05.90 Thyrotoxicosis, unspecified without thyrotoxic crisis or storm; D69.6 Thrombocytopenia, unspecified; E87.1 Hypo-osmolality and hyponatremia; E43 Unspecified severe protein-calorie malnutrition; F19.20 Other psychoactive substance dependence, uncomplicated; Z68.20 Body mass index [BMI] 20.0-20.9, adult; Z88.8 Allergy status to other drugs, medicaments and biological substances; Z79.899 Other long term (current) drug therapy
CPT/HCPCS: 36415; 80053; 81001; 85025; 86140; 96361; 96374; 96375; 99284; C9113; J1885; J2765; J7030

== ENCOUNTER 2021-10-15 10:43 | Observation (INO) | payer MEDICAID ==
[2021-10-15] MEDS ORDERED: Sodium Chloride 0.9% 1,000 ML IV ONE (11:30)
[2021-10-15 12:07] LABS: AMPHETAMINES,URINE NEGATIVE (NEGATIVE); BARBITURATES,URINE NEGATIVE (NEGATIVE); BENZODIAZEPINE,URINE POSITIVE (NEGATIVE); MDMA (ECSTASY), URINE NEGATIVE (NEGATIVE); METHADONE,URINE NEGATIVE (NEGATIVE); METHAMPHETAMINES,URINE NEGATIVE (NEGATIVE); OPIATES,URINE NEGATIVE (NEGATIVE); OXYCODONE,URINE NEGATIVE (NEGATIVE); PHENCYCLIDINE,URINE NEGATIVE (NEGATIVE); TCA,URINE NEGATIVE (NEGATIVE)
[2021-10-15 12:16] LABS: ACETAMINOPHEN 24 ug/mL (10-30 (Therapeutic)); ANION GAP 25.8 mEq/L (7-13); CHLORIDE,CL 93 mmol/L (98-107); SODIUM,NA 129 mmol/L (136-145)
[2021-10-15 13:00] LABS: CORONAVIRUS COVID-19 NAA NEGATIVE (NEGATIVE)
[2021-10-15] MEDS ORDERED: Sodium Chloride 0.9% 1,000 ML IV SCH (13:00)
[2021-10-15] MEDS ORDERED: Sodium Chloride 0.9% 10 ML Syringe FLUSH PRN (14:59)
[2021-10-15] MEDS ORDERED: Ondansetron 4 MG Tab.DIS PO PRN (14:59)
[2021-10-15] MEDS ORDERED: Docusate Sodium 100 MG Cap PO PRN (14:59)
[2021-10-15] MEDS ORDERED: Ibuprofen 600 MG Tab PO PRN (14:59)
[2021-10-15] MEDS ORDERED: 50% Dextrose in Water 50 ML Syringe IVPUSH PRN (15:22)
[2021-10-15] MEDS ORDERED: Metoclopramide 10 MG/2 ML SDV IVPUSH PRN (15:38)
[2021-10-15] MEDS: methylPREDNISolone Sodium Succinate 40 MG/1 ML SDV IVPUSH SCH ×2 (15:58→19:20)
[2021-10-15] MEDS: Morphine 2 MG/ML SYRINGE IVPUSH PRN ×2 (16:02→20:42)
[2021-10-15] MEDS: Sulfamethoxazole/Trimethoprim 800-160 MG Tab PO SCH (16:12)
[2021-10-15] MEDS: Acetaminophen 325 MG Tab PO PRN (18:01)
[2021-10-15] MEDS: Insulin Lispro 100 Units/ML 3 ML Vial SUBCUT SCH ×2 (18:04→21:54)
[2021-10-15] MEDS: NS + KCl 20mEq/L 1,000 ML IV SCH (20:41)
[2021-10-15] MEDS ORDERED: Hydroxychloroquine 200 MG Tab PO SCH (21:00)
[2021-10-15] MEDS: Sodium Chloride 0.9% 10 ML Syringe FLUSH SCH (22:10)
[2021-10-15] MEDS: Heparin Sodium 5,000 Units/ML Vial SUBCUT SCH (22:11)
[2021-10-15] MEDS ORDERED: Albuterol/Ipratropium 3.0-0.5 MG/3 ML Neb Soln NEB PRN (22:24)
[2021-10-16] MEDS: methylPREDNISolone Sodium Succinate 40 MG/1 ML SDV IVPUSH SCH ×4 (01:01→17:25)
[2021-10-16] MEDS: NS + KCl 20mEq/L 1,000 ML IV SCH (04:42)
[2021-10-16] MEDS: Pantoprazole 40 MG Tab.CR PO SCH (06:33)
[2021-10-16] MEDS: Heparin Sodium 5,000 Units/ML Vial SUBCUT SCH ×3 (06:40→22:30)
[2021-10-16 07:21] LABS: ANION GAP 16.3 mEq/L (7-13); CHLORIDE,CL 102 mmol/L (98-107); SODIUM,NA 134 mmol/L (136-145)
[2021-10-16] MEDS: Insulin Lispro 100 Units/ML 3 ML Vial SUBCUT SCH ×4 (07:37→21:04)
[2021-10-16] MEDS: Metoprolol Succinate 50 MG Tab.ER PO SCH (08:34)
[2021-10-16] MEDS: Hydroxychloroquine 200 MG Tab PO SCH (08:34)
[2021-10-16] MEDS: Multivitamins with Iron/Calcium/Folic Acid/Minerals Tab PO SCH (08:34)
[2021-10-16] MEDS: Sodium Chloride 0.9% 10 ML Syringe FLUSH SCH ×3 (08:35→21:00)
[2021-10-16] MEDS ORDERED: Acetaminophen/HYDROcodone 325-10 MG Tab PO PRN (09:32)
[2021-10-16] MEDS: Acetaminophen 325 MG Tab PO PRN (19:48)
[2021-10-17] MEDS: methylPREDNISolone Sodium Succinate 40 MG/1 ML SDV IVPUSH SCH ×3 (01:13→12:33)
[2021-10-17] MEDS: Heparin Sodium 5,000 Units/ML Vial SUBCUT SCH (05:38)
[2021-10-17 05:50] LABS: ANION GAP 13.2 mEq/L (7-13); CHLORIDE,CL 106 mmol/L (98-107); SODIUM,NA 140 mmol/L (136-145)
[2021-10-17] MEDS: Pantoprazole 40 MG Tab.CR PO SCH (06:03)
[2021-10-17] MEDS: Hydroxychloroquine 200 MG Tab PO SCH (08:17)
[2021-10-17] MEDS: Multivitamins with Iron/Calcium/Folic Acid/Minerals Tab PO SCH (08:17)
[2021-10-17] MEDS: Metoprolol Succinate 50 MG Tab.ER PO SCH (08:17)
[2021-10-17] MEDS: Insulin Lispro 100 Units/ML 3 ML Vial SUBCUT SCH ×2 (08:18→12:07)
[2021-10-17] MEDS: Sulfamethoxazole/Trimethoprim 800-160 MG Tab PO SCH (08:18)
[2021-10-17] MEDS: Sodium Chloride 0.9% 10 ML Syringe FLUSH SCH (08:19)
== END 2021-10-17 12:55 | disposition home or self-care (01) ==
LOC: DL.ED 10:43 → DL.MS 13:22 → INTOOBSV 13:22 → DL.MS 13:22 → UNDOADMOB 13:22 → DL.ED 13:47
PROVIDERS: ADMIT Internal Medicine; ATTEND Internal Medicine
DX: N17.9 Acute kidney failure, unspecified (principal); I10 Essential (primary) hypertension; E11.9 Type 2 diabetes mellitus without complications; E05.90 Thyrotoxicosis, unspecified without thyrotoxic crisis or storm; J45.909 Unspecified asthma, uncomplicated; R79.89 Other specified abnormal findings of blood chemistry; E87.1 Hypo-osmolality and hyponatremia; E44.0 Moderate protein-calorie malnutrition; T78.3XXA Angioneurotic edema, initial encounter; M32.9 Systemic lupus erythematosus, unspecified; E87.2 Acidosis; E83.42 Hypomagnesemia; Z20.822 Contact with and (suspected) exposure to COVID-19; Z79.899 Other long term (current) drug therapy; Z87.891 Personal history of nicotine dependence
CPT/HCPCS: 0240U; 36415; 80053; 80143; 80305-QW; 80307; 81001; 82947; 83605; 83735; 85025; 85651; 87040; 94640; 96361; 96365; 96372; 96375; 96376; 97165-GO; 99285; A9270-GY; G0378; J1644; J1815-GY; J2270; J2920; J3475; J3480; J3490; J7030; J7620-GY

== ENCOUNTER 2021-11-19 09:05 | Emergency (ER) | payer MEDICAID ==
[2021-11-19 10:04] LABS: ANION GAP 9.4 mEq/L (7-13); CHLORIDE,CL 104 mmol/L (98-107); SODIUM,NA 136 mmol/L (136-145)
[2021-11-19 10:11] LABS: ESTIMATED GFR 124 mL/min (>=60)
[2021-11-19 10:27] LABS: PTT,PARTIAL THROMBOPLSTIN TIME 20.6 SEC (22.0-34.0)
[2021-11-19] MEDS: HYDROmorphone 1 MG/ML Syringe IVPUSH ONE (10:29)
[2021-11-19] MEDS: Metoclopramide 10 MG/2 ML SDV IVPUSH ONE (10:29)
[2021-11-19 11:21] LABS: AMPHETAMINES,URINE NEGATIVE (NEGATIVE); BARBITURATES,URINE NEGATIVE (NEGATIVE); BENZODIAZEPINE,URINE POSITIVE (NEGATIVE); MDMA (ECSTASY), URINE NEGATIVE (NEGATIVE); METHADONE,URINE NEGATIVE (NEGATIVE); METHAMPHETAMINES,URINE NEGATIVE (NEGATIVE); OPIATES,URINE NEGATIVE (NEGATIVE); OXYCODONE,URINE NEGATIVE (NEGATIVE); PHENCYCLIDINE,URINE NEGATIVE (NEGATIVE); TCA,URINE NEGATIVE (NEGATIVE)
[2021-11-19] MEDS: Iopamidol 612 MG/ML 100 ML Bottle IVPUSH ONE (11:31)
== END 2021-11-19 13:41 | disposition home or self-care (01) ==
LOC: DL.ED 09:05
DX: M32.9 Systemic lupus erythematosus, unspecified (principal); D50.0 Iron deficiency anemia secondary to blood loss (chronic); D61.818 Other pancytopenia; E11.9 Type 2 diabetes mellitus without complications; Z88.8 Allergy status to other drugs, medicaments and biological substances; J98.11 Atelectasis; J90 Pleural effusion, not elsewhere classified; R16.0 Hepatomegaly, not elsewhere classified; M89.9 Disorder of bone, unspecified
CPT/HCPCS: 36415; 74177; 80053; 80305; 80307; 81003; 82150; 82272; 83540; 83550; 83605; 83690; 85025; 85610; 85730; 86140; 86850; 86900; 86901; 96374; 96375; 99284; 99285; J1170; J2765; Q9967

== ENCOUNTER 2022-07-30 17:15 | Emergency (ER) | payer MEDICAID ==
[2022-07-30] MEDS ORDERED: Famotidine 20 MG/2 ML SDV IVPUSH ONE (17:23)
[2022-07-30] MEDS ORDERED: Ondansetron 4 MG/2 ML SDV IV ONE (17:23)
[2022-07-30] MEDS ORDERED: Sodium Chloride 0.9% 1,000 ML IV SCH (17:30)
[2022-07-30 18:11] LABS: ANION GAP 13.7 mEq/L (7-13); CHLORIDE,CL 101 mmol/L (98-107); ESTIMATED GFR 119 mL/min (>=60); SODIUM,NA 137 mmol/L (136-145)
[2022-07-30 18:19] LABS: AMPHETAMINES,URINE POSITIVE (NEGATIVE); BARBITURATES,URINE NEGATIVE (NEGATIVE); BENZODIAZEPINE,URINE NEGATIVE (NEGATIVE); MDMA (ECSTASY), URINE NEGATIVE (NEGATIVE); METHADONE,URINE NEGATIVE (NEGATIVE); METHAMPHETAMINES,URINE POSITIVE (NEGATIVE); OPIATES,URINE NEGATIVE (NEGATIVE); OXYCODONE,URINE NEGATIVE (NEGATIVE); PHENCYCLIDINE,URINE NEGATIVE (NEGATIVE); TCA,URINE NEGATIVE (NEGATIVE)
[2022-07-30] MEDS ORDERED: Promethazine 25 MG Tab PO ONE (18:35)
== END 2022-07-30 18:58 | disposition home or self-care (01) ==
LOC: DL.ED 17:15
DX: K29.00 Acute gastritis without bleeding (principal); F15.10 Other stimulant abuse, uncomplicated; F12.10 Cannabis abuse, uncomplicated; E11.9 Type 2 diabetes mellitus without complications; J45.909 Unspecified asthma, uncomplicated; Z88.8 Allergy status to other drugs, medicaments and biological substances; Z79.899 Other long term (current) drug therapy
CPT/HCPCS: 36415; 80053; 80305-QW; 80307; 81001; 82150; 82947; 83605; 83615; 83690; 83735; 84443; 84484; 85025; 85651; 86140; 93005; 93010; 96361; 96374; 99284-25; 99285; A9270-GY; J3490; J7030

== ENCOUNTER 2022-10-20 19:04 | Emergency (ER) | payer MEDICAID ==
[2022-10-20] MEDS ORDERED: Sodium Chloride 0.9% 10 ML Syringe FLUSH PRN (19:10)
[2022-10-20] MEDS ORDERED: Acetaminophen 325 MG Tab PO ONE ×2 (19:17→19:20)
[2022-10-20] MEDS ORDERED: Ketorolac 30 MG/ML SDV IVPUSH ONE (19:17)
[2022-10-20] MEDS: Sodium Chloride 0.9% 1,000 ML IV ONE ×2 (19:18→19:33)
[2022-10-20] MEDS ORDERED: Levofloxacin/Dextrose 5%-Water 750 MG in Premix Bag 1 BAG IV ONE (19:20)
[2022-10-20] MEDS ORDERED: Sodium Chloride 0.9% 1,000 ML IV ONE (19:21)
[2022-10-20 19:22] LABS: EOSINOPHILS PERCENT AUTO 0.7 % (1.0-3.0); HEMATOCRIT 27.1 % (40.0-54.0); MEAN CORPUSCULAR HEMOGLOBIN 24.1 pg (27.0-34.0); MEAN CORPUSCULAR HGB CONC 33.2 g/dL (33.0-35.0); MEAN CORPUSCULAR VOLUME 72.7 fL (80-100); MONOCYTES PERCENT AUTO 2.1 % (2-8); NEUTROPHILS PERCENT AUTO 83.2 % (42.2-75.2); PLATELET COUNT,PLT 178 10^3/uL (150-450); RED BLOOD CELL COUNT 3.73 10^6/uL (4.6-6.2); WHITE BLOOD CELL COUNT,WBC 8.2 10^3/uL (5.0-10.0)
[2022-10-20] MEDS ORDERED: Levofloxacin/Dextrose 5%-Water 150 ML IV ONE (19:26)
[2022-10-20] MEDS ORDERED: Dexamethasone 4 MG/ML SDV IVPUSH ONE (19:31)
[2022-10-20] MEDS ORDERED: Albuterol/Ipratropium 3.0-0.5 MG/3 ML Neb Soln NEB ONE ×3 (19:31→19:38)
[2022-10-20] MEDS ORDERED: guaiFENesin/Dextromethorphan 100-10 MG/5 ML Soln 5 ML Cup PO ONE (19:31)
[2022-10-20] MEDS ORDERED: Benzonatate 100 MG Cap PO ONE (19:31)
[2022-10-20 19:34] LABS: ALBUMIN 2.5 g/dL (3.4-5.0); ANION GAP 10.8 mEq/L (7-13); BILIRUBIN TOTAL 0.3 mg/dL (0.2-1.0); BUN/CREATININE RATIO 11.1 (No establ ref range); CALCIUM 7.9 mg/dL (8.5-10.1); CREATININE 0.9 mg/dL (0.70-1.30); EST CRCL DRUG DOSING (CG) 86.39 mL/min; POTASSIUM,K 3.8 mmol/L (3.5-5.1)
[2022-10-20 19:35] LABS: LACTIC ACID 0.7 mmol/L (0.4-2.0)
[2022-10-20 19:39] LABS: A/G RATIO 0.45
== END 2022-10-20 21:39 | disposition home or self-care (01) ==
LOC: DL.ED 19:04
DX: R07.89 Other chest pain (principal); J20.9 Acute bronchitis, unspecified; R65.10 Systemic inflammatory response syndrome (SIRS) of non-infectious origin without acute organ dysfunction; E11.9 Type 2 diabetes mellitus without complications; Z88.8 Allergy status to other drugs, medicaments and biological substances; Z20.822 Contact with and (suspected) exposure to COVID-19
CPT/HCPCS: 36415; 71046; 80053; 83605; 84145; 84484; 85025; 87040; 87077; 87635; 87804; 93005; 96365; 96375; 99291; A9270; J1100; J1885; J1956; J7030; J7620-GY; U0002

== ENCOUNTER 2023-01-30 13:40 | Emergency (ER) | payer MEDICAID ==
[2023-01-30] MEDS ORDERED: Metoclopramide 10 MG Tab PO ONE (14:06)
[2023-01-30] MEDS ORDERED: Acetaminophen/HYDROcodone 325-5 MG Tab PO ONE (14:06)
[2023-01-30] MEDS ORDERED: Famotidine 20 MG Tab PO ONE (14:12)
[2023-01-30] MEDS ORDERED: predniSONE 20 MG Tab PO ONE (14:13)
[2023-01-30] MEDS ORDERED: Take Home: predniSONE 20 MG, 4 Tab Pack PO ONE (14:25)
[2023-01-30] MEDS ORDERED: Take Home: Acetaminophen/HYDROcodone 325-5 MG, 5 Tab Pack PO ONE (14:25)
== END 2023-01-30 14:50 | disposition home or self-care (01) ==
LOC: DL.ED 13:40
DX: M32.9 Systemic lupus erythematosus, unspecified (principal); K29.70 Gastritis, unspecified, without bleeding; E11.9 Type 2 diabetes mellitus without complications; J45.909 Unspecified asthma, uncomplicated; Z79.899 Other long term (current) drug therapy; Z88.8 Allergy status to other drugs, medicaments and biological substances
CPT/HCPCS: 99284; A9270; J7512; 99283

== ENCOUNTER 2023-02-02 16:45 | Emergency (ER) | payer MEDICAID ==
[2023-02-02] MEDS ORDERED: Sodium Chloride 0.9% 10 ML Syringe FLUSH PRN ×2 (16:54→16:58)
[2023-02-02] MEDS ORDERED: Ondansetron 4 MG/2 ML SDV IV ONE (16:56)
[2023-02-02] MEDS ORDERED: Sodium Chloride 0.9% 1,000 ML IV ONE ×2 (16:56→16:58)
[2023-02-02] MEDS ORDERED: methylPREDNISolone Sodium Succinate 125 MG/2 ML SDV IVPUSH ONE (16:56)
[2023-02-02] MEDS ORDERED: diphenhydrAMINE 50 MG/ML SDV IVPUSH ONE (16:57)
[2023-02-02] MEDS ORDERED: Acetaminophen 325 MG Tab PO ONE (17:01)
[2023-02-02 17:29] LABS: HEMATOCRIT 26.1 % (40.0-54.0); HEMOGLOBIN 8.5 g/dL (14.0-18.0); MEAN CORPUSCULAR HEMOGLOBIN 23.2 pg (27.0-34.0); MEAN CORPUSCULAR HGB CONC 32.6 g/dL (33.0-35.0); MEAN CORPUSCULAR VOLUME 71.1 fL (80-100); RED BLOOD CELL COUNT 3.67 10^6/uL (4.6-6.2); WHITE BLOOD CELL COUNT,WBC 14.2 10^3/uL (5.0-10.0)
[2023-02-02 18:00] LABS: ALBUMIN 1.9 g/dL (3.4-5.0); ANION GAP 16.6 mEq/L (7-13); BILIRUBIN TOTAL 0.8 mg/dL (0.2-1.0); BUN/CREATININE RATIO 20.8 (No establ ref range); CALCIUM 7.5 mg/dL (8.5-10.1); CREATININE 1.44 mg/dL (0.70-1.30); EST CRCL DRUG DOSING (CG) 45.95 mL/min; POTASSIUM,K 3.6 mmol/L (3.5-5.1); PROTEIN TOTAL,TP 7.7 g/dL (6.4-8.2)
[2023-02-02 18:06] LABS: LACTIC ACID 1.9 mmol/L (0.4-2.0)
[2023-02-02 18:11] LABS: A/G RATIO 0.33
[2023-02-02 18:18] LABS: BASOPHILS PERCENT AUTO 0.1 % (0.0-1.0); LYMPHOCYTES PERCENT AUTO 3.7 % (20.5-50.1); MONOCYTES PERCENT AUTO 3.5 % (2-8); NEUTROPHILS PERCENT AUTO 92.7 % (42.2-75.2); PLATELET COUNT,PLT 5 10^3/uL (150-450)
[2023-02-02 18:20] LABS: BAND PERCENT MAN 13 %; LYMPHOCYTES PERCENT MAN 7 % (20-50); MONOCYTES PERCENT MAN 4 % (2-8); SEG NEUTROPHILS PERCENT MAN 76 % (42-75)
[2023-02-02] MEDS ORDERED: Sodium Chloride 0.9% 1,000 ML IV SCH (19:15)
[2023-02-02] MEDS ORDERED: fentaNYL 100 MCG/2 ML SDV IVPUSH ONE (20:23)
[2023-02-02] MEDS ORDERED: Naloxone 2 MG/2 ML Syringe IVPUSH PRN (20:23)
== END 2023-02-02 20:44 ==
LOC: DL.ED 16:45
DX: A41.9 Sepsis, unspecified organism (principal); N17.9 Acute kidney failure, unspecified; D69.6 Thrombocytopenia, unspecified; M32.9 Systemic lupus erythematosus, unspecified; J45.909 Unspecified asthma, uncomplicated; E11.9 Type 2 diabetes mellitus without complications; E05.90 Thyrotoxicosis, unspecified without thyrotoxic crisis or storm; Z88.8 Allergy status to other drugs, medicaments and biological substances; Z20.822 Contact with and (suspected) exposure to COVID-19
CPT/HCPCS: 36415; 71045; 80053; 83605; 84145; 85025; 87040; 87077; 87804; 93005; 93010; 96361; 96365; 96375; 99285; 99285-25; A9270-GY; J1200; J2405; J2930; J3010; J3370; J3490; J7030; J7050; U0002